=== PATIENT | female | born 1955 | race Caucasian/White ===

== ENCOUNTER 2016-02-21 22:21 | Emergency (ER) | payer MEDICARE ==
[~2016-02-21] VITALS: Ht 167.6 cm; Wt 99.8 kg
[~2016-02-21 22:21] MED LIST: ACETAMINOPHEN500 M5 PO; ALBUTEROL SULF8.5 GM INH; ASPIR 8181 MG ORAL; AZITHROMYCIN250 MG ORAL; FORTAMET500 MG PO; LOSARTAN POTASS50 MG ORAL; PREDNISONE20 MG ORAL; PROVENTIL HFA6.7 G1 IH; THIOTHIXENE5 MG ORAL
--- NOTE | 2016-02-21 22:29 | Emergency Room Report ---
History of Present Illness General Chief Complaint: Chest Pain Source: Patient Present Illness [facility] This is a 60-year-old female with multiple medical problem and also psychiatric problem. She presents with chief complaint of chest pain. She said his been ongoing since June of last year. She gets this frequently. Denies any fever chills denies any nausea vomiting. This most recent episode been lasting since 5 PM which is almost 6 hours ago. Complaining of pain to the left upper chest. No radiation. No shortness of breath. No diaphoresis. Take aspirin it did not help. Denies any other complaint. Similar symptom in the past. Allergies: Coded Allergies: NO KNOWN ALLERGIES (Unverified Allergy, Unknown, 02/18/14) Patient History Past Medical History: see triage record, old chart reviewed, DM, HTN, asthma, psych hx Past Surgical History: other Pertinent Family History: none Social History: Denies: smoking Now: No Immunizations: other Reviewed Nursing Documentation: PMH: Agreed, PSxH: Agreed Nursing Documentation-PMH Hx Hypertension: Yes - leukocytosis Hx Asthma: Yes Hx COPD: No - Sleep Apnea Hx Diabetes: Yes Hx Cancer: No Hx Headaches: Yes Hx Weakness: Yes Hx Fatigue: Yes Review of Systems Eye: Denies: blurred vision, eye pain ENT: Denies: ear pain, nose congestion, throat swelling Respiratory: Denies: cough, shortness of breath Cardiovascular: Reports: chest pain, Denies: palpitations Gastrointestinal: Denies: abdominal pain, diarrhea, nausea, vomiting Musculoskeletal: Denies: back pain, joint pain Skin: Denies: rash Neurological: Denies: headache, numbness Endocrine: Denies: increased thirst, increased urine Hematologic/Lymphatic: Denies: easy bruising All Other Systems: negative except mentioned in HPI Physical Exam Vital Signs Date Time Temp Pulse Resp B/P Pulse Ox O2 Delivery O2 Flow Rate FiO2 02/21/16 22:17 98.1 84 16 128/71 99 Room Air vitals normal Sp02 EP Interpretation: reviewed, normal General Appearance: well appearing, no apparent distress, alert, obese Head: normocephalic, atraumatic Eyes: bilateral eye EOMI, bilateral eye PERRL ENT: hearing grossly normal, normal pharynx Neck: full range of motion, supple, no meningismus Respiratory: chest non-tender, lungs clear, normal breath sounds Cardiovascular #1: regular rate, rhythm, no murmur Gastrointestinal: normal bowel sounds, non tender, no mass, no organomegaly, no bruit, non-distended Musculoskeletal: back normal, gait/station normal, normal range of motion Neurologic: alert, oriented x3 Psychiatric: mood/affect normal Skin: warm/dry Medical Decision Making Diagnostic Impression: Primary Impression: Chest pain Qualified Codes: R07.9 - Chest pain, unspecified Additional Impressions: Proteinuria Obesity (BMI 30-39.9) ER Course Patient presents with atypical chest pain. Very reproducible. Better with Toradol. No evidence of ACS, PE, dissection. She has a strong psychiatric component. This pain been ongoing for several months. We'll discharge home. Lab Results Impression labs unremarkable. EKG Diagnostic Results Rate: normal Rhythm: NSR ST Segments: no acute changes Rhythm Strip Diag. Results EP Interpretation: yes Rate: 85 Rhythm: NSR, no PVC's, no ectopy Chest X-Ray Diagnostic Results EP Interpretation: Yes Findings: no consolidation, no effusion, no pneumothorax, no acute cardiopulmonary disease Number of Views: 1 Last Vital Signs Date Time Temp Pulse Resp B/P Pulse Ox O2 Delivery O2 Flow Rate FiO2 02/21/16 22:17 98.1 84 16 128/71 99 Room Air Status: improved Disposition: HOME, SELF-CARE Condition: Stable Scripts Ibuprofen* (MOTRIN*) 600 Mg Tablet 600 MG ORAL THREE TIMES A DAY, #30 TAB 0 Refills Prov: PERFECTO ABREU M.D. 02/21/16 Patient Instructions: Nonspecific Chest Pain Additional Instructions: Followup with your DrMili in 3-5 days. Return if symptom worsen. PERFECTO ABREU M.D. Feb 21, 2016 22:29
[2016-02-21 22:51] VITALS: BP 128/71
[2016-02-21] MEDS ORDERED: Ketorolac 30mg Inj IV ONE (23:00)
[2016-02-21 23:19] LABS: BASOPHILS % (AUTO) 1.3 % (0.0-2.0); LYMPHOCYTES % (AUTO) 24.2 % (20.0-45.0); MEAN CORPUSCULAR HEMOGLOBIN 27.1 PG (27.0-31.0); MEAN CORPUSCULAR HGB CONC 30.7 G/DL (32.0-36.0); MEAN CORPUSCULAR VOLUME 88 FL (80-99); MEAN PLATELET VOLUME 6.7 FL (6.5-10.1); NEUTROPHILS % (AUTO) 55.5 % (45.0-75.0); PLATELET COUNT 434 K/UL (150-450); RED BLOOD COUNT 5.22 M/UL (4.20-5.40); RED CELL DISTRIBUTION WIDTH 13.5 % (11.6-14.8); WHITE BLOOD COUNT 12.8 K/UL (4.8-10.8)
[2016-02-21 23:28] VITALS: BP 133/78
[2016-02-21 23:28] LABS: APPEARANCE,URINE CLEAR; KETONES,URINE NEGATIVE (NEGATIVE); LEUKOCYTE ESTERASE ,URINE 1+ (NEGATIVE); NITRITE,URINE NEGATIVE (NEGATIVE); PH,URINE 6 (4.5-8.0); PROTEIN,URINE 1+ (NEGATIVE); UROBILINOGEN,URINE NORMAL MG/DL (0.0-1.0)
[2016-02-21 23:34] LABS: TROPONIN I < 0.30 ng/mL (<=0.30)
[2016-02-21 23:41] LABS: ALANINE AMINOTRANSFERASE 17 U/L (3-33); ALBUMIN/GLOBULIN RATIO 1.1 (1.0-2.7); ANION GAP 18 (5-15); ASPARTATE AMINO TRANSFERASE 17 U/L (5-40); CALCIUM 9.9 mg/dL (8.6-10.2); CARBON DIOXIDE 24 mEQ/L (20-30); CHLORIDE 95 mEQ/L (98-107); CREATININE 0.9 mg/dL (0.5-0.9); GLOMERULAR FILTRATION RATE > 60 mL/min (>60); HEMOLYSIS 35; POTASSIUM 4.6 mEQ/L (3.4-4.9); SODIUM 137 mEQ/L (135-145); TOTAL PROTEIN 7.2 g/dL (6.6-8.7)
[2016-02-21 23:46] LABS: BACTERIA,URINE FEW /HPF; RBC,URINE 0-2 /HPF (0 - 2); SQUAMOUS EPITHELIAL CELL,UR FEW /LPF (NONE/OCC)
[2016-02-21 23:51] LABS: CKMB 1.8 ng/mL (< 3.8)
[2016-02-21] MEDS ORDERED: IBUPROFEN600 MG ORAL (23:58)
[2016-02-22 00:22] VITALS: BP 140/79
[2016-02-22 00:23] VITALS: BP 133/78
--- NOTE | 2016-02-22 11:10 | Diagnostic Imaging Report ---
Indication: Chest Pain Comparison: 01/14/16 A single view chest radiograph was obtained. Findings: Heart is borderline enlarged. Lungs are clear. Bones are slight osteopenic. Impression: No acute disease
--- NOTE | 2016-02-24 19:51 | Cardiology Report ---
APPROVED REPORT EKG Measurement Heart [id number] Normal sinus rhythm Left axis deviation Abnormal ECG
== END 2016-02-22 00:23 | disposition home or self-care (01) ==
LOC: EDBD 22:21 → EMR 22:30
DX: R07.89 Other chest pain (principal); R80.9 Proteinuria, unspecified; J45.909 Unspecified asthma, uncomplicated; E11.9 Type 2 diabetes mellitus without complications; I10 Essential (primary) hypertension; E66.9 Obesity, unspecified; Z68.35 Body mass index [BMI] 35.0-35.9, adult; G47.30 Sleep apnea, unspecified
CPT/HCPCS: 36415; 71010; 80053; 81003; 82550; 82553; 84484; 85025; 93005; 96374; 99284; J1885

== ENCOUNTER 2016-07-16 07:20 | Emergency (ER) | payer SELFPAY ==
[~2016-07-16] VITALS: Ht 157.5 cm; Wt 88.0 kg
[~2016-07-16 07:20] MED LIST changes: +IBUPROFEN600 MG ORAL
--- NOTE | 2016-07-16 07:26 | Emergency Room Report ---
History of Present Illness General Chief Complaint: To Be Triaged Present Illness HPI 60YOF walk-in with 2 days of "a cold" that is "making my asthma worse." Endorses dry cough, wheezing at home. Not much improvement with home proventil/ abuterol. Otherwise denies chest pain, SOB, fever/chills, URI symptoms. Also, states she had an "emergency doctor come to my house" 2 days ago and gave me Keflex for "abscess in my genital area" that is not improving. + history of DM. No previous abscess. Otherwise denies abd pain, nausea/vomiting, dysuria. Allergies: Coded Allergies: NO KNOWN ALLERGIES (Unverified Allergy, Unknown, 02/18/14) Patient History Past Medical History: DM, HTN, arrhyth, psych hx Past Surgical History: none Pertinent Family History: none Social History: Denies: alcohol use, drug use, smoking Now: No Immunizations: UTD Reviewed Nursing Documentation: PMH: Agreed, PSxH: Agreed Nursing Documentation-PMH Hx Hypertension: Yes - leukocytosis Hx Asthma: Yes Hx COPD: No - Sleep Apnea Hx Diabetes: Yes Hx Cancer: No Hx Headaches: Yes Hx Weakness: Yes Hx Fatigue: Yes Review of Systems All Other Systems: negative except mentioned in HPI Physical Exam Sp02 EP Interpretation: reviewed, abnormal General Appearance: normal inspection, well appearing, no apparent distress, alert, GCS 15, non-toxic Eyes: bilateral eye EOMI, bilateral eye PERRL ENT: normal ENT inspection, hearing grossly normal, normal voice Neck: normal inspection, full range of motion, supple, no bony tend Respiratory: normal inspection, lungs clear, normal breath sounds, no respiratory distress, no retraction, no accessory muscle use, speaking full sentences, wheezing Cardiovascular #1: regular rate, rhythm, no edema Gastrointestinal: normal inspection, normal bowel sounds, non tender, soft, no guarding, no hernia Genitourinary: no CVA tenderness Musculoskeletal: normal inspection, back normal, normal range of motion, Shahnaz' s Sign negative Neurologic: normal inspection, alert, oriented x3, responsive, senior adults director III-XII nml as tested, speech normal Psychiatric: normal inspection, judgement/insight normal, mood/affect normal Skin: normal inspection, normal color, no rash Lymphatic: normal inspection Medical Decision Making Diagnostic Impression: Primary Impression: Asthma Qualified Codes: J45.21 - Mild intermittent asthma with (acute) exacerbation ER Course Acute asthma exac - VSS. Afebrile - No rhonchi or systemic symptoms to suggest PNA - Improved with 1 albuterol neb, prednisone - Rx proventil refilled, Rx prednisone Genital abscess - Will add on Bactrim given DM history PMD followup as needed DC home Status: improved Disposition: HOME, SELF-CARE Scripts Trimethoprim/Sulfamethoxazole 160/800* (BACTRIM DS TABLET*) 1 Each Tablet 1 TAB ORAL Q12H for 7 Days, #14 TAB 0 Refills Prov: DELFINO MACKEY M.D. 07/16/16 Prednisone* (PREDNISONE*) 20 Mg Tablet 40 MG ORAL DAILY for 4 Days, #4 TAB Prov: DELFINO MACKEY M.D. 07/16/16 Albuterol Sulfate (PROVENTIL HFA) 6.7 Gm Hfa.aer.ad 6.7 GM IH QID for cough, chest tightness for 7 Days, #1 UNIT Prov: DELFINO MACKEY M.D. 07/16/16 DELFINO MACKEY M.D. Jul 16, 2016 07:26
[2016-07-16] MEDS ORDERED: AMIODARONE HCL400 M1 ORAL (07:35)
[2016-07-16] MEDS ORDERED: CARVEDILOL25 MG ORAL (07:35)
[2016-07-16] MEDS ORDERED: DIGOXIN125 MCG ORAL (07:35)
[2016-07-16] MEDS ORDERED: FOLIC ACID1 MG ORAL (07:35)
[2016-07-16] MEDS ORDERED: BENAZEPRIL HCL40 MG ORAL (07:36)
[2016-07-16] MEDS ORDERED: ATORVASTATIN CA20 MG ORAL (07:36)
[2016-07-16] MEDS ORDERED: FAMOTIDINE20 MG ORAL (07:36)
[2016-07-16] MEDS ORDERED: Albuterol ud Inhalation HHN ONE (07:45)
[2016-07-16] MEDS ORDERED: PredniSONE 20mg tab ORAL ONE (07:45)
[2016-07-16 07:48] VITALS: BP 122/75
[2016-07-16] MEDS ORDERED: PROVENTIL HFA6.7 G1 IH (07:48)
[2016-07-16] MEDS ORDERED: BACTRIM DS TAB1 EAC1 ORAL (07:48)
[2016-07-16] MEDS ORDERED: PREDNISONE20 MG ORAL (07:48)
[2016-07-16 08:27] VITALS: BP 113/72
== END 2016-07-16 08:35 | disposition home or self-care (01) ==
LOC: EMR 07:32
DX: J45.901 Unspecified asthma with (acute) exacerbation (principal); E11.9 Type 2 diabetes mellitus without complications; I10 Essential (primary) hypertension; G47.30 Sleep apnea, unspecified
CPT/HCPCS: 94640; 99284

== ENCOUNTER 2016-12-17 00:29 | Emergency (ER) | payer SELFPAY ==
[~2016-12-17] VITALS: Ht 157.5 cm; Wt 87.1 kg
[~2016-12-17 00:29] MED LIST changes: +AMIODARONE HCL400 M1 ORAL; +ASPIRIN81 MG ORAL; +ATORVASTATIN CA20 MG ORAL; +BACTRIM DS TAB1 EAC1 ORAL; +BENAZEPRIL HCL40 MG ORAL; +CARVEDILOL25 MG ORAL; +DIGOXIN125 MCG ORAL; +FAMOTIDINE20 MG ORAL; +FOLIC ACID1 MG ORAL; +LOSARTAN POTASS25 MG ORAL; +METFORMIN HCL500 M1 ORAL
[2016-12-17] MEDS ORDERED: GLIPIZIDE5 MG ORAL (00:34)
[2016-12-17] MEDS ORDERED: ASPIRIN EC81 MG ORAL (00:34)
[2016-12-17] MEDS ORDERED: CEFPODOXIM50 MG/5 ML PO (00:34)
[2016-12-17] MEDS ORDERED: METFORMIN HCL1000 M1 ORAL (00:34)
[2016-12-17] MEDS ORDERED: LOSARTAN POTASS25 MG ORAL (00:34)
[2016-12-17] MEDS ORDERED: THIOTHIXENE2 MG ORAL (00:34)
[2016-12-17 01:10] VITALS: BP 128/66
[2016-12-17] MEDS ORDERED: Ketorolac 30mg Inj IV ONE (01:30)
[2016-12-17 01:55] LABS: EOSINOPHILS % (AUTO) 7.6 % (0.0-3.0); HEMOGLOBIN 13.9 G/DL (12.0-16.0); LYMPHOCYTES % (AUTO) 18.3 % (20.0-45.0); MEAN CORPUSCULAR VOLUME 86 FL (80-99); MONOCYTES % (AUTO) 7.4 % (1.0-10.0); NEUTROPHILS % (AUTO) 65.7 % (45.0-75.0); PLATELET COUNT 419 K/UL (150-450); RED BLOOD COUNT 5.14 M/UL (4.20-5.40); RED CELL DISTRIBUTION WIDTH 13.1 % (11.6-14.8)
[2016-12-17 02:07] LABS: ALANINE AMINOTRANSFERASE 27 U/L (12-78); ALBUMIN 3.3 G/DL (3.4-5.0); ALBUMIN/GLOBULIN RATIO 0.8 (1.0-2.7); ALKALINE PHOSPHATASE 103 U/L (46-116); ANION GAP 9 mmol/L (5-15); ASPARTATE AMINO TRANSFERASE 18 U/L (15-37); BILIRUBIN,TOTAL 0.2 MG/DL (0.2-1.0); BLOOD UREA NITROGEN 20 mg/dL (7-18); CALCIUM 9.5 MG/DL (8.5-10.1); CARBON DIOXIDE 27 MMOL/L (21-32); CHLORIDE 103 MMOL/L (98-107); POTASSIUM 3.9 MMOL/L (3.5-5.1); SODIUM 139 MMOL/L (136-145)
[2016-12-17 02:14] LABS: CKMB 1.1 NG/ML (0.0-3.6); CREATINE KINASE 85 U/L (26-308)
[2016-12-17 03:40] VITALS: BP 127/81
--- NOTE | 2016-12-17 03:52 | Emergency Room Report ---
History of Present Illness General Chief Complaint: Chest Pain Source: Patient Present Illness HPI 61YOF BIBEMS for chest pain for 1 day Worse with movement' Worse "when I push on it." No fever/chills, SOB, cough, abd pain, nausea/vomiting States she has chronic "leukocytosis." Hsitory of HTN, asthma Allergies: Coded Allergies: NO KNOWN ALLERGIES (Unverified Allergy, Unknown, 02/18/14) Patient History Past Medical History: other - See HPI Past Surgical History: none Pertinent Family History: none Social History: Denies: smoking, alcohol use, drug use Last Menstrual Period: None Now: No Immunizations: UTD Reviewed Nursing Documentation: PMH: Agreed, PSxH: Agreed Nursing Documentation-PMH Hx Hypertension: Yes Hx Asthma: Yes Hx COPD: No - Sleep Apnea Hx Diabetes: Yes Hx Cancer: No Hx Headaches: Yes Hx Weakness: Yes Hx Fatigue: Yes Review of Systems All Other Systems: negative except mentioned in HPI Physical Exam Vital Signs Date Time Temp Pulse Resp B/P (MAP) Pulse Ox O2 Delivery O2 Flow Rate FiO2 12/17/16 00:25 98.1 93 18 163/88 97 Room Air Sp02 EP Interpretation: reviewed, normal General Appearance: normal inspection, well appearing, no apparent distress, alert, GCS 15, non-toxic Head: normocephalic, atraumatic Eyes: bilateral eye PERRL, bilateral eye EOMI ENT: normal ENT inspection, hearing grossly normal, normal voice Neck: normal inspection, full range of motion, supple, no bony tend Respiratory: normal inspection, lungs clear, normal breath sounds, no respiratory distress, no retraction, no wheezing, other - Palpation illiicts pain, chest symmetrical, palpation of chest normal Cardiovascular #1: regular rate, rhythm, no edema Gastrointestinal: normal inspection, normal bowel sounds, non tender, soft, no guarding, no hernia Genitourinary: no CVA tenderness Musculoskeletal: normal inspection, back normal, normal range of motion, Shahnaz' s Sign negative Neurologic: normal inspection, alert, responsive, speech normal Psychiatric: normal inspection, judgement/insight normal, mood/affect normal Skin: normal inspection, normal color, no rash Medical Decision Making Diagnostic Impression: Primary Impression: Chest pain Qualified Codes: R07.9 - Chest pain, unspecified ER Course ECG is NSR, no ischemia VSS. Afebrile. Labs: Known leukocytosis but afebrile and no sign of infection No metabolic abnormalities Pain is reproducible, worse with movement - low suspicion for ACS Improved with toradol Possible angina vs MSK type pain Advised PMD followup for Cardiology outpatient stress test EKG Diagnostic Results Rate: normal Rhythm: NSR ST Segments: no acute changes ASA given to the pt in ED: No Last Vital Signs Date Time Temp Pulse Resp B/P (MAP) Pulse Ox O2 Delivery O2 Flow Rate FiO2 12/17/16 01:10 93 18 Room Air 12/17/16 01:10 98.1 128/66 95 Status: improved Disposition: HOME, SELF-CARE Condition: Improved Referrals: NOT CHOSEN IPA/MD,REFERRING (PCP) Patient Instructions: Nonspecific Chest Pain DELFINO MACKEY M.D. Dec 17, 2016 03:52
[2016-12-17 03:53] VITALS: BP 127/81
--- NOTE | 2016-12-17 15:25 | Cardiology Report ---
APPROVED REPORT EKG Measurement Heart [id number] [id number] Normal sinus rhythm Left axis deviation Abnormal ECG
--- NOTE | 2016-12-17 15:25 | Cardiology Report ---
APPROVED REPORT EKG Measurement Heart [id number] Normal sinus rhythm Left axis deviation Abnormal ECG
--- NOTE | 2016-12-17 15:25 | Cardiology Report ---
APPROVED REPORT EKG Measurement Heart [id number] Normal sinus rhythm Left axis deviation Abnormal ECG
== END 2016-12-17 03:40 | disposition home or self-care (01) ==
LOC: EDBD 00:29 → EMR 01:00
DX: R07.9 Chest pain, unspecified (principal); E11.9 Type 2 diabetes mellitus without complications; I10 Essential (primary) hypertension; J45.909 Unspecified asthma, uncomplicated
CPT/HCPCS: 36415; 80053; 82550; 82553; 84484; 85025; 93005; 96374; 99284; J1885

== ENCOUNTER 2017-03-04 17:59 | Emergency (ER) | payer SELFPAY ==
[~2017-03-04] VITALS: Ht 152.4 cm; Wt 70.3 kg
[~2017-03-04 17:59] MED LIST changes: +ASPIRIN EC81 MG ORAL; +CEFPODOXIM50 MG/5 ML PO; +GLIPIZIDE5 MG ORAL; +METFORMIN HCL1000 M1 ORAL; +THIOTHIXENE2 MG ORAL
[2017-03-04 18:30] VITALS: BP 160/78
--- NOTE | 2017-03-04 19:06 | Emergency Room Report ---
History of Present Illness General Chief Complaint: Headache Source: EMS Present Illness HPI Patient is a 61-year-old female presents today with complaints of headache that began 2 days ago. She states the headache began gradually. She states that medicine in severity and she's been taking Excedrin with minimal relief. She denies any nausea, vomiting, photophobia associated symptoms. Patient's extensive medical history including speech impediment and tardive dyskensia. She denies any tobacco, alcohol or drug use. Allergies: Coded Allergies: NO KNOWN ALLERGIES (Unverified Allergy, Unknown, 02/18/14) Patient History Reviewed Nursing Documentation: PMH: Agreed, PSxH: Agreed Nursing Documentation-PMH Past Medical History: No History, Except For Hx Hypertension: Yes Hx Asthma: Yes Hx COPD: No - Sleep Apnea Hx Diabetes: Yes Hx Cancer: Yes History Of Psychiatric Problem: Yes Hx Headaches: Yes Hx Weakness: Yes Hx Fatigue: Yes Review of Systems Neurological: Reports: headache All Other Systems: negative except mentioned in HPI Physical Exam Vital Signs Date Time Temp Pulse Resp B/P (MAP) Pulse Ox O2 Delivery O2 Flow Rate FiO2 03/04/17 17:53 98.2 112 20 168/80 98 Room Air Sp02 EP Interpretation: reviewed, normal General Appearance: no apparent distress, alert, GCS 15, non-toxic Head: normocephalic, atraumatic Eyes: bilateral eye normal inspection, bilateral eye PERRL ENT: hearing grossly normal, normal pharynx, no angioedema, normal voice Neck: full range of motion, supple/symm/no masses Respiratory: chest non-tender, lungs clear, normal breath sounds, speaking full sentences Cardiovascular #1: regular rate, rhythm, no edema Cardiovascular #2: 2+ carotid (R), 2+ carotid (L), 2+ radial (R), 2+ radial (L) , 2+ dorsalis pedis (R), 2+ dorsalis pedis (L) Gastrointestinal: normal bowel sounds, non tender, soft, non-distended, no guarding, no rebound Rectal: deferred Genitourinary: normal inspection, no CVA tenderness Musculoskeletal: back normal, gait/station normal, normal range of motion, non- tender, calf tenderness Neurologic: alert, oriented x3, responsive, shop and alteration tailor III-XII nml as tested, motor strength/tone normal, sensory intact, normal gait, speech normal, no pronator, grossly normal, oriented Psychiatric: judgement/insight normal, memory normal, mood/affect normal, no suicidal/homicidal ideation Reflexes: 3+ bicep (R), 3+ bicep (L), 3+ tricep (R), 3+ tricep (L), 3+ knee (R) , 3+ knee (L) Skin: normal color, no rash, warm/dry, well hydrated Lymphatic: no adenopathy Medical Decision Making PA Attestation Supervising physician Dr. Nj Diagnostic Impression: Primary Impression: Headache ER Course Patient is a 61-year-old female presents today with complaints of headache. Low Suspicion for CVA or SH, the patient has a normal neurologic examination with gradual onset. It repeat neuro examination at 2007 is normal. Patient is given Toradol, Decadron, Reglan and Benadryl with improvement of headache on reevaluation. Patient is discharged home with Fioricet and instructed to follow up with PCP for evaluation. Patient mentions we will plan. Last Vital Signs Date Time Temp Pulse Resp B/P (MAP) Pulse Ox O2 Delivery O2 Flow Rate FiO2 03/04/17 17:53 98.2 112 20 168/80 98 Room Air Status: improved Disposition: HOME, SELF-CARE Condition: Stable Scripts Acetamin/Butalbital/Caffeine* (FIORICET*) 1 Ea Tab 1 TAB ORAL Q4H, #20 TAB Prov: Fatou Greene 03/04/17 Patient Instructions: General Headache Without Cause Fatou Greene Mar 04, 2017 19:06
[2017-03-04] MEDS ORDERED: Dexamethasone 20mg/5ml ORAL ONE (19:15)
[2017-03-04] MEDS ORDERED: Ketorolac 60mg Inj IM ONE (19:15)
[2017-03-04] MEDS ORDERED: Metoclopramide 10mg/10ml Liq NG ONE (19:15)
[2017-03-04] MEDS ORDERED: FIORICET1 EA ORAL (20:10)
[2017-03-04 20:22] VITALS: BP 127/81
[2017-03-04 20:24] VITALS: BP 127/81
== END 2017-03-04 20:24 | disposition home or self-care (01) ==
LOC: EDBD 17:59 → EMR 19:05
DX: R51 Headache (principal); I10 Essential (primary) hypertension; J45.909 Unspecified asthma, uncomplicated; E11.9 Type 2 diabetes mellitus without complications; G47.30 Sleep apnea, unspecified
CPT/HCPCS: 96372; 99284; J1100; J8540

== ENCOUNTER 2018-06-14 10:22 | Inpatient (IN) | payer MEDICARE ==
[~2018-06-14] VITALS: Ht 157.5 cm; Wt 98.0 kg
[~2018-06-14 10:22] MED LIST changes: +FIORICET1 EA ORAL
--- NOTE | 2018-06-14 10:37 | NUR ---
ED Nurse Note: Pt came into the ER w/ complaints of "not feeling well" and generalized weakness for the past 3 weeks. Pt states that she has been in and out of the ED but has not been admitted. She wants to be checked. Pt states that she has a hx of leukocytosis. Pt is complainign of generalized pain 09/18. Pt is A + O x4. Ambulatory. Skin warm to touch.
[2018-06-14 10:51] VITALS: BP 145/72
--- NOTE | 2018-06-14 11:00 | Emergency Room Report ---
History of Present Illness General Chief Complaint: General Complaint Source: Patient Present Illness HPI The patient states "I have been sick for a long time stinks." When I asked the patient to elaborate, she states "I am sick. I am here for you to fix me up." She also states she has felt short of breath and has generalized weakness. She states she's been coming her for many months without answers. 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 She states she had been using C Pap. She feels like her oxygenation is low. She has no other specific complaints. Allergies: Coded Allergies: NO KNOWN ALLERGIES (Unverified Allergy, Unknown, 02/18/14) Patient History Past Medical History: see triage record, DM, HTN, asthma Past Surgical History: other - Abdominal surgery as a child Social History: Denies: smoking, alcohol use, drug use Last Menstrual Period: menoupause Now: No Reviewed Nursing Documentation: PMH: Agreed; PSxH: Agreed Nursing Documentation-PMH Hx Hypertension: Yes Hx Asthma: Yes Hx COPD: No - Sleep Apnea Hx Diabetes: Yes Hx Cancer: Yes Hx Headaches: Yes Hx Weakness: Yes Hx Fatigue: Yes Review of Systems All Other Systems: negative except mentioned in HPI Physical Exam Vital Signs Date Time Temp Pulse Resp B/P (MAP) Pulse Ox O2 Delivery O2 Flow Rate FiO2 06/14/18 10:23 98.8 93 16 92 Room Air 06/14/18 10:51 98 06/14/18 10:51 145/72 Sp02 EP Interpretation: reviewed, normal General Appearance: no apparent distress, alert, GCS 15, non-toxic Head: normocephalic, atraumatic Eyes: bilateral eye normal inspection, bilateral eye PERRL ENT: hearing grossly normal, normal pharynx, no angioedema, normal voice Neck: full range of motion, supple/symm/no masses Respiratory: chest non-tender, lungs clear, normal breath sounds, no respiratory distress, no retraction, no accessory muscle use, speaking full sentences Cardiovascular #1: regular rate, rhythm, no edema Gastrointestinal: normal bowel sounds, non tender, soft, non-distended, no guarding, no rebound Rectal: deferred Musculoskeletal: back normal, normal range of motion, non-tender, swelling - + 1 swelling BLE Neurologic: alert, oriented x3, responsive, motor strength/tone normal, sensory intact, speech normal Psychiatric: memory normal, mood/affect normal, no suicidal/homicidal ideation Skin: normal color, no rash, warm/dry, well hydrated Medical Decision Making Diagnostic Impression: Primary Impression: Acute exacerbation of CHF (congestive heart failure) ER Course The patient is found to have CHF exacerbation. The patient is a very poor historian and did not tell me that she had CHF. However, this is identified on chest x-ray. The patient did complain of shortness of breath. Initially I had given the patient IV fluids, however, after identifying the CHF she was given Lasix. The patient will be admitted for CHF exacerbation. She remained stable and comfortable in emergency department without respiratory distress or desaturation. She is admitted to the telemetry floor. Laboratory Tests Test 06/14/18 10:39 06/14/18 10:50 Urine Color Pale yellow Urine Appearance Clear Urine pH 7 (4.5-8.0) Urine Specific Speed 1.005 (1.005-1.035) Urine Protein 1+ (NEGATIVE) H Urine Glucose (UA) 2+ (NEGATIVE) H Urine Ketones Negative (NEGATIVE) Urine Blood Negative (NEGATIVE) Urine Nitrite Negative (NEGATIVE) Urine Bilirubin Negative (NEGATIVE) Urine Urobilinogen Normal MG/DL (0.0-1.0) Urine Leukocyte Esterase Negative (NEGATIVE) Urine RBC 0-2 /HPF (0 - 2) Urine WBC 0-2 /HPF (0 - 2) Urine Squamous Epithelial Cells Few /LPF (NONE/OCC) Urine Bacteria Occasional /HPF (NONE) White Blood Count 12.2 K/UL (4.8-10.8) H Red Blood Count 5.29 M/UL (4.20-5.40) Hemoglobin 13.7 G/DL (12.0-16.0) Hematocrit 43.8 % (37.0-47.0) Mean Corpuscular Volume 83 FL (80-99) Mean Corpuscular Hemoglobin 25.8 PG (27.0-31.0) L Mean Corpuscular Hemoglobin Concent 31.2 G/DL (32.0-36.0) L Red Cell Distribution Width 13.3 % (11.6-14.8) Platelet Count 444 K/UL (150-450) Mean Platelet Volume 6.2 FL (6.5-10.1) L Neutrophils (%) (Auto) 69.5 % (45.0-75.0) Lymphocytes (%) (Auto) 17.5 % (20.0-45.0) L Monocytes (%) (Auto) 6.5 % (1.0-10.0) Eosinophils (%) (Auto) 5.2 % (0.0-3.0) H Basophils (%) (Auto) 1.3 % (0.0-2.0) Sodium Level 136 MMOL/L (136-145) Potassium Level 4.5 MMOL/L (3.5-5.1) Chloride Level 100 MMOL/L (98-107) Carbon Dioxide Level 30 MMOL/L (21-32) Anion Gap 6 mmol/L (5-15) Blood Urea Nitrogen 16 mg/dL (7-18) Creatinine 0.9 MG/DL (0.55-1.30) Estimate Glomerular Filtration Rate > 60 mL/min (>60) Glucose Level 272 MG/DL (74-106) H Calcium Level 9.4 MG/DL (8.5-10.1) Total Bilirubin 0.2 MG/DL (0.2-1.0) Aspartate Amino Transferase (AST) 16 U/L (15-37) Alanine Aminotransferase (ALT) 31 U/L (12-78) Alkaline Phosphatase 125 U/L (46-116) H Total Creatine Kinase 77 U/L (26-308) Creatine Kinase MB 1.4 NG/ML (0.0-3.6) Creatine Kinase MB Relative Index 1.8 Troponin I 0.000 ng/mL (0.000-0.056) Total Protein 8.0 G/DL (6.4-8.2) Albumin 3.4 G/DL (3.4-5.0) Globulin 4.6 g/dL Albumin/Globulin Ratio 0.7 (1.0-2.7) L Thyroid Stimulating Hormone (TSH) 2.764 uiU/mL (0.358-3.740) Free Thyroxine 0.93 NG/DL (0.76-1.46) Free Triiodothyronine 3.4 pg/mL (2.3-4.2) EKG Diagnostic Results Rate: normal Rhythm: NSR ST Segments: no acute changes Rhythm Strip Diag. Results EP Interpretation: yes Rate: 90's Rhythm: NSR, no PVC's, no ectopy Chest X-Ray Diagnostic Results Chest X-Ray Diagnostic Results : Chest X-Ray Ordered: Yes # of Views/Limited/Complete: 1 View Indication: Shortness of Breath EP Interpretation: Yes Interpretation: no pneumothorax, other - Cardiomegaly and pulmonary congestion Impression: Other - C/W CHF Electronically Signed by: Nidia Arnett DO Last Vital Signs Date Time Temp Pulse Resp B/P (MAP) Pulse Ox O2 Delivery O2 Flow Rate FiO2 06/14/18 10:51 98.7 100 21 145/72 98 Room Air 06/14/18 10:51 98 Status: improved Disposition: ADMITTED INPATIENT Condition: Serious Nidia Arnett DO June 14, 2018 11:00
[2018-06-14 11:02] LABS: BASOPHILS % (AUTO) 1.3 % (0.0-2.0); EOSINOPHILS % (AUTO) 5.2 % (0.0-3.0); HEMATOCRIT 43.8 % (37.0-47.0); HEMOGLOBIN 13.7 G/DL (12.0-16.0); LYMPHOCYTES % (AUTO) 17.5 % (20.0-45.0); MEAN CORPUSCULAR VOLUME 83 FL (80-99); MONOCYTES % (AUTO) 6.5 % (1.0-10.0); NEUTROPHILS % (AUTO) 69.5 % (45.0-75.0); PLATELET COUNT 444 K/UL (150-450); RED BLOOD COUNT 5.29 M/UL (4.20-5.40); RED CELL DISTRIBUTION WIDTH 13.3 % (11.6-14.8); WHITE BLOOD COUNT 12.2 K/UL (4.8-10.8)
[2018-06-14 11:19] LABS: ANION GAP 6 mmol/L (5-15); BLOOD UREA NITROGEN 16 mg/dL (7-18); CALCIUM 9.4 MG/DL (8.5-10.1); CARBON DIOXIDE 30 MMOL/L (21-32); CHLORIDE 100 MMOL/L (98-107); CREATININE 0.9 MG/DL (0.55-1.30); POTASSIUM 4.5 MMOL/L (3.5-5.1); SODIUM 136 MMOL/L (136-145)
[2018-06-14 11:34] LABS: ALANINE AMINOTRANSFERASE 31 U/L (12-78); ALBUMIN 3.4 G/DL (3.4-5.0); ALBUMIN/GLOBULIN RATIO 0.7 (1.0-2.7); ALKALINE PHOSPHATASE 125 U/L (46-116); ASPARTATE AMINO TRANSFERASE 16 U/L (15-37); BILIRUBIN,TOTAL 0.2 MG/DL (0.2-1.0); CKMB 1.4 NG/ML (0.0-3.6); CREATINE KINASE 77 U/L (26-308)
--- NOTE | 2018-06-14 11:35 | Diagnostic Imaging Report ---
Indication: Dyspnea Comparison: 04/01/2018 A single view chest radiograph was obtained. Findings: Pulmonary vascular congestion demonstrated with cardiomegaly. Bones are unremarkable. IMPRESSION: Congestive heart failure
[2018-06-14 12:45] LABS: APPEARANCE,URINE CLEAR; BILIRUBIN, URINE NEGATIVE (NEGATIVE); COLOR,URINE PALE YELLOW; GLUCOSE, URINE (UA) 2+ (NEGATIVE); KETONES,URINE NEGATIVE (NEGATIVE); LEUKOCYTE ESTERASE ,URINE NEGATIVE (NEGATIVE); NITRITE,URINE NEGATIVE (NEGATIVE); PH,URINE 7 (4.5-8.0); PROTEIN,URINE 1+ (NEGATIVE); UROBILINOGEN,URINE NORMAL MG/DL (0.0-1.0)
[2018-06-14 12:54] VITALS: BP 128/70
[2018-06-14 14:56] VITALS: BP 125/75
--- NOTE | 2018-06-14 16:36 | NUR ---
ED Nurse Note: Gave telephone report to LEILA Ventura. Bed uunavailable. Will call back in 10 mins.
--- NOTE | 2018-06-14 16:49 | NUR ---
ED Nurse Note: Pt transferred up to tele unit. No acute distress noted. Left ER w/ all belongings.
--- NOTE | 2018-06-14 17:53 | NUR ---
NURSE NOTES: Patient arrived to unit at 1710 via gurney. Report received from LEILA Duenas. Patient oriented to room. Side rails up x2, bed is locked, and call light is within reach. Dr. Khan called for admission, voicemail left. Awaiting call back.
--- NOTE | 2018-06-14 18:31 | NUR ---
NURSE NOTES: Dr. Skinner is covering for Dr. Khan. New admission orders received.
--- NOTE | 2018-06-14 19:18 | NUR ---
HAND-OFF: Report given to LEILA Harkins.
--- NOTE | 2018-06-14 19:19 | NUR ---
NURSE NOTES: Got report from Yamilka DEE. Pt in stable condition. Denies any pain. No s/s of distress or discomfort noted. Pt resting in bed comfortably. Bed in low and locked position, call light within reach, bedside table within reach. Continue to monitor.
[2018-06-14 20:00] VITALS: BP 131/74
[2018-06-14] MEDS ORDERED: NovoLOG Insulin Flexpen SUBQ SCH (21:00)
[2018-06-14] MEDS ORDERED: Heparin 5000 units/ml inj SUBQ SCH (21:00)
--- NOTE | 2018-06-14 23:00 | NUR ---
HAND-OFF: Report given to Aron DEE. Endorsed plan of care.
--- NOTE | 2018-06-14 23:39 | NUR ---
NURSE NOTES: Patient transferred to [facility]. Received report from Torin DEE. No Signs of distress noted. VSS. No SOB. AOx4. IV site intact and flushing well. Needs attended. In stable condition.
--- NOTE | 2018-06-15 03:42 | NUR ---
NURSE NOTES: Patient complaining of back pain. Called MD with orders noted and carried out.
--- NOTE | 2018-06-15 04:00 | History and Physical Report ---
DATE OF ADMISSION: 06/14/2018 CARDIOLOGY EVALUATION ADMITTING PHYSICIAN: Giovani Skinner M.D. REFERRING PHYSICIAN: Giacomo Khan M.D. REASON FOR ADMISSION: Congestive heart failure. HISTORY OF PRESENT ILLNESS: This is a 62-year-old female who presented to the emergency room complaining of feeling sick with shortness of breath and generalized weakness. She is a poor historian. She was found to have signs of congestive heart failure and hospitalized. I have been asked to assist with cardiovascular care. The patient was hospitalized here in 2016 with chest pain. She was monitored at that time and had episodes of asymptomatic second-degree AV block type 1 (Wenckebach). No pacemaker was felt to be indicated. The patient also had a myocardial perfusion scan at that time that revealed normal ejection fraction and no evidence of flow-limiting coronary artery disease. PAST MEDICAL HISTORY: Notable for hypertension, type 2 diabetes mellitus, asthma, psychiatric disorder, and sleep apnea. MEDICATIONS: Reviewed and reconciled. SOCIAL HISTORY: Negative for smoking, alcohol, or substance abuse. FAMILY HISTORY: Noncontributory. REVIEW OF SYSTEMS: Notable for postmenopausal state, frequent headaches. The patient is not using CPAP at this time as she feels she has been cured. She has had problems with obesity. PHYSICAL EXAMINATION: VITAL SIGNS: Blood pressure 145/72, pulse 93, respirations 16, afebrile. GENERAL: Obese female. LUNGS: Diminished breath sounds. Few rales. HEART: Regular rhythm and rate. Normal S1, S2 with no murmur, rub, or gallop. ABDOMEN: Soft and nontender. EXTREMITIES: No edema LABORATORY DATA: Urinalysis with no active sediment. White count 12.2, hemoglobin 13.7. Sodium 136, potassium 4.5, bicarb 30, BUN 16, and creatinine 0.9. Troponin is 0. TSH is 2.7. Chest x-ray reveals pulmonary venous congestion. IMPRESSION: 1. Acute diastolic congestive heart failure. 2. Hypertensive heart disease. 3. History of asymptomatic heart block. 4. Type 2 diabetes mellitus. PLAN: 1. Diuresis. 2. Obtain natriuretic peptide assay and trend results in conjunction with clinical parameters. 3. DVT prophylaxis. 4. Urine tox screen. 5. Optimize antihypertensive regimen. 6. Echocardiogram. Giovani Skinner M.D. DR: FLOYD JOB#: [id number] CC: TREVOR
[2018-06-15 04:46] VITALS: BP 138/81
[2018-06-15] MEDS: NovoLOG Insulin Flexpen SUBQ SCH ×3 (06:18→16:49)
[2018-06-15 07:12] LABS: BASOPHILS % (AUTO) 0.4 % (0.0-2.0); EOSINOPHILS % (AUTO) 6.3 % (0.0-3.0); HEMATOCRIT 41.9 % (37.0-47.0); HEMOGLOBIN 13.1 G/DL (12.0-16.0); LYMPHOCYTES % (AUTO) 17.1 % (20.0-45.0); MEAN CORPUSCULAR VOLUME 84 FL (80-99); MONOCYTES % (AUTO) 6.2 % (1.0-10.0); NEUTROPHILS % (AUTO) 69.9 % (45.0-75.0); PLATELET COUNT 427 K/UL (150-450); RED BLOOD COUNT 4.98 M/UL (4.20-5.40); RED CELL DISTRIBUTION WIDTH 13.4 % (11.6-14.8); WHITE BLOOD COUNT 11.5 K/UL (4.8-10.8)
[2018-06-15 07:14] LABS: ALANINE AMINOTRANSFERASE 32 U/L (12-78); ALBUMIN 3.2 G/DL (3.4-5.0); ALBUMIN/GLOBULIN RATIO 0.8 (1.0-2.7); ALKALINE PHOSPHATASE 110 U/L (46-116); ANION GAP 6 mmol/L (5-15); ASPARTATE AMINO TRANSFERASE 19 U/L (15-37); BILIRUBIN,TOTAL 0.4 MG/DL (0.2-1.0); BLOOD UREA NITROGEN 17 mg/dL (7-18); CALCIUM 9.3 MG/DL (8.5-10.1); CARBON DIOXIDE 31 MMOL/L (21-32); CHLORIDE 99 MMOL/L (98-107); POTASSIUM 4.3 MMOL/L (3.5-5.1); SODIUM 136 MMOL/L (136-145)
--- NOTE | 2018-06-15 07:35 | NUR ---
NURSE NOTES: AWAKE/ALERT. C/O BACK AND NECK PAIN. SCALE 10/10. POSITIONED FOR COMFORT. IN NO DISTRESS.
[2018-06-15 08:00] VITALS: BP 108/84
[2018-06-15] MEDS: metFORMIN 500mg tab ORAL SCH ×2 (08:25→17:15)
[2018-06-15] MEDS ORDERED: Heparin 5000 units/ml inj SUBQ SCH (09:00)
[2018-06-15] MEDS ORDERED: GlipiZIDE 5mg tab ORAL SCH ×2 (09:00)
[2018-06-15] MEDS ORDERED: metFORMIN 500mg tab ORAL SCH (09:00)
[2018-06-15] MEDS ORDERED: Losartan 50mg tab ORAL SCH ×2 (09:00)
--- NOTE | 2018-06-15 09:41 | History & Physical ---
History and Physical History & Physicial HISTORY OF PRESENT ILLNESS: This is a 62-year-old female who presented to the emergency room complaining of feeling sick with shortness of breath and generalized weakness. She is a poor historian. She was found to have signs of congestive heart failure and hospitalized. The patient was hospitalized here in 2016 with chest pain. She was monitored at that time and had episodes of asymptomatic second-degree AV block type 1 (Wenckebach). No pacemaker was felt to be indicated. The patient also had a myocardial perfusion scan at that time that revealed normal ejection fraction and no evidence of flow-limiting coronary artery disease. PAST MEDICAL HISTORY: Notable for hypertension, type 2 diabetes mellitus, asthma, psychiatric disorder, and sleep apnea. MEDICATIONS: Reviewed and reconciled. SOCIAL HISTORY: Negative for smoking, alcohol, or substance abuse. FAMILY HISTORY: Noncontributory. REVIEW OF SYSTEMS: Notable for postmenopausal state, frequent headaches. The patient is not using CPAP at this time as she feels she has been cured. She has had problems with obesity. PHYSICAL EXAMINATION: VITAL SIGNS: Blood pressure 145/72, pulse 93, respirations 16, afebrile. GENERAL: Obese female. LUNGS: Diminished breath sounds. Few rales. HEART: Regular rhythm and rate. Normal S1, S2 with no murmur, rub, or gallop. ABDOMEN: Soft and nontender. EXTREMITIES: No edema LABORATORY DATA: Urinalysis with no active sediment. White count 12.2, hemoglobin 13.7. Sodium 136, potassium 4.5, bicarb 30, BUN 16, and creatinine 0.9. Troponin is 0. TSH is 2.7. Chest x-ray reveals pulmonary venous congestion. IMPRESSION: 1. Acute diastolic congestive heart failure. 2. Hypertensive heart disease. 3. History of asymptomatic heart block. 4. Type 2 diabetes mellitus. PLAN: 1. Diuresis. 2. Obtain natriuretic peptide assay and trend results in conjunction with clinical parameters. 3. DVT prophylaxis. 4. Urine tox screen. 5. Optimize antihypertensive regimen. 6. Echocardiogram reviewed; EF 45-50% DC home Vidal Bower Omar Syed MD June 15, 2018 09:41
[2018-06-15] MEDS ORDERED: ABILIFY5 MG ORAL (09:47)
[2018-06-15] MEDS ORDERED: Benztropine Mesylate ORAL (09:47)
[2018-06-15] MEDS ORDERED: FUROSEMIDE20 M1 ORAL (09:47)
--- NOTE | 2018-06-15 11:01 | Cardiology Report ---
APPROVED REPORT EXAM: Two-dimensional and M-mode echocardiogram with Doppler and color Doppler. INDICATION Congestive Heart Failure M-Mode DIMENSIONS IVSd1.1 (0.7-1.1cm)Left Atrium (MM)3.0 (1.6-4.0cm) LVDd3.5 (3.5-5.6cm)Aortic Root3.0 (2.0-3.7cm) PWd1.1 (0.7-1.1cm)Aortic Cusp Exc.1.7 (1.5-2.0cm) IVSs0.9 cm LVDs2.7 (2.5-4.0cm) PWs1.4 cm Other Information Technically limited study due to body habitus. Technically difficult study Normal left ventricular chamber size, systolic function and wall motion to extent visualized. Study quality precludes accurate assessment of regional wall motion. Left ventricular ejection fraction estimated to be 50-55%. Mild left ventricular hypertrophy by 2-D. Anterior Echo-free space, may be due to pericardial fat or effusion. All other cardiac chamber sizes are within normal limits. Aortic valve calcification with normal cusp excursion . Mildly thickened mitral valve leaflets with normal excursion. Mild mitral annulus and aortic root calcification. Pulmonic valve not well visualized. IVC at 2.1cm without physiologic collapse suggestive of increased RA pressure. A color flow and spectral Doppler study was performed and revealed: No aortic insufficiency . Mitral diastolic velocities suggest reduced left ventricular relaxation c/w mild LV diastolic dysfunction (Grade I ) Mild mitral regurgitation. Mild tricuspid regurgitation. Tricuspid systolic velocities suggests peak right ventricular systolic pressure of 15 mmHg this however is an under estimation
--- NOTE | 2018-06-15 11:11 | Cardiology Report ---
APPROVED REPORT EKG Measurement Heart [id number] Normal sinus rhythm Normal ECG
[2018-06-15 12:00] VITALS: BP 120/70
--- NOTE | 2018-06-15 13:41 | NUR ---
CASE MANAGEMENT:REVIEW 62 YR OLD FEMALE PRESENTED TO ER CC: WEAKNESS AND NOT FEELING WELL X3 WEEKS SI:ACUTE CHF 98.7 100 16 159/84 92% ON RA WBC+12.2 IS: 1L NS BOLUS IV LASIX CHEST XRAY : TO MED/SURG 3 EAST IS: IV LASIX QD
[2018-06-15 15:41] VITALS: BP 118/78
--- NOTE | 2018-06-15 17:40 | NUR ---
NURSE NOTES: DISCHAARGED HOME VIA TAXICAB IN STABLE CONDITION. DC INSTRUCTIONS AND MEDS GIVEN.
[2018-06-15] MEDS ORDERED: Benztropine 1mg tab ORAL SCH ×2 (21:00)
--- NOTE | 2018-06-16 03:15 | Progress Note ---
DATE: 06/15/2018 CARDIOLOGY PROGRESS NOTE SUBJECTIVE: The patient had repeat diuretic therapy yesterday. Negative fluid balance is noted of approximately 1370 mL. She has no shortness of breath. OBJECTIVE: VITAL SIGNS: Blood pressure 120/70, pulse 80, respirations 21, and afebrile. Natriuretic peptide is 40. LUNGS: Clear. CARDIAC: Regular. Normal S1, S2 with no murmur. ABDOMEN: Soft. EXTREMITIES: No edema. DIAGNOSTIC DATA: Echocardiogram revealed normal ejection fraction. Urine tox screen is negative. IMPRESSION: 1. Acute diastolic congestive heart failure, resolved. No signs of structural heart disease. 2. Hypertension, controlled. 3. History of asymptomatic AV block with no recurrence at this time. PLAN: 1. Stable for outpatient followup. 2. No need for chronic diuretic therapy. 3. Salt restriction. 4. An outpatient blood pressure monitoring is recommended with titration of antihypertensive medications based on findings. Giovani Skinner M.D. DR: ZACH JOB#: [id number] CC:
--- NOTE | 2018-06-16 08:30 | Discharge Summary ---
Discharge Summary Discharge Summary _ DATE OF ADMISSION: 06/14/2018 DATE OF DISCHARGE: DISCHARGED BY: Dr. Khan REASON FOR ADMISSION: 59 years old female with past medical history of hypertension, type 2 diabetes mellitus, asthma, sleep apnea, psychiatric disorder, presented to emergency room complaining of feeling sick with shortness of breath and generalized weakness. Patient upon evaluation was found to have signs of congestive heart failure that required hospitalization. Patient was hospitalized in this facility with chest pain prior in 2016. At that time patient was on telemetry floor and had an episode of asymptomatic second-degree AV block type I/ Wenckebach. No pacemaker was felt to be indicated at that time. Patient also had myocardial perfusion scan at that time, that revealed normal ejection fraction and no evidence of flow-limiting coronary artery disease. Patient admitted to monitored floor for further management. CONSULTANTS: polisher hand [facility] COURSE: Patient admitted to telemetry floor. Patient started on IV diuresis with loop diuretic/Lasix. Volumes and cardiorenal parameters were closely monitored. [employer] closely followed. Echocardiogram revealed ejection fraction of 50 to 55% with no evidence of wall motion abnormality and mild left ventricular hypertrophy. Mild mitral regurgitation. Right ventricular systolic pressure of 15. Chest x-ray on admission demonstrated congestive heart failure. Troponin was negative. EKG revealed normal sinus rhythm , no evidence of block. TSH within normal limits. Urine toxicology screen was negative. Blood pressure was managed with angiotensin receptor bryn and remained stable. DVT prophylaxis provided. Blood sugar was managed with metformin , and sliding scale of insulin was on board as needed. Supplemental oxygen and pulmonary toilet were on standby as needed. Pulse oximetry was stable on room air. No evidence of asthma exacerbation. DVT prophylaxis provided. Patient clinically stabilized. Acute congestive heart failure resolved. No signs of structural heart disease. Hypertension was controlled. No recurrence of AV block at this time. Per polisher hand, no need for chronic diuretic therapy. [employer]ant recommended to monitor blood pressure closely as outpatient and titrate antihypertensive regimen based on findings. Pulse oximetry stable on room air. No chest pain or shortness of breath. Patient was stable for discharge home. Due to rapid and unexpected improvement in patient condition, patient was discharged in 1 day. FINAL DIAGNOSES: Acute diastolic congestive heart failure -resolved Hypertensive heart disease History of asymptomatic heart block-no recurrence Type 2 diabetes mellitus DISCHARGE MEDICATIONS: See Medication Reconciliation list. DISCHARGE INSTRUCTIONS: Patient was discharged home . Follow up with primary care provider in one week. I have been assigned to dictate discharge summary for this account. I was not involved in the patient's management. Leslye Quevedo NP June 16, 2018 08:30
== END 2018-06-15 17:35 | disposition home or self-care (01) | DRG 291 ==
LOC: EMR 11:10 → 2E 14:16 → EDBEDREQ 16:22 → 3E 23:18
DX: I11.0 Hypertensive heart disease with heart failure (principal); I50.31 Acute diastolic (congestive) heart failure; E11.9 Type 2 diabetes mellitus without complications; J45.909 Unspecified asthma, uncomplicated; I45.9 Conduction disorder, unspecified; G47.30 Sleep apnea, unspecified; I34.0 Nonrheumatic mitral (valve) insufficiency
CPT/HCPCS: 36415; 71045; 80053; 80307; 81003; 82550; 82553; 82962; 83880; 84439; 84443; 84481; 84484; 85025; 93005; 93306; 96361; 96374; 99285; J1815

== ENCOUNTER 2018-06-18 10:34 | Emergency (ER) | payer SELFPAY ==
[~2018-06-18] VITALS: Ht 157.5 cm; Wt 98.0 kg
[~2018-06-18 10:34] MED LIST changes: +ABILIFY5 MG ORAL; +Benztropine Mesylate ORAL; +FUROSEMIDE20 M1 ORAL
--- NOTE | 2018-06-18 10:47 | NUR ---
ED Nurse Note: PT WALKED IN TO ER TODAY FROM HOME. AOX4. PT C/O SOB AND GENERALIZED BODY ACHE, PAIN 9/10 X 2 MONTHS AGO. PT WAS DISCHARGED FROM C X 4 DAYS AGO. PT STATES SHE WASN'T FEELING BETTER BUT HAD TO LEAVE TO TAKE CARE OF HER DOG. PT RETURNS TODAY C/O SAME SYMPTOMS. AT BEDSIDE, RR24 @ 96% ON RA. NO SIGNS OF RESPIRATORY DISTRESS, RETRACTIONS, OR ACCESSORY MUSCLE USE NOTED. PT ABLE TO SPEAK IN FULL SENTENCES.
[2018-06-18 10:49] VITALS: BP 143/89
--- NOTE | 2018-06-18 11:23 | NUR ---
ED Nurse Note: XRAY AT BEDSIDE.
[2018-06-18 11:31] LABS: BASOPHILS % (AUTO) 0.8 % (0.0-2.0); EOSINOPHILS % (AUTO) 5.3 % (0.0-3.0); HEMATOCRIT 42.5 % (37.0-47.0); HEMOGLOBIN 13.6 G/DL (12.0-16.0); LYMPHOCYTES % (AUTO) 14.9 % (20.0-45.0); MEAN CORPUSCULAR VOLUME 84 FL (80-99); MONOCYTES % (AUTO) 7.8 % (1.0-10.0); NEUTROPHILS % (AUTO) 71.2 % (45.0-75.0); PLATELET COUNT 414 K/UL (150-450); RED BLOOD COUNT 5.09 M/UL (4.20-5.40); WHITE BLOOD COUNT 12.1 K/UL (4.8-10.8)
[2018-06-18 11:43] LABS: ANION GAP 6 mmol/L (5-15); BLOOD UREA NITROGEN 20 mg/dL (7-18); CALCIUM 9.6 MG/DL (8.5-10.1); CARBON DIOXIDE 30 MMOL/L (21-32); CHLORIDE 99 MMOL/L (98-107); CREATININE 0.8 MG/DL (0.55-1.30); POTASSIUM 4.2 MMOL/L (3.5-5.1); SODIUM 135 MMOL/L (136-145)
--- NOTE | 2018-06-18 11:50 | NUR ---
ED Nurse Note: ROOM ASSIGNED BUT WAITING FOR DR DENT TO CALL ADMITTING PHYSICIAN.
[2018-06-18 11:55] LABS: APPEARANCE,URINE CLEAR; BILIRUBIN, URINE NEGATIVE (NEGATIVE); COLOR,URINE PALE YELLOW; GLUCOSE, URINE (UA) NEGATIVE (NEGATIVE); KETONES,URINE NEGATIVE (NEGATIVE); LEUKOCYTE ESTERASE ,URINE NEGATIVE (NEGATIVE); NITRITE,URINE NEGATIVE (NEGATIVE); PH,URINE 7 (4.5-8.0); PROTEIN,URINE 1+ (NEGATIVE); UROBILINOGEN,URINE NORMAL MG/DL (0.0-1.0)
[2018-06-18 11:58] LABS: ALANINE AMINOTRANSFERASE 36 U/L (12-78); ALBUMIN 3.3 G/DL (3.4-5.0); ALBUMIN/GLOBULIN RATIO 0.8 (1.0-2.7); ALKALINE PHOSPHATASE 109 U/L (46-116); ASPARTATE AMINO TRANSFERASE 22 U/L (15-37); BILIRUBIN,TOTAL 0.3 MG/DL (0.2-1.0); CREATINE KINASE 133 U/L (26-308)
--- NOTE | 2018-06-18 12:04 | Diagnostic Imaging Report ---
Indication: Dyspnea Comparison: 06/14/2018 A single view chest radiograph was obtained. Findings: Mild pulmonary vascular congestion is present. Cardiomegaly appears relatively stable. IMPRESSION: Mild pulmonary vascular congestion
--- NOTE | 2018-06-18 12:27 | Emergency Room Report ---
History of Present Illness General Chief Complaint: Dyspnea/Respdistress Source: Patient Present Illness HPI Patient was recently discharged from [facility]. She states that she has had ongoing shortness of breath for some time. He denies any new symptoms. She has no fever or chills. She denies nausea or vomiting. She denies cough or congestion. She denies chest pain. She states she is just making sure everything is okay. She has no other complaints. Allergies: Coded Allergies: NO KNOWN ALLERGIES (Unverified Allergy, Unknown, 02/18/14) Patient History Past Medical History: see triage record, DM, HTN, UT, CAD, CHF, psych hx, other - LINDSAY Social History: Denies: smoking, alcohol use, drug use Now: No Reviewed Nursing Documentation: PMH: Agreed; PSxH: Agreed Nursing Documentation-PMH Past Medical History: No History, Except For Hx Cardiac Problems: Yes - CHF Hx Hypertension: Yes Hx Asthma: Yes Hx COPD: No - Sleep Apnea Hx Diabetes: Yes Hx Cancer: No Hx Gastrointestinal Problems: No Hx Neurological Problems: No Hx Headaches: Yes Hx Weakness: Yes Hx Fatigue: Yes Review of Systems All Other Systems: negative except mentioned in HPI Physical Exam Vital Signs Date Time Temp Pulse Resp B/P (MAP) Pulse Ox O2 Delivery O2 Flow Rate FiO2 06/18/18 10:36 98.1 99 21 92 Room Air 06/18/18 10:49 143/89 Sp02 EP Interpretation: reviewed, normal General Appearance: no apparent distress, alert, GCS 15, non-toxic Head: normocephalic, atraumatic Eyes: bilateral eye normal inspection, bilateral eye PERRL ENT: hearing grossly normal, normal pharynx, no angioedema, normal voice Neck: full range of motion, supple/symm/no masses Respiratory: chest non-tender, lungs clear, normal breath sounds, no respiratory distress, no retraction, no accessory muscle use, speaking full sentences Cardiovascular #1: regular rate, rhythm, no edema Gastrointestinal: normal bowel sounds, non tender, soft, non-distended, no guarding, no rebound Rectal: deferred Musculoskeletal: back normal, gait/station normal, normal range of motion, non- tender Neurologic: alert, oriented x3, responsive, motor strength/tone normal, sensory intact, speech normal Psychiatric: judgement/insight normal, memory normal, mood/affect normal, no suicidal/homicidal ideation Skin: normal color, no rash, warm/dry, well hydrated Medical Decision Making Diagnostic Impression: Primary Impression: Shortness of breath ER Course The patient has recently been extensively worked up for her shortness of breath. I considered PE, PTX, acute coronary syndrome, aortic dissection, pneumonia which is unlikely given hx, CE, CXR. Low risk PERC and Wells. Negative work-up to include Cardiac enzymes, CXR, EKG. Given history and PE I do not feel that this patient needs further evaluation at this time. The patient was instructed to follow-up closely with their PCP and close return precautions were given. Laboratory Tests Test 06/18/18 11:12 06/18/18 11:34 White Blood Count 12.1 K/UL (4.8-10.8) H Red Blood Count 5.09 M/UL (4.20-5.40) Hemoglobin 13.6 G/DL (12.0-16.0) Hematocrit 42.5 % (37.0-47.0) Mean Corpuscular Volume 84 FL (80-99) Mean Corpuscular Hemoglobin 26.7 PG (27.0-31.0) L Mean Corpuscular Hemoglobin Concent 32.0 G/DL (32.0-36.0) Red Cell Distribution Width 13.0 % (11.6-14.8) Platelet Count 414 K/UL (150-450) Mean Platelet Volume 6.6 FL (6.5-10.1) Neutrophils (%) (Auto) 71.2 % (45.0-75.0) Lymphocytes (%) (Auto) 14.9 % (20.0-45.0) L Monocytes (%) (Auto) 7.8 % (1.0-10.0) Eosinophils (%) (Auto) 5.3 % (0.0-3.0) H Basophils (%) (Auto) 0.8 % (0.0-2.0) Sodium Level 135 MMOL/L (136-145) L Potassium Level 4.2 MMOL/L (3.5-5.1) Chloride Level 99 MMOL/L (98-107) Carbon Dioxide Level 30 MMOL/L (21-32) Anion Gap 6 mmol/L (5-15) Blood Urea Nitrogen 20 mg/dL (7-18) H Creatinine 0.8 MG/DL (0.55-1.30) Estimate Glomerular Filtration Rate > 60 mL/min (>60) Glucose Level 131 MG/DL (74-106) H Calcium Level 9.6 MG/DL (8.5-10.1) Total Bilirubin 0.3 MG/DL (0.2-1.0) Aspartate Amino Transferase (AST) 22 U/L (15-37) Alanine Aminotransferase (ALT) 36 U/L (12-78) Alkaline Phosphatase 109 U/L (46-116) Total Creatine Kinase 133 U/L (26-308) Creatine Kinase MB 2.0 NG/ML (0.0-3.6) Creatine Kinase MB Relative Index 1.5 Troponin I 0.000 ng/mL (0.000-0.056) Pro-B-Type Natriuretic Peptide 35 pg/mL (0-125) Total Protein 7.6 G/DL (6.4-8.2) Albumin 3.3 G/DL (3.4-5.0) L Globulin 4.3 g/dL Albumin/Globulin Ratio 0.8 (1.0-2.7) L Urine Color Pale yellow Urine Appearance Clear Urine pH 7 (4.5-8.0) Urine Specific [place] 1.010 (1.005-1.035) Urine Protein 1+ (NEGATIVE) H Urine Glucose (UA) Negative (NEGATIVE) Urine Ketones Negative (NEGATIVE) Urine Blood Negative (NEGATIVE) Urine Nitrite Negative (NEGATIVE) Urine Bilirubin Negative (NEGATIVE) Urine Urobilinogen Normal MG/DL (0.0-1.0) Urine Leukocyte Esterase Negative (NEGATIVE) Urine RBC 0 /HPF (0 - 2) Urine WBC 0 /HPF (0 - 2) Urine Squamous Epithelial Cells Occasional /LPF Urine Bacteria None /HPF (NONE) EKG Diagnostic Results Rate: normal Rhythm: NSR ST Segments: no acute changes Rhythm Strip Diag. Results EP Interpretation: yes Rate: 90's Rhythm: NSR, no PVC's, no ectopy Chest X-Ray Diagnostic Results Chest X-Ray Diagnostic Results : Chest X-Ray Ordered: Yes # of Views/Limited/Complete: 1 View Indication: Shortness of Breath EP Interpretation: No Interpretation: other - Pulmonary congestion. Stable cardiomegaly. Last Vital Signs Date Time Temp Pulse Resp B/P (MAP) Pulse Ox O2 Delivery O2 Flow Rate FiO2 06/18/18 10:49 95 24 Room Air 06/18/18 10:49 98.2 143/89 96 Status: improved Disposition: HOME, SELF-CARE Condition: Improved Referrals: [facility],REFERRING (PCP) Nidia Arnett DO June 18, 2018 12:27
--- NOTE | 2018-06-18 12:39 | NUR ---
ED Nurse Note: PT LAYING PEACEFULLY IN BED IN NAD. AOX4. DISCHARGE PAPERWORK EXPLAINED TO PT. PT VERBALIZES UNDERSTANDING AND ALL QUESTIONS ANSWERED. DISCHARGE PAPERWORK GIVEN TO PT, IV AND ID WRISTBAND REMOVED. PT WALKED OUT OF ER WITH STEADY GAIT AND ALL BELONGINGS.
[2018-06-18 12:40] VITALS: BP 136/84
[2018-10-09] MEDS ORDERED: FUROSEMIDE20 M1 ORAL (17:03)
== END 2018-06-18 12:41 | disposition home or self-care (01) ==
LOC: EMR 11:13 → CANBEDREQ 12:41
DX: R06.02 Shortness of breath (principal); I11.0 Hypertensive heart disease with heart failure; I50.9 Heart failure, unspecified; E11.9 Type 2 diabetes mellitus without complications; G47.33 Obstructive sleep apnea (adult) (pediatric); I25.2 Old myocardial infarction; I51.7 Cardiomegaly
CPT/HCPCS: 36415; 71045; 80053; 81003; 82550; 82553; 83880; 84484; 85025; 87081; 93005; 99284

== ENCOUNTER 2018-08-13 11:31 | Emergency (ER) | payer SELFPAY ==
[~2018-08-13] VITALS: Ht 157.5 cm; Wt 98.0 kg
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
[2018-08-13 11:41] VITALS: BP 136/68
--- NOTE | 2018-08-13 12:05 | NUR ---
ED Nurse Note: PT'S FIANCE AT BEDSIDE WHO STATES PT HAS HX OF BIPOLAR DISORDER BUT PT HAS NOT BEEN COMPLIANT WITH MEDICATIONS.
--- NOTE | 2018-08-13 12:30 | NUR ---
ED Nurse Note: XRAY AT BEDSIDE.
[2018-08-13 12:31] LABS: BASOPHILS % (AUTO) 0.8 % (0.0-2.0); EOSINOPHILS % (AUTO) 4.6 % (0.0-3.0); HEMOGLOBIN 13.1 G/DL (12.0-16.0); LYMPHOCYTES % (AUTO) 14.8 % (20.0-45.0); MEAN CORPUSCULAR VOLUME 86 FL (80-99); MONOCYTES % (AUTO) 7.3 % (1.0-10.0); NEUTROPHILS % (AUTO) 72.5 % (45.0-75.0); PLATELET COUNT 474 K/UL (150-450); RED BLOOD COUNT 4.87 M/UL (4.20-5.40); RED CELL DISTRIBUTION WIDTH 12.9 % (11.6-14.8); WHITE BLOOD COUNT 12.9 K/UL (4.8-10.8)
[2018-08-13 12:37] LABS: ANION GAP 6 mmol/L (5-15); BLOOD UREA NITROGEN 22 mg/dL (7-18); CALCIUM 9.5 MG/DL (8.5-10.1); CARBON DIOXIDE 31 MMOL/L (21-32); CHLORIDE 101 MMOL/L (98-107); CREATININE 0.9 MG/DL (0.55-1.30); POTASSIUM 4.6 MMOL/L (3.5-5.1); SODIUM 138 MMOL/L (136-145)
--- NOTE | 2018-08-13 12:40 | NUR ---
ED Nurse Note: pt was able to give urine sample and was sent to lab
[2018-08-13 12:44] LABS: ALANINE AMINOTRANSFERASE 25 U/L (12-78); ALBUMIN 3.1 G/DL (3.4-5.0); ALBUMIN/GLOBULIN RATIO 0.7 (1.0-2.7); ALKALINE PHOSPHATASE 146 U/L (46-116); ASPARTATE AMINO TRANSFERASE 18 U/L (15-37); BILIRUBIN,TOTAL 0.2 MG/DL (0.2-1.0)
[2018-08-13 12:52] VITALS: BP 143/93
--- NOTE | 2018-08-13 12:54 | Diagnostic Imaging Report ---
Indication: Dyspnea Comparison: 06/18/2018 A single view chest radiograph was obtained. Findings: Mild pulmonary vascular congestion suspected but this is unchanged. Heart is enlarged. IMPRESSION: Mild pulmonary vascular congestion
[2018-08-13 13:08] LABS: APPEARANCE,URINE CLEAR; BILIRUBIN, URINE NEGATIVE (NEGATIVE); COLOR,URINE PALE YELLOW; GLUCOSE, URINE (UA) 4+ (NEGATIVE); KETONES,URINE NEGATIVE (NEGATIVE); LEUKOCYTE ESTERASE ,URINE NEGATIVE (NEGATIVE); NITRITE,URINE NEGATIVE (NEGATIVE); PH,URINE 7 (4.5-8.0); PROTEIN,URINE 1+ (NEGATIVE); UROBILINOGEN,URINE NORMAL MG/DL (0.0-1.0)
[2018-08-13] MEDS ORDERED: UNOBMED (13:53)
[2018-08-13 14:27] VITALS: BP 134/86
--- NOTE | 2018-08-13 14:28 | NUR ---
ED Nurse Note: PT LAYING PEACEFULLY IN BED IN NAD. AOX4. DISCHARGE PAPERWORK EXPLAINED TO PT. PT VERBALIZES UNDERSTANDING AND ALL QUESTIONS ANSWERED. DISCHARGE PAPERWORK GIVEN TO PT, IV AND ID WRISTBAND REMOVED. PT WALKED OUT OF ER WITH STEADY GAIT WITH ALL BELONGINGS ACCOMPANIED BY SIGNIFICANT OTHER.
--- NOTE | 2018-08-14 07:31 | Emergency Room Report ---
History of Present Illness General Chief Complaint: General Complaint Source: Patient, Medical Record Present Illness HPI 62-year-old female presents ED for evaluation. Brought in by EMS from home. States she has been feeling weak and has no energy. Believes that she has been poisoned and "in the food, and the water". Denies any pain. Denies any nausea or vomiting. Denies diarrhea. Denies fevers or chills. Does have history of bipolar. Denies SI or HI. Denies hearing voices. No other aggravating relieving factors. Denies any other associated symptoms Allergies: Coded Allergies: NO KNOWN ALLERGIES (Unverified Allergy, Unknown, 02/18/14) Patient History Past Medical History: psych hx Past Surgical History: none Pertinent Family History: none Social History: Denies: smoking, alcohol use, drug use Now: No Immunizations: UTD Reviewed Nursing Documentation: PMH: Agreed; PSxH: Agreed Nursing Documentation-PMH Past Medical History: No History, Except For Hx Hypertension: Yes Hx Asthma: Yes Hx COPD: No - Sleep Apnea Hx Diabetes: Yes Hx Cancer: No Hx Gastrointestinal Problems: No History Of Psychiatric Problem: Yes - Bipolar Hx Neurological Problems: No Hx Headaches: Yes Hx Weakness: Yes Hx Fatigue: Yes Review of Systems All Other Systems: negative except mentioned in HPI Physical Exam Vital Signs Date Time Temp Pulse Resp B/P (MAP) Pulse Ox O2 Delivery O2 Flow Rate FiO2 08/13/18 11:28 97.9 82 18 154/84 (107) 98 Room Air Sp02 EP Interpretation: reviewed, normal General Appearance: no apparent distress, alert, GCS 15, non-toxic, obese Head: normocephalic, atraumatic Eyes: bilateral eye normal inspection, bilateral eye PERRL ENT: hearing grossly normal, normal pharynx, no angioedema, normal voice Neck: full range of motion, supple/symm/no masses Respiratory: chest non-tender, lungs clear, normal breath sounds, speaking full sentences Cardiovascular #1: regular rate, rhythm, no edema Cardiovascular #2: 2+ carotid (R), 2+ carotid (L), 2+ radial (R), 2+ radial (L) , 2+ dorsalis pedis (R), 2+ dorsalis pedis (L) Gastrointestinal: normal bowel sounds, non tender, soft, non-distended, no guarding, no rebound Rectal: deferred Genitourinary: normal inspection, no CVA tenderness Musculoskeletal: back normal, gait/station normal, normal range of motion, non- tender Neurologic: alert, oriented x3, responsive, motor strength/tone normal, sensory intact, speech normal Psychiatric: no suicidal/homicidal ideation, no delusions, depressed affect, anxious Reflexes: 3+ bicep (R), 3+ bicep (L), 3+ tricep (R), 3+ tricep (L), 3+ knee (R) , 3+ knee (L) Lymphatic: no adenopathy Medical Decision Making Diagnostic Impression: Primary Impression: Encounter for generalized patient complaints Additional Impression: Anxiety ER Course Hospital Course 62-year-old F presents ED complaining of generalized weakness, suspected to be poisoned Differential diagnoses include: UTI, dehydration, anxiety Clinical course Patient placed on stretcher. on air sampling and monitoring. After initial history and physical I ordered labs, UA, IVFs labs reviewed- no leukocytosis, hemoglobin/hematocrit stable, electrolytes ok, UA negative Upon reassessment patient is observed feeling better. Reviewed EMR. Patient has been here multiple times for similar vague related complaints. Seen by myself as well. Has had multiple work-ups all of which have been negative. I suspect anxiety as a component of her symptoms today. No SI or HI. No danger to self or others. recommend close follow-up with psychiatry as outpatient I. I feel this is a highly complex case requiring extensive working including EKG/Rhythm strip, Xray/CT/US, Blood/urine lab work, repeat exams while in ED, and administration of strong opiates/narcotics for pain control, admission to hospital or close patient follow up. Diagnosis - anxiety Stable and discharged to home. Followup with PMD/psych. Return to ED if symptoms recur or worse Labs Test 08/13/18 12:00 08/13/18 12:10 Urine Color Pale yellow Urine Appearance Clear Urine pH 7 (4.5-8.0) Urine Specific [place] 1.010 (1.005-1.035) Urine Protein 1+ (NEGATIVE) Urine Glucose (UA) 4+ (NEGATIVE) Urine Ketones Negative (NEGATIVE) Urine Blood Negative (NEGATIVE) Urine Nitrite Negative (NEGATIVE) Urine Bilirubin Negative (NEGATIVE) Urine Urobilinogen Normal MG/DL (0.0-1.0) Urine Leukocyte Esterase Negative (NEGATIVE) Urine RBC 0-2 /HPF (0 - 2) Urine WBC 0-2 /HPF (0 - 2) Urine Squamous Epithelial Cells Few /LPF (NONE/OCC) Urine Bacteria Occasional /HPF (NONE) White Blood Count 12.9 K/UL (4.8-10.8) Red Blood Count 4.87 M/UL (4.20-5.40) Hemoglobin 13.1 G/DL (12.0-16.0) Hematocrit 42.0 % (37.0-47.0) Mean Corpuscular Volume 86 FL (80-99) Mean Corpuscular Hemoglobin 26.8 PG (27.0-31.0) Mean Corpuscular Hemoglobin Concent 31.2 G/DL (32.0-36.0) Red Cell Distribution Width 12.9 % (11.6-14.8) Platelet Count 474 K/UL (150-450) Mean Platelet Volume 6.5 FL (6.5-10.1) Neutrophils (%) (Auto) 72.5 % (45.0-75.0) Lymphocytes (%) (Auto) 14.8 % (20.0-45.0) Monocytes (%) (Auto) 7.3 % (1.0-10.0) Eosinophils (%) (Auto) 4.6 % (0.0-3.0) Basophils (%) (Auto) 0.8 % (0.0-2.0) Sodium Level 138 MMOL/L (136-145) Potassium Level 4.6 MMOL/L (3.5-5.1) Chloride Level 101 MMOL/L (98-107) Carbon Dioxide Level 31 MMOL/L (21-32) Anion Gap 6 mmol/L (5-15) Blood Urea Nitrogen 22 mg/dL (7-18) Creatinine 0.9 MG/DL (0.55-1.30) Estimat Glomerular Filtration Rate > 60 mL/min (>60) Glucose Level 284 MG/DL (74-106) Calcium Level 9.5 MG/DL (8.5-10.1) Total Bilirubin 0.2 MG/DL (0.2-1.0) Aspartate Amino Transf (AST/SGOT) 18 U/L (15-37) Alanine Aminotransferase (ALT/SGPT) 25 U/L (12-78) Alkaline Phosphatase 146 U/L (46-116) Total Protein 7.8 G/DL (6.4-8.2) Albumin 3.1 G/DL (3.4-5.0) Globulin 4.7 g/dL Albumin/Globulin Ratio 0.7 (1.0-2.7) Salicylates Level 1.7 ug/mL (2.8-20) Acetaminophen Level < 2 MCG/ML (10-30) Serum Alcohol < 3 mg/dL Last Vital Signs Date Time Temp Pulse Resp B/P (MAP) Pulse Ox O2 Delivery O2 Flow Rate FiO2 08/13/18 14:27 98.3 84 16 134/86 100 Room Air Status: improved Disposition: HOME, SELF-CARE Condition: Stable Referrals: [facility] + [facility] Psych ER - Peds ER - Patient Instructions: Panic Attacks, [id number] Graham Bardales MD Aug 14, 2018 07:31
== END 2018-08-13 14:30 | disposition home or self-care (01) ==
LOC: EDBD 11:31 → EMR 12:25
DX: F41.9 Anxiety disorder, unspecified (principal); Z71.1 Person with feared health complaint in whom no diagnosis is made; R53.1 Weakness; I10 Essential (primary) hypertension; J45.909 Unspecified asthma, uncomplicated; E11.9 Type 2 diabetes mellitus without complications; R53.83 Other fatigue
CPT/HCPCS: 36415; 71045; 80053; 81003; 85025; 99284; G0480; 80329

== ENCOUNTER 2018-08-21 18:06 | Emergency (ER) | payer SELFPAY ==
[~2018-08-21] VITALS: Ht 157.5 cm; Wt 98.0 kg
[~2018-08-21 18:06] MED LIST changes: +UNOBMED
[2018-08-21 18:30] VITALS: BP 136/86
--- NOTE | 2018-08-21 18:30 | NUR ---
ED Nurse Note: pt walked in due to worsening body pain due to arthiritis. pt denies trauma. seen by ermd. will continue to monitor.
--- NOTE | 2018-08-21 18:51 | Emergency Room Report ---
History of Present Illness General Chief Complaint: Pain Source: Medical Record Present Illness HPI 62-year-old female history of anxiety presents with body aches x3 hours, she denies any aggravating or alleviating factors, she states it was similar to when she presented here last time she states that she thinks someone is poisoning her she denies any SI HI, patient states that she generally gets labs at [place], some fluids and feels better, she denies any fevers chills chest pain, shortness of breath, no abdominal pain, patient states her total body aches are achy in nature. Denies any cough, congestion Allergies: Coded Allergies: NO KNOWN ALLERGIES (Unverified Allergy, Unknown, 02/18/14) Patient History Past Medical History: see triage record Reviewed Nursing Documentation: PMH: Agreed; PSxH: Agreed Nursing Documentation-PMH Past Medical History: No History, Except For Hx Hypertension: Yes - Osteoarthritis Hx Asthma: Yes Hx COPD: No - Sleep Apnea Hx Diabetes: Yes Hx Cancer: No Hx Gastrointestinal Problems: No Hx Neurological Problems: No Hx Headaches: Yes Hx Weakness: Yes Hx Fatigue: Yes Review of Systems Musculoskeletal: Reports: muscle pain All Other Systems: negative except mentioned in HPI Physical Exam Vital Signs Date Time Temp Pulse Resp B/P (MAP) Pulse Ox O2 Delivery O2 Flow Rate FiO2 08/21/18 18:20 98.2 97 16 136/86 (103) 94 Room Air Sp02 EP Interpretation: reviewed, normal General Appearance: well appearing, no apparent distress, alert Head: normocephalic, atraumatic Eyes: bilateral eye PERRL, bilateral eye EOMI ENT: uvula midline, moist mucus membranes Neck: supple, thyroid normal, supple/symm/no masses Respiratory: lungs clear, no respiratory distress, no retraction, no accessory muscle use Cardiovascular #1: normal peripheral pulses, regular rate, rhythm, no edema, no gallop, no murmur Gastrointestinal: non tender, soft, no guarding, no rebound Musculoskeletal: normal inspection Neurologic: alert, oriented x3 Psychiatric: mood/affect normal Skin: no rash, warm/dry Medical Decision Making Diagnostic Impression: Primary Impression: Viral syndrome Additional Impression: UTI (urinary tract infection) ER Course 62-year-old female with an elevated white blood cell count, with a lymphocyte predominance, most likely a viral syndrome, patient found to have UTI as well, patient feels better after fluid rehydration, will disposition patient home with return precautions, and a box will be given for the UTI, supportive care for the viral syndrome, Laboratory Tests Test 08/21/18 19:07 08/21/18 19:18 Urine Color Yellow Urine Appearance Clear Urine pH 6 (4.5-8.0) Urine Specific [place] 1.015 (1.005-1.035) Urine Protein 2+ (NEGATIVE) H Urine Glucose (UA) Negative (NEGATIVE) Urine Ketones Negative (NEGATIVE) Urine Blood Negative (NEGATIVE) Urine Nitrite Negative (NEGATIVE) Urine Bilirubin Negative (NEGATIVE) Urine Urobilinogen Normal MG/DL (0.0-1.0) Urine Leukocyte Esterase 1+ (NEGATIVE) H Urine RBC 0-2 /HPF (0 - 2) Urine WBC 2-4 /HPF (0 - 2) Urine Squamous Epithelial Cells Few /LPF (NONE/OCC) Urine Bacteria Few /HPF (NONE) White Blood Count 12.0 K/UL (4.8-10.8) H Red Blood Count 5.16 M/UL (4.20-5.40) Hemoglobin 13.6 G/DL (12.0-16.0) Hematocrit 43.2 % (37.0-47.0) Mean Corpuscular Volume 84 FL (80-99) Mean Corpuscular Hemoglobin 26.3 PG (27.0-31.0) L Mean Corpuscular Hemoglobin Concent 31.4 G/DL (32.0-36.0) L Red Cell Distribution Width 12.4 % (11.6-14.8) Platelet Count 428 K/UL (150-450) Mean Platelet Volume 6.8 FL (6.5-10.1) Neutrophils (%) (Auto) 73.3 % (45.0-75.0) Lymphocytes (%) (Auto) 15.0 % (20.0-45.0) L Monocytes (%) (Auto) 8.5 % (1.0-10.0) Eosinophils (%) (Auto) 2.1 % (0.0-3.0) Basophils (%) (Auto) 1.1 % (0.0-2.0) Sodium Level 137 MMOL/L (136-145) Potassium Level 3.9 MMOL/L (3.5-5.1) Chloride Level 100 MMOL/L (98-107) Carbon Dioxide Level 29 MMOL/L (21-32) Anion Gap 8 mmol/L (5-15) Blood Urea Nitrogen 17 mg/dL (7-18) Creatinine 0.9 MG/DL (0.55-1.30) Estimate Glomerular Filtration Rate > 60 mL/min (>60) Glucose Level 171 MG/DL (74-106) H Calcium Level 9.9 MG/DL (8.5-10.1) Total Bilirubin 0.4 MG/DL (0.2-1.0) Aspartate Amino Transferase (AST) 18 U/L (15-37) Alanine Aminotransferase (ALT) 23 U/L (12-78) Alkaline Phosphatase 138 U/L (46-116) H Total Protein 7.9 G/DL (6.4-8.2) Albumin 3.6 G/DL (3.4-5.0) Globulin 4.3 g/dL Albumin/Globulin Ratio 0.8 (1.0-2.7) L Lipase 180 U/L (73-393) Last Vital Signs Date Time Temp Pulse Resp B/P (MAP) Pulse Ox O2 Delivery O2 Flow Rate FiO2 08/21/18 18:20 98.2 97 16 136/86 (103) 94 Room Air Disposition: HOME, SELF-CARE Condition: Improved Scripts Cephalexin (Cephalexin) 250 Mg Capsule 250 MG ORAL EVERY 6 HOURS, #20 CAP Prov: Andreas Barber M.D. 08/21/18 Referrals: [facility] Patient Instructions: Urinary Tract Infection, [id number], Viral Respiratory Infection, [id number] Additional Instructions: The patient was provided with discharge instructions, notified to follow-up with a primary care doctor and or specialist in the next 24-48 hours, and to return to the ED if they have worsening of their symptoms. Please note that this report is being documented using [employer] technology. This can lead to erroneous entry secondary to incorrect interpretation by the dictating instrument. Andreas Barber M.D. Aug 21, 2018 18:51
--- NOTE | 2018-08-21 19:15 | NUR ---
ED Nurse Note: RECIEVED REPORT FROM AM NURSE TO RESUME CARE, PT IS CURRENTLY LYING IN BED,A WAKE, ALERT AND ORIENTED X 4, PT HAS IV LINE PLACED AND FLUIDS STARTED ORDERED, PT HERE FOR GEN PAIN AND STATES ITS HER ARTHRITIS, PT DENIES CP, NO SOB OR LABORED BREATHING, WILL RESUME CARE ORDERED AND CLOSELY MONITOR.
[2018-08-21 19:29] LABS: APPEARANCE,URINE CLEAR; BILIRUBIN, URINE NEGATIVE (NEGATIVE); GLUCOSE, URINE (UA) NEGATIVE (NEGATIVE); KETONES,URINE NEGATIVE (NEGATIVE); LEUKOCYTE ESTERASE ,URINE 1+ (NEGATIVE); NITRITE,URINE NEGATIVE (NEGATIVE); PH,URINE 6 (4.5-8.0); PROTEIN,URINE 2+ (NEGATIVE); UROBILINOGEN,URINE NORMAL MG/DL (0.0-1.0)
[2018-08-21 19:31] LABS: COLOR,URINE YELLOW
[2018-08-21 19:33] LABS: BASOPHILS % (AUTO) 1.1 % (0.0-2.0); EOSINOPHILS % (AUTO) 2.1 % (0.0-3.0); HEMATOCRIT 43.2 % (37.0-47.0); HEMOGLOBIN 13.6 G/DL (12.0-16.0); MEAN CORPUSCULAR VOLUME 84 FL (80-99); MONOCYTES % (AUTO) 8.5 % (1.0-10.0); NEUTROPHILS % (AUTO) 73.3 % (45.0-75.0); PLATELET COUNT 428 K/UL (150-450); RED BLOOD COUNT 5.16 M/UL (4.20-5.40); RED CELL DISTRIBUTION WIDTH 12.4 % (11.6-14.8)
[2018-08-21 19:40] LABS: ANION GAP 8 mmol/L (5-15); BLOOD UREA NITROGEN 17 mg/dL (7-18); CALCIUM 9.9 MG/DL (8.5-10.1); CARBON DIOXIDE 29 MMOL/L (21-32); CHLORIDE 100 MMOL/L (98-107); CREATININE 0.9 MG/DL (0.55-1.30); POTASSIUM 3.9 MMOL/L (3.5-5.1); SODIUM 137 MMOL/L (136-145)
[2018-08-21 19:45] LABS: ALANINE AMINOTRANSFERASE 23 U/L (12-78); ALBUMIN 3.6 G/DL (3.4-5.0); ALBUMIN/GLOBULIN RATIO 0.8 (1.0-2.7); ALKALINE PHOSPHATASE 138 U/L (46-116); ASPARTATE AMINO TRANSFERASE 18 U/L (15-37); BILIRUBIN,TOTAL 0.4 MG/DL (0.2-1.0)
[2018-08-21] MEDS ORDERED: CEPHALEXIN250 MG ORAL (20:58)
[2018-08-21 21:00] VITALS: BP 131/74
--- NOTE | 2018-08-21 21:00 | NUR ---
ED Nurse Note: Pt completed iv fluids, all test normal, ER DISCHARGE NOTE: Patient is cleared to be discharged per ERMD, pt is aox4, on room air, with stable vital signs. pt was given dc and prescription instructions, pt was able to verbalize understanding, pt id band and iv site removed without complications. pt is able to ambulate with steady gait. pt took all belongings.
[2018-08-21 21:20] VITALS: BP 131/74
== END 2018-08-21 21:20 | disposition home or self-care (01) ==
LOC: EMR 19:04
DX: B34.9 Viral infection, unspecified (principal); N39.0 Urinary tract infection, site not specified; F41.9 Anxiety disorder, unspecified; M19.90 Unspecified osteoarthritis, unspecified site; G47.30 Sleep apnea, unspecified; E11.9 Type 2 diabetes mellitus without complications
CPT/HCPCS: 36415; 80053; 81003; 83690; 85025; 96360; 99284

== ENCOUNTER 2018-09-17 15:17 | Emergency (ER) | payer SELFPAY ==
[~2018-09-17] VITALS: Ht 162.6 cm; Wt 98.0 kg
[~2018-09-17 15:17] MED LIST changes: +CEPHALEXIN250 MG ORAL
[2018-09-17] MEDS ORDERED: NAPROXEN250 MG ORAL (15:44)
--- NOTE | 2018-09-17 15:44 | Emergency Room Report ---
History of Present Illness General Chief Complaint: General Complaint Source: Patient Present Illness HPI 62-year-old female with mental illness presents with diffuse body aches times 1 day, patient states there are diffuse body aches, where her joints are, consistent with osteoarthritis, aggravated with movement alleviated with rest, severity is mild, patient states that she has been taking milk for the pain, she states some is been trying to poison her she denies any ingestion no suicidal or homicidal ideations, patient states she is here for a pill to feel better, she denies any chest pain shortness of breath, abdominal pain. She states there are people coming after her. Allergies: Coded Allergies: NO KNOWN ALLERGIES (Unverified Allergy, Unknown, 09/17/18) Patient History Past Medical History: see triage record Reviewed Nursing Documentation: PMH: Agreed; PSxH: Agreed Nursing Documentation-PMH Past Medical History: No History, Except For Hx Hypertension: Yes - Osteoarthritis Hx Asthma: Yes Hx COPD: No - Sleep Apnea Hx Diabetes: Yes Hx Cancer: No Hx Gastrointestinal Problems: No Hx Neurological Problems: No Hx Headaches: Yes Hx Weakness: Yes Hx Fatigue: Yes Review of Systems All Other Systems: negative except mentioned in HPI Physical Exam Vital Signs Date Time Temp Pulse Resp B/P (MAP) Pulse Ox O2 Delivery O2 Flow Rate FiO2 09/17/18 15:23 98.4 98 16 165/74 (104) 95 Room Air Sp02 EP Interpretation: reviewed, normal General Appearance: well appearing, no apparent distress, alert Head: normocephalic, atraumatic Eyes: bilateral eye PERRL, bilateral eye EOMI ENT: uvula midline, moist mucus membranes Neck: supple, thyroid normal, supple/symm/no masses Respiratory: lungs clear, no respiratory distress, no retraction, no accessory muscle use Cardiovascular #1: normal peripheral pulses, regular rate, rhythm, no edema, no gallop, no murmur Gastrointestinal: non tender, soft, no guarding, no rebound Musculoskeletal: normal inspection Neurologic: alert, oriented x3 Psychiatric: no suicidal/homicidal ideation, anxious Skin: no rash, warm/dry Medical Decision Making Diagnostic Impression: Primary Impression: Osteoarthritis Qualified Codes: M19.90 - Unspecified osteoarthritis, unspecified site ER Course 62-year-old female presents with paranoid delusions, however patient is not suicidal or homicidal, patient has not taken any ingestions, patient states she only wants something for her osteoarthritis, no indications for committing patient to a psychiatric facility, will provide patient with pain medication, disposition home with return precautions and follow-up with psychiatry Last Vital Signs Date Time Temp Pulse Resp B/P (MAP) Pulse Ox O2 Delivery O2 Flow Rate FiO2 09/17/18 15:23 98.4 98 16 165/74 (104) 95 Room Air Disposition: HOME, SELF-CARE Condition: Stable Scripts Naproxen* (NAPROSYN*) 250 Mg Tablet 250 MG ORAL BID PRN for For Pain, #20 TAB 0 Refills Prov: Andreas Barber MD 09/17/[address]: [facility]. [facility] Patient Instructions: Osteoarthritis Additional Instructions: The patient was provided with discharge instructions, notified to follow-up with a primary care doctor and or specialist in the next 24-48 hours, and to return to the ED if they have worsening of their symptoms. Please note that this report is being documented using [employer] technology. This can lead to erroneous entry secondary to incorrect interpretation by the dictating instrument. Andreas Barber MD Sep 17, 2018 15:44
[2018-09-17] MEDS ORDERED: Acetaminophen 500mg (ES) tab ORAL ONE (15:45)
[2018-09-17 16:00] VITALS: BP 165/74
[2018-09-17 16:05] VITALS: BP 165/74
--- NOTE | 2018-09-17 17:23 | NUR ---
ER DISCHARGE NOTE: Patient is cleared to be discharged per ERMD, pt is aox4, on room air, with stable vital signs. pt was given dc and prescription instructions, pt was able to verbalize understanding, pt id band removed without complications. pt is able to ambulate with steady gait. pt took all belongings.
== END 2018-09-17 16:05 | disposition home or self-care (01) ==
LOC: EMR 15:35
DX: M19.90 Unspecified osteoarthritis, unspecified site (principal); F22 Delusional disorders; I10 Essential (primary) hypertension; E11.9 Type 2 diabetes mellitus without complications; J45.909 Unspecified asthma, uncomplicated; G47.30 Sleep apnea, unspecified
CPT/HCPCS: 99282

== ENCOUNTER → 2018-10-09 | Emergency (ER) | payer SELFPAY ==
[~2018-10-09] VITALS: Ht 165.1 cm; Wt 81.6 kg
[~2018-10-09] MED LIST changes: +NAPROXEN250 MG ORAL
[2018-10-09 16:41] VITALS: BP 134/83
--- NOTE | 2018-10-09 16:45 | NUR ---
ED Nurse Note: Patient walk in to ER due to muscle cramping in BLE since yesterday. Alert and oriented x4, verbally responsive. No SOB. Breathing even and unlabored. Afebrile. VSS.
--- NOTE | 2018-10-09 17:03 | Emergency Room Report ---
History of Present Illness General Chief Complaint: Pain Source: Patient, Medical Record Present Illness HPI 62-year-old female history of psychiatric illness presents with bilateral lower externally cramping, patient states her legs have been cramping recently and swollen up a little bit, worsened with standing alleviated by lying down, no fever no chills no chest pain no shortness of breath no abdominal pain she endorses a slight ache mild severity patient presents for evaluation Allergies: Coded Allergies: NO KNOWN ALLERGIES (Unverified Allergy, Unknown, 09/17/18) Patient History Past Medical History: see triage record Reviewed Nursing Documentation: PMH: Agreed; PSxH: Agreed Nursing Documentation-PMH Past Medical History: No History, Except For Hx Cardiac Problems: Yes - Leukemia Hx Hypertension: Yes - Osteoarthritis Hx Pacemaker: No Hx Asthma: Yes Hx COPD: No - Sleep Apnea Hx Diabetes: Yes Hx Cancer: No Hx Gastrointestinal Problems: No Hx Dialysis: No History Of Psychiatric Problem: No Hx Neurological Problems: No Hx Cerebrovascular Accident: Yes Hx Seizures: Yes Hx Headaches: Yes Hx Weakness: Yes Hx Fatigue: Yes Review of Systems All Other Systems: negative except mentioned in HPI Physical Exam Vital Signs Date Time Temp Pulse Resp B/P (MAP) Pulse Ox O2 Delivery O2 Flow Rate FiO2 10/09/18 16:41 97.9 100 19 134/83 (100) 100 Room Air Sp02 EP Interpretation: reviewed, normal General Appearance: well appearing, no apparent distress, alert Head: normocephalic, atraumatic Eyes: bilateral eye PERRL, bilateral eye EOMI ENT: uvula midline, moist mucus membranes Neck: supple, thyroid normal, supple/symm/no masses Respiratory: lungs clear, no respiratory distress, no retraction, no accessory muscle use Cardiovascular #1: normal peripheral pulses, regular rate, rhythm, no gallop, no murmur, edema - 1+ pedal edema Gastrointestinal: non tender, soft, no guarding, no rebound Musculoskeletal: normal inspection Neurologic: alert, oriented x3 Psychiatric: mood/affect normal Skin: no rash, warm/dry Medical Decision Making Diagnostic Impression: Primary Impression: Pedal edema ER Course 62-year-old female presents with bilateral pedal edema appears chronic in nature , no evidence of cellulitis no infection, no tenderness to palpation will start patient on a small dose of Lasix counseled patient to follow-up with PCP Last Vital Signs Date Time Temp Pulse Resp B/P (MAP) Pulse Ox O2 Delivery O2 Flow Rate FiO2 10/09/18 16:41 97.9 100 19 134/83 (100) 100 Room Air Disposition: HOME, SELF-CARE Condition: Stable Scripts Furosemide* (LASIX*) 20 Mg Tablet 20 MG ORAL DAILY, #7 TAB Prov: Andreas Barber MD 10/09/18 Referrals: [facility]. [facility] Patient Instructions: Edema, [id number] Additional Instructions: The patient was provided with discharge instructions, notified to follow-up with a primary care doctor and or specialist in the next 24-48 hours, and to return to the ED if they have worsening of their symptoms. Please note that this report is being documented using [employer] technology. This can lead to erroneous entry secondary to incorrect interpretation by the dictating instrument. Andreas Barber MD Oct 09, 2018 17:03
[2018-10-09 17:11] VITALS: BP 134/83
--- NOTE | 2018-10-09 17:11 | NUR ---
ED Nurse Note: Pt cleared by ERMD for discharge. DC instructions/prescription was given and explained to pt and verbalized understanding of teachings. All medical devices such as ID band removed. Pt is AAO x4, ambulatory and left with all personal belongings.
== END | disposition home or self-care (01) ==
LOC: EMR 17:00
DX: R60.0 Localized edema (principal); Z86.73 Personal history of transient ischemic attack (TIA), and cerebral infarction without residual deficits; E11.9 Type 2 diabetes mellitus without complications; J45.909 Unspecified asthma, uncomplicated; M19.90 Unspecified osteoarthritis, unspecified site; Z85.6 Personal history of leukemia; Z86.59 Personal history of other mental and behavioral disorders
CPT/HCPCS: 99282

== ENCOUNTER 2018-10-16 12:00 | Emergency (ER) | payer SELFPAY ==
[~2018-10-16] VITALS: Ht 160 cm; Wt 98.0 kg
[2018-10-16] MEDS ORDERED: NKM (12:11)
--- NOTE | 2018-10-16 12:19 | NUR ---
ED Nurse Note: PT WALKED IN TO ER TODAY FROM HOME. AOX4. PT C/O FEELING WEAK AND DIZZY X "A MILLION YEARS AGO." PT DENIES NAUSEA, VOMITING. GAIT STEADY IN ER. PT SITTING PEACEFULLY IN BED IN NAD. CALM, COOPERATIVE AND TALKATIVE WITH STAFF.
[2018-10-16 12:22] VITALS: BP 142/76
--- NOTE | 2018-10-16 13:15 | Diagnostic Imaging Report ---
EXAM: XR Chest, 1 View CLINICAL HISTORY: DIZZY TECHNIQUE: Frontal view of the chest. COMPARISON: No relevant prior studies available. FINDINGS: Lungs: Accentuation of interstitial markings.. Pleural space: Unremarkable. No pneumothorax. Heart: Large cardiomediastinal silhouette. Mediastinum: See above. Bones/joints: No acute fracture. IMPRESSION: Accentuation of interstitial markings.. Could be from vascular continued ingestion or interstitial pneumonia.
--- NOTE | 2018-10-16 13:24 | NUR ---
ED Nurse Note: Received pt from LEILA Dodson. Pt complains of pain "all over the body" at "11/10", calm and cooperative. Vital signs stable. No sign of acute distress.
[2018-10-16 13:34] VITALS: BP 133/76
[2018-10-16 13:38] LABS: BASOPHILS % (AUTO) 0.9 % (0.0-2.0); EOSINOPHILS % (AUTO) 5.3 % (0.0-3.0); HEMATOCRIT 43.4 % (37.0-47.0); HEMOGLOBIN 13.6 G/DL (12.0-16.0); LYMPHOCYTES % (AUTO) 17.6 % (20.0-45.0); MEAN CORPUSCULAR VOLUME 82 FL (80-99); MONOCYTES % (AUTO) 9.6 % (1.0-10.0); NEUTROPHILS % (AUTO) 66.6 % (45.0-75.0); PLATELET COUNT 430 K/UL (150-450); RED BLOOD COUNT 5.28 M/UL (4.20-5.40); RED CELL DISTRIBUTION WIDTH 13.2 % (11.6-14.8); WHITE BLOOD COUNT 10.6 K/UL (4.8-10.8)
[2018-10-16 13:49] LABS: ANION GAP 9 mmol/L (5-15); BLOOD UREA NITROGEN 13 mg/dL (7-18); CALCIUM 9.3 MG/DL (8.5-10.1); CARBON DIOXIDE 29 MMOL/L (21-32); CHLORIDE 103 MMOL/L (98-107); POTASSIUM 3.8 MMOL/L (3.5-5.1); SODIUM 141 MMOL/L (136-145)
--- NOTE | 2018-10-16 13:56 | Emergency Room Report ---
History of Present Illness General Chief Complaint: General Complaint Source: Patient, Medical Record (Sherley Chase) Present Illness HPI 62 YO Female presents to the ED c/o generalized fatigue and vaguely " not feeling well". Pt. with Asthma/COPD,CHF, psych hx and hx of non-compliance. Pt. denies pain. Denies N/V/F/C. Reports has been having bilateral pedal edema, but it has improved with her own " natural treatment and coffee". Pt. reports she only took one pill from previous visit but it "made her worse, " so she self-D/C 'd. Denies cough, SOB or exacerbation of her COPD. Denies CP, Palpitations, LOC , AMS, dizziness, Changes in Vision, Sensation, paresthesias, or a sudden severe headache. (Sherley Chase) Allergies: Coded Allergies: NO KNOWN ALLERGIES (Unverified Allergy, Unknown, 09/17/18) Patient History Past Medical History: see triage record, DM, HTN, CHF, asthma, COPD, psych hx Past Surgical History: none Pertinent Family History: none Now: No Reviewed Nursing Documentation: PMH: Agreed; PSxH: Agreed (Sherley Chase) Nursing Documentation-PMH Past Medical History: No History, Except For Hx Cardiac Problems: Yes - Leukemia Hx Hypertension: Yes - Osteoarthritis Hx Pacemaker: No Hx Asthma: Yes Hx COPD: No - Sleep Apnea Hx Diabetes: Yes Hx Cancer: No Hx Gastrointestinal Problems: No Hx Dialysis: No History Of Psychiatric Problem: No Hx Neurological Problems: No Hx Cerebrovascular Accident: Yes Hx Seizures: Yes Hx Headaches: Yes Hx Weakness: Yes Hx Fatigue: Yes (Sherley Chase) Review of Systems All Other Systems: negative except mentioned in HPI (Sherley Chase) Physical Exam Vital Signs Date Time Temp Pulse Resp B/P (MAP) Pulse Ox O2 Delivery O2 Flow Rate FiO2 10/16/18 12:05 98.4 100 18 149/76 (100) 94 Room Air Sp02 EP Interpretation: reviewed, normal General Appearance: well appearing, no apparent distress, alert, GCS 15, non- toxic, obese Head: normocephalic, atraumatic Eyes: bilateral eye normal inspection, bilateral eye PERRL ENT: hearing grossly normal, normal voice, other - no JVD Neck: full range of motion Respiratory: chest non-tender, lungs clear, normal breath sounds, no wheezing, speaking full sentences, other - distant breath sounds Cardiovascular #1: regular rate, rhythm, edema - 1+ pitting edema bilaterally. Gastrointestinal: non tender, soft Musculoskeletal: back normal, gait/station normal, normal range of motion, non- tender Neurologic: alert, oriented x3, responsive, motor strength/tone normal, sensory intact, normal gait, speech normal, grossly normal Psychiatric: other - apparent mental delay, but high functioning. Skin: no rash, well hydrated Lymphatic: no adenopathy (Sherley Chase) Medical Decision Making PA Attestation Dr. Casanova is my supervising Physician whom patient management has been discussed with. (Sherley Chase) Medicare Attestation Please note that the patient was seen and evaluated by myself as well. I do agree with the exam and findings on my evaluation patient remains hemodynamically stable medical evaluation is clear With lung sounds clear. Patient does have some dependent edema on lower extremities I discussed the importance of Close outpatient follow-up however the patient reports that she has been coming here since 2011, and does not need to go anywhere else I did discuss that appropriate cardiology and general medicine follow-up is very important and requires close follow-up (June Casanova DO) Diagnostic Impression: Primary Impression: Weakness generalized ER Course 62 YO Female presents to the ED c/o generalized fatigue and vaguely " not feeling well". Pt. with Asthma/COPD,CHF, psych hx and hx of non-compliance. Pt. denies pain. Denies N/V/F/C. Reports has been having bilateral pedal edema, but it has improved with her own " natural treatment and coffee". Pt. reports she only took one pill from previous visit but it "made her worse, " so she self-D/C 'd. Denies cough, SOB or exacerbation of her COPD. Denies CP, Palpitations, LOC , AMS, dizziness, Changes in Vision, Sensation, paresthesias, or a sudden severe headache. Ddx considered but are not limited to : MS, MG, [place], [place], drug intoxication, hypovolemia, infection, rhabdomyolysis, ETOH, CVA/TIA, NMS, CHF, Seizures, Cardiac outflow obstruction, QT-prolongation, Brugada, or Anemia just to name a few. Vital signs: are WNL, pt. is afebrile H&PE are most consistent with [ ] ORDERS: -CBC: WNL -CMP: WNL glucose 194, Potassium 3.8 -Troponin: WNL 0.002 -Pro-BNP: WNL 79 - CXR: mild congestion, poor inspiratory film. ED INTERVENTIONS: - Lasix 20mg PO DISCHARGE: At this time pt. is stable for d/c to home. Will provide printed patient care instructions, and any necessary prescriptions. Care plan and follow up instructions have been discussed with the patient prior to discharge. Labs Test 10/16/18 13:15 White Blood Count 10.6 K/UL (4.8-10.8) Red Blood Count 5.28 M/UL (4.20-5.40) Hemoglobin 13.6 G/DL (12.0-16.0) Hematocrit 43.4 % (37.0-47.0) Mean Corpuscular Volume 82 FL (80-99) Mean Corpuscular Hemoglobin 25.7 PG (27.0-31.0) Mean Corpuscular Hemoglobin Concent 31.2 G/DL (32.0-36.0) Red Cell Distribution Width 13.2 % (11.6-14.8) Platelet Count 430 K/UL (150-450) Mean Platelet Volume 6.7 FL (6.5-10.1) Neutrophils (%) (Auto) 66.6 % (45.0-75.0) Lymphocytes (%) (Auto) 17.6 % (20.0-45.0) Monocytes (%) (Auto) 9.6 % (1.0-10.0) Eosinophils (%) (Auto) 5.3 % (0.0-3.0) Basophils (%) (Auto) 0.9 % (0.0-2.0) Sodium Level 141 MMOL/L (136-145) Potassium Level 3.8 MMOL/L (3.5-5.1) Chloride Level 103 MMOL/L (98-107) Carbon Dioxide Level 29 MMOL/L (21-32) Anion Gap 9 mmol/L (5-15) Blood Urea Nitrogen 13 mg/dL (7-18) Creatinine 1.0 MG/DL (0.55-1.30) Estimat Glomerular Filtration Rate 56.0 mL/min (>60) Glucose Level 194 MG/DL (74-106) Calcium Level 9.3 MG/DL (8.5-10.1) Total Bilirubin 0.2 MG/DL (0.2-1.0) Aspartate Amino Transf (AST/SGOT) 18 U/L (15-37) Alanine Aminotransferase (ALT/SGPT) 19 U/L (12-78) Alkaline Phosphatase 142 U/L (46-116) Total Creatine Kinase 81 U/L (26-308) Troponin I 0.002 ng/mL (0.000-0.056) Pro-B-Type Natriuretic Peptide 79 pg/mL (0-125) Total Protein 7.8 G/DL (6.4-8.2) Albumin 3.1 G/DL (3.4-5.0) Globulin 4.7 g/dL Albumin/Globulin Ratio 0.7 (1.0-2.7) (Sherley Chase) EKG Diagnostic Results EP Interpretation: Dr. Casanova Rate: normal - 98 Rhythm: NSR ST Segments: no acute changes Other Impression PAC's ASA given to the pt in ED: No PA Scribe Text This Interpretation was scribed by KAUSHIK Chase. (Sherley Chase) Chest X-Ray Diagnostic Results Chest X-Ray Diagnostic Results : Chest X-Ray Ordered: Yes # of Views/Limited/Complete: 1 View Indication: Other - generalized weakness EP Interpretation: Yes PA Xray: Interpretation reviewed, by supervising MD, and agrees with findings. Interpretation: no consolidation, no effusion, no pneumothorax, other - Mild congestion noted. Poor inspiratory film. Impression: Other - Pulmonary congestion - mild Electronically Signed by: Sherley Chase PA-C (Sherley Chase) Last Vital Signs Date Time Temp Pulse Resp B/P (MAP) Pulse Ox O2 Delivery O2 Flow Rate FiO2 10/16/18 13:34 98.2 89 20 133/76 96 Room Air Status: improved (Sherley Chase) Disposition: HOME, SELF-CARE Condition: Stable Scripts Furosemide* (LASIX*) 20 Mg Tablet 20 MG ORAL DAILY for 7 Days, #7 TAB Prov: Sherley Chase 10/16/18 Referrals: NOT CHOSEN IPA/MD,REFERRING (PCP) Patient Instructions: Weakness, [id number] Additional Instructions: Take medications as directed. Follow up with a Primary Care Provider in 3-5 days, even if your symptoms have resolved. Recommend [facility] referral. --Please review list of primary care clinics, if you do not already have a primary care provider Return sooner to ED if new symptoms occur, or current symptoms become worse. . - Please note that this Emergency Department Report was dictated using Jungle[employer]ents[employer]al services director technology software, occasionally this can lead to erroneous entry secondary to interpretation by the dictation equipment. Sherley Chase Oct 16, 2018 13:56 June Casanova DO Oct 16, 2018 13:58
[2018-10-16 13:59] VITALS: BP 146/78
[2018-10-16 13:59] LABS: ALANINE AMINOTRANSFERASE 19 U/L (12-78); ALBUMIN 3.1 G/DL (3.4-5.0); ALBUMIN/GLOBULIN RATIO 0.7 (1.0-2.7); ALKALINE PHOSPHATASE 142 U/L (46-116); ASPARTATE AMINO TRANSFERASE 18 U/L (15-37); BILIRUBIN,TOTAL 0.2 MG/DL (0.2-1.0); CREATINE KINASE 81 U/L (26-308)
[2018-10-16] MEDS ORDERED: FUROSEMIDE20 M1 ORAL (14:26)
[2018-10-16 14:32] VITALS: BP 146/78
--- NOTE | 2018-10-16 14:32 | NUR ---
ER DISCHARGE NOTE: Patient is cleared to be discharged per ERMD, pt is aox4, on room air, with stable vital signs. pt was given dc and prescription instructions, pt was able to verbalize understanding, pt id band and iv site removed without complications. pt is able to ambulate with steady gait. pt took all belongings.
--- NOTE | 2018-10-17 15:17 | Cardiology Report ---
APPROVED REPORT EKG Measurement Heart [id number] VA 160P [id number] Sinus rhythm with premature supraventricular complexes Right superior axis deviation Abnormal ECG
== END 2018-10-16 14:32 | disposition home or self-care (01) ==
LOC: EMR 12:22
DX: R53.1 Weakness (principal); R60.0 Localized edema; E11.9 Type 2 diabetes mellitus without complications; I11.0 Hypertensive heart disease with heart failure; I50.9 Heart failure, unspecified; M19.90 Unspecified osteoarthritis, unspecified site; J44.9 Chronic obstructive pulmonary disease, unspecified; Z85.6 Personal history of leukemia; G47.30 Sleep apnea, unspecified; Z86.73 Personal history of transient ischemic attack (TIA), and cerebral infarction without residual deficits
CPT/HCPCS: 36415; 71045; 80053; 82550; 83880; 84484; 85025; 93005; 99284

== ENCOUNTER 2018-12-04 10:05 | Emergency (ER) | payer SELFPAY ==
[~2018-12-04] VITALS: Ht 162.6 cm; Wt 72.6 kg
[~2018-12-04 10:05] MED LIST changes: +NKM
[2018-12-04 10:13] VITALS: BP 139/85
--- NOTE | 2018-12-04 10:14 | NUR ---
ED Nurse Note: PT BROUGHT IN BY AMBULANCE FROM HOME CAME IN DUE TO GENERALIZED BODY PAIN FOR AN UNKNOWN AMOUNT OF TIME. NO REPORTS OF INJURY. HX OF PSYCH. AAO X4, AMBULATORY WITH NO RESPIRATORY DISTRESS.
--- NOTE | 2018-12-04 10:45 | NUR ---
ED Nurse Note: EXECUTIVE MANAGER AT THE BED SIDE FOR CXR.
--- NOTE | 2018-12-04 10:58 | Diagnostic Imaging Report ---
EXAM: XR Chest, 1 View CLINICAL HISTORY: Shortness of breath TECHNIQUE: Frontal view of the chest. COMPARISON: Chest x-ray dated 10 16 18 FINDINGS: Lungs: Mildly increased interstitial markings. The lungs are otherwise clear without focal consolidation. Pleural space: Unremarkable. The costophrenic angles are sharp. No visible pneumothorax. Heart: Cardiac silhouette is borderline enlarged. Mediastinum: Unremarkable. Bones joints: Unremarkable. IMPRESSION: Mildly increased interstitial markings. This is nonspecific but may suggest mild pulmonary vascular congestion or a mild interstitial pneumonitis. No focal consolidation.
[2018-12-04] MEDS ORDERED: ACETAMINOPHEN500 M3 ORAL (11:45)
[2018-12-04] MEDS ORDERED: THIOTHIXENE 2 MG ORAL ONE (11:45)
[2018-12-04 11:54] VITALS: BP 132/80
--- NOTE | 2018-12-04 11:54 | NUR ---
Note diannalenora in EDM - 12/04/18 at 1206 by ARLETTE ER DISCHARGE NOTE: Patient is cleared to be discharged per ERMD, pt is aox4, on room air, with stable vital signs. pt was given dc and prescription instructions, pt was able to verbalize understanding, pt id band removed. pt took all belongings. Pt transportation arranged via [employer].
--- NOTE | 2018-12-04 11:54 | NUR ---
ED Nurse Note: PT REFUSED [facility] MEDICATION. DR KILPATRICK WAS NOTIFIED.
--- NOTE | 2018-12-04 11:54 | NUR ---
ER DISCHARGE NOTE: Patient is cleared to be discharged per ERMD, pt is aox4, on room air, with stable vital signs. pt was given dc and prescription instructions, pt was able to verbalize understanding, pt id band removed. pt took all belongings. Pt provided with taxi voucher.
--- NOTE | 2018-12-04 14:16 | Emergency Room Report ---
History of Present Illness General Chief Complaint: Pain Source: Patient, Medical Record Present Illness HPI Patient is a 63-year-old female presented after increased generalized body pain. Patient had prior history of some psychiatric disease. She reports having pain throughout her entire body. She reports that she had been having pain for several hours. She denies any recent trauma. She denies any recent change in medications. She had prior history of noncompliance medications for diabetes as well as for pain. Allergies: Coded Allergies: NO KNOWN ALLERGIES (Unverified Allergy, Unknown, 09/17/18) Patient History Past Medical History: see triage record Reviewed Nursing Documentation: PMH: Agreed; PSxH: Agreed Nursing Documentation-PMH Past Medical History: No History, Except For Hx Cardiac Problems: Yes - Leukemia Hx Hypertension: Yes - Osteoarthritis Hx Pacemaker: No Hx Asthma: Yes Hx COPD: No - Sleep Apnea Hx Diabetes: Yes Hx Cancer: No Hx Gastrointestinal Problems: No Hx Dialysis: No History Of Psychiatric Problem: Yes - Bipolar Hx Neurological Problems: No Hx Cerebrovascular Accident: Yes Hx Seizures: Yes Hx Headaches: Yes Hx Weakness: Yes Hx Fatigue: Yes Physical Exam Vital Signs Date Time Temp Pulse Resp B/P (MAP) Pulse Ox O2 Delivery O2 Flow Rate FiO2 12/04/18 10:05 97.5 82 16 142/80 (100) 99 Room Air General Appearance: well appearing, no apparent distress Head: normocephalic, atraumatic ENT: hearing grossly normal, normal voice Neck: full range of motion, supple Respiratory: no respiratory distress, speaking full sentences Cardiovascular #1: normal inspection, regular rate, rhythm Musculoskeletal: no calf tenderness Neurologic: normal inspection, alert, oriented x3, responsive, circuit board repair technician III-XII nml as tested, normal gait Psychiatric: mood/affect normal Skin: no rash Medical Decision Making Diagnostic Impression: Primary Impression: Generalized pain ER Course Presented for generalized body pain. Differential diagnosis include was not limited to arthritis, myocardial injury, viral infection among others. Patient has a benign exam and does not appear to require any imaging or laboratory testing at this time. EKG was ordered due to patient's prior history of irregular heartbeat. A EKG interpreted by me showed normal sinus rhythm without acute ST or T wave changes. Medications ordered due to patient's prior history of psychosis. Patient refuses medications. Patient appears to be stable for discharge. She sent home via taxi. The patient is advised to follow up with primary care doctor in 1-2 days. Patient is advised to return if any worsening condition or if any changes in status that are concerning. This report is dictated with [employer] motion picture narrator software which may occasionally lead to discrepancies related to use of this software. EKG Diagnostic Results Rate: normal Rhythm: NSR ST Segments: no acute changes Last Vital Signs Date Time Temp Pulse Resp B/P (MAP) Pulse Ox O2 Delivery O2 Flow Rate FiO2 12/04/18 11:54 98.2 74 15 132/80 99 Room Air Status: improved Disposition: HOME, SELF-CARE Condition: Stable Scripts Acetaminophen* (ACETAMINOPHEN EXTRA STRENGTH*) 500 Mg Tablet 500 MG ORAL Q8H PRN for Fever/Headache/Mild Pain, #10 TAB Prov: Nicanor Middleton MD 12/04/18 Referrals: NOT CHOSEN IPA/,REFERRING (PCP) Patient Instructions: Arthritis, Hasx-ga-Sxhj Nicanor Middleton MD Dec 04, 2018 14:16
--- NOTE | 2018-12-07 16:57 | Cardiology Report ---
APPROVED REPORT EKG Measurement Heart [id number] Normal sinus rhythm Normal ECG
== END 2018-12-04 11:54 | disposition home or self-care (01) ==
LOC: EDBD 10:05 → EMR 11:02
DX: R52 Pain, unspecified (principal); F31.9 Bipolar disorder, unspecified; Z86.73 Personal history of transient ischemic attack (TIA), and cerebral infarction without residual deficits; J45.909 Unspecified asthma, uncomplicated; I10 Essential (primary) hypertension; M19.90 Unspecified osteoarthritis, unspecified site; Z85.6 Personal history of leukemia; G47.30 Sleep apnea, unspecified; E11.9 Type 2 diabetes mellitus without complications
CPT/HCPCS: 71045; 93005; 99283

== ENCOUNTER 2018-12-20 12:29 | Inpatient (IN) | payer MEDICARE ==
[~2018-12-20] VITALS: Ht 162.6 cm; Wt 79.2 kg
[~2018-12-20 12:29] MED LIST changes: +ACETAMINOPHEN500 M3 ORAL
[2018-12-20] MEDS ORDERED: COZAAR25 MG ORAL (12:46)
[2018-12-20] MEDS ORDERED: METFORMIN HCL500 M1 ORAL (12:46)
[2018-12-20] MEDS ORDERED: ASPIR 8181 MG ORAL (12:46)
[2018-12-20] MEDS ORDERED: GLIPIZIDE5 MG ORAL (12:46)
[2018-12-20] MEDS ORDERED: LORazepam Inj 2mg/ml 1ml IV ONE (13:00)
[2018-12-20] MEDS ORDERED: DiphenhydrAMINE 50mg/ml Inj IVP ONE (13:00)
[2018-12-20] MEDS ORDERED: Haloperidol 5mg/ml Inj IM ONE ×2 (13:00→15:30)
--- NOTE | 2018-12-20 13:04 | Emergency Room Report ---
History of Present Illness General Chief Complaint: Behavioral Complaint Source: Patient, EMS Present Illness HPI Patient presents with agitation and complaining of abdominal pain. Apparently she was unable to care for herself at her home. She is been living on the streets. [employer] was summoned and they summoned paramedics to evaluate the patient. Paramedics transported the patient here. The patient was seen December 04. This is the medical decision dictation: Presented for generalized body pain. Differential diagnosis include was not limited to arthritis, myocardial injury, viral infection among others. Patient has a benign exam and does not appear to require any imaging or laboratory testing at this time. EKG was ordered due to patient's prior history of irregular heartbeat. A EKG interpreted by me showed normal sinus rhythm without acute ST or T wave changes. Medications ordered due to patient's prior history of psychosis. Patient refuses medications. Patient appears to be stable for discharge. She sent home via taxi. The patient is advised to follow up with primary care doctor in 1-2 days. Patient is advised to return if any worsening condition or if any changes in status that are concerning. The patient was evaluated for generalized weakness in October. She was given a dose of lasix and sent home. The patient was seen in September. Medical decision makin-year-old female presents with bilateral pedal edema appears chronic in nature , no evidence of cellulitis no infection, no tenderness to palpation will start patient on a small dose of Lasix counseled patient to follow-up with PCP The patient was admitted June of this year. Discharge diagnoses: Acute diastolic congestive heart failure -resolved Hypertensive heart disease History of asymptomatic heart block-no recurrence Type 2 diabetes mellitus Patient has a history of bipolar disorder. She denies taking lithium. She is not taking medication at this time. Patient denies suicidal or homicidal ideation at this time. Abdominal pain is chronic. As a pediatric patient she had surgery. The abdominal pain is intermittent. She denies any vomiting or diarrhea. She also denies dysuria however she smells like she has a UTI. No fevers, chills, sore throat, chest pain, palpitations, nausea, vomiting, diarrhea, dysuria, shortness of breath, joint pain, rashes, visual changes, dizziness, headache. Allergies: Coded Allergies: NO KNOWN ALLERGIES (Unverified Allergy, Unknown, 09/17/18) Patient History Past Medical History: see triage record, old chart reviewed Social History: Denies: smoking Social History Narrative Homeless Last Menstrual Period: n/a Reviewed Nursing Documentation: PMH: Agreed; PSxH: Agreed Nursing Documentation-PMH Past Medical History: No History, Except For Hx Cardiac Problems: Yes - Leukemia Hx Hypertension: Yes Hx Pacemaker: No Hx Asthma: Yes Hx COPD: No - Sleep Apnea Hx Diabetes: Yes - Type 2 Hx Cancer: No Hx Gastrointestinal Problems: No Hx Dialysis: No Hx Neurological Problems: No Hx Cerebrovascular Accident: Yes Hx Seizures: Yes Hx Headaches: Yes Hx Weakness: Yes Hx Fatigue: Yes Review of Systems All Other Systems: negative except mentioned in HPI Physical Exam Vital Signs Date Time Temp Pulse Resp B/P (MAP) Pulse Ox O2 Delivery O2 Flow Rate FiO2 12/20/18 12:27 98.2 98 18 155/92 (113) 98 Room Air Sp02 EP Interpretation: reviewed, normal General Appearance: no apparent distress, alert, non-toxic, other - confabulating Head: normocephalic, atraumatic Eyes: bilateral eye normal inspection, bilateral eye PERRL, bilateral eye EOMI ENT: moist mucus membranes Neck: full range of motion, supple Respiratory: lungs clear, normal breath sounds Cardiovascular #1: regular rate, rhythm, edema - 1-2+ pedal edema Cardiovascular #2: 2+ radial (L) Gastrointestinal: normal bowel sounds, soft, no guarding, no rebound, tenderness - Reported, other - Old surgical scars Genitourinary: no CVA tenderness Musculoskeletal: digits/nails normal, gait/station normal, normal range of motion, no calf tenderness Neurologic: alert, motor strength/tone normal, DTRs symmetric, sensory intact, cerebellar normal, normal gait, speech normal - Pressured, oriented - X2 Psychiatric: no suicidal/homicidal ideation, other - Labile Skin: no rash, warm/dry Medical Decision Making Restraint Attestation I, Giovani Lan MD, have personally evaluated this patient. Laboratory tests have been reviewed and addressed accordingly. The patient is deemed to present a danger to themselves and/or others. This is based on the exam, history ( provided by patient, EMS/[employer]) and observed or reported behavior. Attempts for non-invasive measures have been considered and/or attempted, however, have been futile. It is in the best interest of the nursing staff, the patient, and others involved in this patient's care that non-behavioral restraints be applied. Patient evaluation reveals the following: Moderately delusional, gravely disabled and combative with nursing staff. Behavioral: Bipolar Disorder Reaction to Intervention: No change Restraint Reassesment After sedation sedation patient improved but still moderately combative with staff. Diagnostic Impression: Primary Impression: Abdominal pain Qualified Codes: R10.84 - Generalized abdominal pain Additional Impressions: Bipolar disorder Qualified Codes: F31.64 - Bipolar disorder, current episode mixed, severe, with psychotic features UTI (urinary tract infection) Qualified Codes: N39.0 - Urinary tract infection, site not specified Pedal edema ER Course Patient brought in by EMS from the streets with behavioral disorder and failure to take care of herself. Differential includes occult infection, electrolyte imbalance, exacerbation of bipolar disorder, acute myocardial infarction, bowel obstruction, gastritis amongst others. Patient evaluated with EKG, chest x-ray and labs. IV hydration ordered. Suspect urinary tract infection. The patient is moderately delusional at this time. She denies suicidal or homicidal ideation. She is gravely disabled. Unable to initiate full work-up because of agitation. Sedation ordered. EKG with and without injury. Chest x-ray no infiltrates. No free air. Patient sedated with medications. 3:15 Still combative. Non-behavioral restraints and repeat Haldol. Labs pending. Patient signed out to . EKG Diagnostic Results Rate: normal Rhythm: NSR ST Segments: no acute changes Rhythm Strip Diag. Results EP Interpretation: yes Rhythm: NSR, no PVC's, no ectopy Chest X-Ray Diagnostic Results Chest X-Ray Diagnostic Results : Chest X-Ray Ordered: Yes # of Views/Limited/Complete: 1 View Indication: Other EP Interpretation: Yes Interpretation: no consolidation, no effusion Impression: No acute disease Electronically Signed by: Electronically signed by Giovani Lan MD Last Vital Signs Date Time Temp Pulse Resp B/P (MAP) Pulse Ox O2 Delivery O2 Flow Rate FiO2 12/20/18 18:36 Room Air 12/20/18 18:00 98.1 68 20 143/66 (91) 98 Status: improved Disposition: ADMITTED INPATIENT Condition: Serious Giovani Lan MD Dec 20, 2018 13:04
--- NOTE | 2018-12-20 14:47 | Diagnostic Imaging Report ---
Indication: Dyspnea Comparison: 12/04/2018 A single view chest radiograph was obtained. Findings: Cardiomediastinal appearance is within normal limits for age. The lungs are clear. Pulmonary vascularity is appropriate. The diaphragmatic contour is smooth and costophrenic angles are sharp. No pleural effusions are identified. The bones are unremarkable. Impression: No acute findings
[2018-12-20] MEDS ORDERED: DiphenhydrAMINE 50mg/ml Inj IM ONE (15:15)
[2018-12-20] MEDS ORDERED: LORazepam Inj 2mg/ml 1ml IM ONE (15:15)
[2018-12-20 16:22] LABS: BASOPHILS % (AUTO) 1.1 % (0.0-2.0); EOSINOPHILS % (AUTO) 3.5 % (0.0-3.0); HEMATOCRIT 40.3 % (37.0-47.0); HEMOGLOBIN 13.1 G/DL (12.0-16.0); LYMPHOCYTES % (AUTO) 10.5 % (20.0-45.0); MEAN CORPUSCULAR VOLUME 81 FL (80-99); NEUTROPHILS % (AUTO) 76.9 % (45.0-75.0); PLATELET COUNT 423 K/UL (150-450); WHITE BLOOD COUNT 14.2 K/UL (4.8-10.8)
[2018-12-20 16:24] LABS: APPEARANCE,URINE CLOUDY; BILIRUBIN, URINE NEGATIVE (NEGATIVE); COLOR,URINE PALE YELLOW; GLUCOSE, URINE (UA) NEGATIVE (NEGATIVE); KETONES,URINE 1+ (NEGATIVE); LEUKOCYTE ESTERASE ,URINE 3+ (NEGATIVE); NITRITE,URINE POSITIVE (NEGATIVE); PH,URINE 7 (4.5-8.0); PROTEIN,URINE 1+ (NEGATIVE); UROBILINOGEN,URINE NORMAL MG/DL (0.0-1.0)
[2018-12-20 16:27] VITALS: BP 129/68
[2018-12-20 16:41] LABS: ALANINE AMINOTRANSFERASE 27 U/L (12-78); ALBUMIN 2.8 G/DL (3.4-5.0); ALBUMIN/GLOBULIN RATIO 0.6 (1.0-2.7); ALKALINE PHOSPHATASE 139 U/L (46-116); ANION GAP 9 mmol/L (5-15); ASPARTATE AMINO TRANSFERASE 25 U/L (15-37); BILIRUBIN,TOTAL 0.5 MG/DL (0.2-1.0); BLOOD UREA NITROGEN 16 mg/dL (7-18); CARBON DIOXIDE 28 MMOL/L (21-32); CHLORIDE 105 MMOL/L (98-107); CREATINE KINASE 245 U/L (26-308); CREATININE 0.7 MG/DL (0.55-1.30); POTASSIUM 3.7 MMOL/L (3.5-5.1); SODIUM 142 MMOL/L (136-145)
[2018-12-20] MEDS ORDERED: cefTRIAXone 1 GM in NS 55 ML IVPB ONE (17:15)
[2018-12-20 18:00] VITALS: BP 143/66
[2018-12-20] MEDS ORDERED: LORazepam Inj 2mg/ml 1ml IV PRN (18:30)
[2018-12-20 20:00] VITALS: BP 134/62
[2018-12-20] MEDS ORDERED: Heparin 5000 units/ml inj SUBQ SCH (21:00)
[2018-12-20] MEDS ORDERED: NovoLOG Insulin Flexpen SUBQ SCH (21:00)
[2018-12-20 21:19] LABS: BASOPHILS % (AUTO) 1.4 % (0.0-2.0); EOSINOPHILS % (AUTO) 5.5 % (0.0-3.0); HEMOGLOBIN 12.8 G/DL (12.0-16.0); LYMPHOCYTES % (AUTO) 14.9 % (20.0-45.0); MEAN CORPUSCULAR VOLUME 81 FL (80-99); MONOCYTES % (AUTO) 7.4 % (1.0-10.0); NEUTROPHILS % (AUTO) 70.8 % (45.0-75.0); PLATELET COUNT 429 K/UL (150-450); RED BLOOD COUNT 4.93 M/UL (4.20-5.40); RED CELL DISTRIBUTION WIDTH 12.7 % (11.6-14.8); WHITE BLOOD COUNT 13.4 K/UL (4.8-10.8)
[2018-12-20 21:42] LABS: ALANINE AMINOTRANSFERASE 23 U/L (12-78); ALBUMIN 2.7 G/DL (3.4-5.0); ALBUMIN/GLOBULIN RATIO 0.6 (1.0-2.7); ALKALINE PHOSPHATASE 132 U/L (46-116); ANION GAP 2 mmol/L (5-15); ASPARTATE AMINO TRANSFERASE 23 U/L (15-37); BILIRUBIN,TOTAL 0.4 MG/DL (0.2-1.0); BLOOD UREA NITROGEN 14 mg/dL (7-18); CALCIUM 8.9 MG/DL (8.5-10.1); CARBON DIOXIDE 34 MMOL/L (21-32); CHLORIDE 106 MMOL/L (98-107); CREATININE 0.8 MG/DL (0.55-1.30); POTASSIUM 3.8 MMOL/L (3.5-5.1); SODIUM 141 MMOL/L (136-145)
[2018-12-20] MEDS ORDERED: Piperacillin/Tazobactam 3.375 GM in NS 110 ML IVPB SCH (22:00)
--- NOTE | 2018-12-20 22:30 | History and Physical Report ---
DATE OF ADMISSION: 12/20/2018 CHIEF COMPLAINT: Altered mental status, sepsis, UTI. HISTORY OF PRESENT ILLNESS: The patient is a 63-year-old female. She has a history of hypertension and diabetes, brought in by family members with complaints of confusion with altered mental status. She was apparently found on the ground, covered in urine. She was markedly confused and altered. Paramedics brought the patient to the emergency room. On evaluation there, she had an elevated white count. She had evidence of urinary tract infection. She was agitated and combative. She received multiple anxiolytics. She has been pancultured and antibiotics have been started for urinary tract infection and possible sepsis. She is admitted for further evaluation and care. Currently, the patient is somnolent and sleepy. PAST MEDICAL HISTORY: As above. PAST SURGICAL HISTORY: Unknown. CURRENT MEDICATIONS: Reconciled and reviewed. ALLERGIES: None. FAMILY HISTORY: Unknown. SOCIAL HISTORY: There is no known history of tobacco, ethanol, or drugs. REVIEW OF SYSTEMS: Unobtainable, as the patient is confused. PHYSICAL EXAMINATION: VITAL SIGNS: Temperature 98.1, pulse 68, respirations 20, and blood pressure 143/66. The patient is a well-developed female, in no apparent distress. HEART: Regular rate and rhythm. LUNGS: Clear. ABDOMEN: Soft, nontender, nondistended. EXTREMITIES: Without clubbing, cyanosis, or edema. LABORATORY DATA: White count was [id number], hemoglobin 13. Sodium 142, potassium 3.7, and creatinine was 0.7. UA showed too numerous to count wbc's. ASSESSMENT: This is a 63-year-old female with a history of hypertension and diabetes, admitted with complaints of altered mental status, suspect secondary to UTI and early sepsis. PLAN: IV antibiotics. Intravenous hydration. Resume outpatient medication regimen. CT scan of the head. I have attempted to call family members to get more history, but unable to contact any family. Terence Alva M.D. DR: GISELLA JOB#: [id number] CC:
[2018-12-20] MEDS: Piperacillin/Tazobactam 3.375 GM in NS 110 ML IVPB SCH (22:37)
[2018-12-21] VITALS: BP 126/68
[2018-12-21 04:00] VITALS: BP 122/71
[2018-12-21] MEDS: Heparin 5000 units/ml inj SUBQ SCH ×3 (05:30→22:08)
[2018-12-21] MEDS: Piperacillin/Tazobactam 3.375 GM in NS 110 ML IVPB SCH ×3 (06:19→21:50)
[2018-12-21] MEDS: NovoLOG Insulin Flexpen SUBQ SCH ×4 (06:26→22:05)
[2018-12-21 08:00] VITALS: BP 144/77
[2018-12-21] MEDS: LORazepam Inj 2mg/ml 1ml IV PRN ×3 (08:38→22:06)
[2018-12-21] MEDS ORDERED: metFORMIN 500mg tab ORAL SCH (09:00)
[2018-12-21] MEDS ORDERED: Losartan 25mg tab ORAL SCH (09:00)
[2018-12-21] MEDS ORDERED: Heparin 5000 units/ml inj SUBQ SCH (09:00)
[2018-12-21] MEDS ORDERED: Aspirin EC 81mg tab ORAL SCH (09:00)
[2018-12-21] MEDS ORDERED: GlipiZIDE 5mg tab ORAL SCH (09:00)
[2018-12-21] MEDS: metFORMIN 500mg tab ORAL SCH ×2 (09:40→17:27)
[2018-12-21] MEDS: Aspirin EC 81mg tab ORAL SCH (09:40)
[2018-12-21] MEDS: Losartan 25mg tab ORAL SCH (09:41)
[2018-12-21] MEDS: GlipiZIDE 5mg tab ORAL SCH (09:41)
--- NOTE | 2018-12-21 11:39 | Diagnostic Imaging Report ---
Indication: Headache Technique: Contiguous 5 mm thick transaxial imaging of the head obtained in a Siemens Sensation [address] scanner. Soft tissue and bone windows generated. Automatic Exposure Control was utilized. Total Dose length Product (DLP): 1457.[address] Dose Index Volume (CTDIvol): 62.7 mGy Comparison: none Findings: The size and configuration of the cortical sulci, basal cisterns, and ventricles are within normal limits for age. There is no mass effect, midline shift, or edema identified. There is no evidence of acute hemorrhage or abnormal intra-axial or extra-axial fluid collections. The bones and soft tissues are unremarkable. There is mild mucosal thickening within paranasal sinuses. Impression: No mass effect, edema or acute bleed. Mild sinusitis The CT scanner at [facility] is accredited by the [employer] and the scans are performed using dose optimization techniques as appropriate to a performed exam including Automatic Exposure control.
[2018-12-21 12:00] VITALS: BP 134/69
--- NOTE | 2018-12-21 15:14 | Diagnostic Imaging Report ---
Indication: Chest pain Technique: A ventilation/perfusion scan was performed. Ventilation was performed utilizing 40 mCi of Technetium 99m-DTPA. Perfusion was performed with 5.2 mCi of technetium 99m-MAA injected intravenously. Multiple side by side projections obtained. Findings: Ventilation is mildly heterogeneous. No significant defects are identified. Perfusion is mildly heterogeneous. No significant defects are identified. No mismatched defects seen. Impression: Low probability for pulmonary embolus Interpretation of findings are based on PIELROYD II mikayla (2006).
--- NOTE | 2018-12-21 15:38 | General Progress Note ---
Assessment/Plan Problem List: (1) UTI (urinary tract infection) ICD Codes: N39.0 - Urinary tract infection, site not specified SNOMED: 72204864 (2) Status asthmaticus ICD Codes: J45.902 - Unspecified asthma with status asthmaticus SNOMED: 85516767 (3) HTN (hypertension) ICD Codes: I10 - Essential (primary) hypertension SNOMED: 82622369 (4) DM (diabetes mellitus) ICD Codes: E11.9 - Type 2 diabetes mellitus without complications SNOMED: 21046127 Status: stable Assessment/Plan: wean o2 iv abx resp care anxiolytics dvt/stress ulcer prophykaxis Subjective ROS Limited/Unobtainable: Yes Constitutional: Reports: no symptoms HEENT: Reports: no symptoms Cardiovascular: Reports: no symptoms Respiratory: Reports: shortness of breath Gastrointestinal/Abdominal: Reports: no symptoms Genitourinary: Reports: no symptoms Neurologic/Psychiatric: Reports: no symptoms Endocrine: Reports: no symptoms Hematologic/Lymphatic: Reports: no symptoms Allergies: Coded Allergies: NO KNOWN ALLERGIES (Unverified Allergy, Unknown, 09/17/18) All Systems: reviewed and negative except above Subjective transferred to dia for hypoxemia. on venti mask. confused. v/q and head ct negative Objective Last 24 Hour Vital Signs Date Time Temp Pulse Resp B/P (MAP) Pulse Ox O2 Delivery O2 Flow Rate FiO2 12/21/18 13:49 101 24 100 Facial 40 12/21/18 12:00 Bi-pap 12/21/18 12:00 98.4 96 24 134/69 (90) 98 12/21/18 11:46 99 20 97 Facial 40 12/21/18 11:27 97 12/21/18 09:41 144/77 12/21/18 08:00 98.9 105 26 144/77 (99) 100 12/21/18 08:00 Nasal Cannula 4.0 12/21/18 07:46 112 12/21/18 07:31 107 22 100 Venturi Mask 8.0 40 12/21/18 04:00 Venturi Mask 4.0 12/21/18 04:00 98.1 95 22 122/71 (88) 97 12/21/18 00:00 98.4 103 24 126/68 (87) 98 12/20/18 22:35 Venturi Mask 12/20/18 21:23 124 12/20/18 20:30 91 17 98 12/20/18 20:00 97.3 102 17 134/62 (86) 74 12/20/18 18:36 Room Air 12/20/18 18:00 98.1 68 20 143/66 (91) 98 12/20/18 17:26 97.8 86 16 126/78 97 Room Air 12/20/18 16:27 97.6 95 16 129/68 94 Room Air Intake and Output 12/20/18 12/21/18 19:00 07:00 Intake Total 1055 ml 748.79 ml Output Total 400 ml Balance 1055 ml 348.79 ml Intake IV Total 1055 ml 748.79 ml Output Urine Total 400 ml # Voids 1 # Bowel Movements 1 2 Laboratory Tests 12/20/18 16:00: White Blood Count 14.2H, Red Blood Count 5.00, Hemoglobin 13.1, Hematocrit 40.3 , Mean Corpuscular Volume 81, Mean Corpuscular Hemoglobin 26.3L, Mean Corpuscular Hemoglobin Concent 32.6, Red Cell Distribution Width 13.0, Platelet Count 423, Mean Platelet Volume 5.9L, Neutrophils (%) (Auto) 76.9H, Lymphocytes (%) (Auto) 10.5L, Monocytes (%) (Auto) 8.0, Eosinophils (%) (Auto) 3.5H, Basophils (%) (Auto) 1.1, Urine Color Pale yellow, Urine Appearance Cloudy, Urine pH 7, Urine Specific [place] 1.010, Urine Protein 1+H, Urine Glucose (UA) Negative, Urine Ketones 1+H, Urine Blood 2+H, Urine Nitrite PositiveH, Urine Bilirubin Negative, Urine Urobilinogen Normal, Urine Leukocyte Esterase 3+H, Urine RBC 2-4H, Urine WBC TntcH, Urine Squamous Epithelial Cells None, Urine Bacteria ManyH, Sodium Level 142, Potassium Level 3.7, Chloride Level 105, Carbon Dioxide Level 28, Anion Gap 9, Blood Urea Nitrogen 16, Creatinine 0.7, Estimat Glomerular Filtration Rate > 60, Glucose Level 135H, Calcium Level 9.0, Total Bilirubin 0.5, Aspartate Amino Transf (AST/SGOT) 25, Alanine Aminotransferase (ALT/SGPT) 27, Alkaline Phosphatase 139H, Total Creatine Kinase 245, Troponin I 0.000, Total Protein 7.4, Albumin 2.8L, Globulin 4.6, Albumin/Globulin Ratio 0.6L, Salicylates Level 0.8L, Urine Opiates Screen Negative, Acetaminophen Level < 2L, Urine Barbiturates Screen Negative, Phencyclidine (PCP) Screen Negative, Urine Amphetamines Screen Negative, Urine Benzodiazepines Screen Negative, Urine Cocaine Screen Negative, Urine Marijuana (THC) Screen Negative, Serum Alcohol < 3 12/20/18 20:38: White Blood Count 13.4H, Red Blood Count 4.93, Hemoglobin 12.8, Hematocrit 40.0 , Mean Corpuscular Volume 81, Mean Corpuscular Hemoglobin 26.0L, Mean Corpuscular Hemoglobin Concent 32.1, Red Cell Distribution Width 12.7, Platelet Count 429, Mean Platelet Volume 6.3L, Neutrophils (%) (Auto) 70.8, Lymphocytes ( %) (Auto) 14.9L, Monocytes (%) (Auto) 7.4, Eosinophils (%) (Auto) 5.5H, Basophils (%) (Auto) 1.4, Sodium Level 141, Potassium Level 3.8, Chloride Level 106, Carbon Dioxide Level 34H, Anion Gap 2L, Blood Urea Nitrogen 14, Creatinine 0.8, Estimat Glomerular Filtration Rate > 60, Glucose Level 124H, Calcium Level 8.9, Total Bilirubin 0.4, Aspartate Amino Transf (AST/SGOT) 23, Alanine Aminotransferase (ALT/SGPT) 23, Alkaline Phosphatase 132H, Total Protein 7.2, Albumin 2.7L, Globulin 4.5, Albumin/Globulin Ratio 0.6L 12/20/18 21:40: Arterial Blood pH 7.370, Arterial Blood Partial Pressure CO2 41.2, Arterial Blood Partial Pressure O2 80.2, Arterial Blood HCO3 23.8, Arterial Blood Oxygen Saturation 95.7, Arterial Blood Base Excess -1.3, Mark Test Positive Height (Feet): 5 Height (Inches): 5.00 Weight (Pounds): 175 General Appearance: WD/WN, lethargic, confused Cardiovascular: regular rhythm Respiratory/Chest: normal breath sounds Abdomen: normal bowel sounds, non tender, soft, no organomegaly Edema: no edema noted Arm (L), no edema noted Arm (R), no edema noted Leg (L), no edema noted Leg (R), no edema noted Pedal (L), no edema noted Pedal (R), no edema noted Generalized Neurologic: disoriented Terence Alva MD Dec 21, 2018 15:38
[2018-12-21 16:00] VITALS: BP 153/75
[2018-12-21 20:00] VITALS: BP 130/80
[2018-12-22] VITALS: BP 138/64
[2018-12-22 04:00] VITALS: BP 142/66
[2018-12-22] MEDS: Piperacillin/Tazobactam 3.375 GM in NS 110 ML IVPB SCH ×3 (05:36→22:23)
[2018-12-22] MEDS: NovoLOG Insulin Flexpen SUBQ SCH ×4 (06:30→21:00)
[2018-12-22] MEDS ORDERED: ABILIFY5 MG ORAL (07:39)
[2018-12-22] MEDS ORDERED: VENTOLIN HFA18 GM INH (07:46)
[2018-12-22] MEDS ORDERED: ATORVASTATIN CA10 MG ORAL (07:46)
[2018-12-22 08:00] VITALS: BP 137/72
[2018-12-22] MEDS: Haloperidol 5mg/ml Inj IM PRN (08:41)
[2018-12-22] MEDS: metFORMIN 500mg tab ORAL SCH ×2 (09:00→18:00)
[2018-12-22] MEDS: Losartan 25mg tab ORAL SCH (09:00)
[2018-12-22] MEDS: Aspirin EC 81mg tab ORAL SCH (09:00)
[2018-12-22] MEDS: GlipiZIDE 5mg tab ORAL SCH (09:00)
[2018-12-22] MEDS: Heparin 5000 units/ml inj SUBQ SCH ×2 (10:02→22:23)
[2018-12-22] MEDS: LORazepam Inj 2mg/ml 1ml IV PRN ×3 (11:25→22:25)
[2018-12-22 11:29] VITALS: BP 159/65
--- NOTE | 2018-12-22 13:26 | CDS Physician Query ---
Clarification is required for compliance, coding accuracy, and to reflect severity of illness for this patient Dear Dr. Terence Alva Date: 12/22/2018 [employer]/CDS Name: Ena Mcfarland Clinical Documentation states: 63-year-old female with a history of hypertension and diabetes, admitted with complaints of altered mental status, suspect secondary to UTI and early sepsis. PLAN: IV antibiotics. Intravenous hydration. Resume outpatient medication regimen. CT scan of the head. LABORATORY DATA: [place] count [place] [address], hemoglobin 13. Sodium 142, potassium 3.7, and creatinine was 0.7. UA showed too numerous to count wbc's. Head CT: Impression: No mass effect, edema or acute bleed. Please indicate the nature and chronicity of the condition below: [x] Metabolic Encephalopathy [] Toxic Encephalopathy [] Toxic - Metabolic Encephalopathy [] Encephalopathy, Other [] Dementia with Delirium [] Hypoxic encephalopathy [] Posterior reversible encephalopathy syndrome [] Other: [] Not Applicable Present on Admission: [] Yes [] No [] Clinically Undetermined Physician signature Date Please also document in your Progress Notes and/or Discharge Summary and indicate if the condition was present on admission. MTDD
--- NOTE | 2018-12-22 15:35 | General Progress Note ---
Assessment/Plan Problem List: (1) UTI (urinary tract infection) ICD Codes: N39.0 - Urinary tract infection, site not specified SNOMED: 18706903 (2) Status asthmaticus ICD Codes: J45.902 - Unspecified asthma with status asthmaticus SNOMED: 11659115 (3) HTN (hypertension) ICD Codes: I10 - Essential (primary) hypertension SNOMED: 46419363 (4) DM (diabetes mellitus) ICD Codes: E11.9 - Type 2 diabetes mellitus without complications SNOMED: 36673387 Status: stable Assessment/Plan: wean o2 iv abx resp care anxiolytics dvt/stress ulcer prophykaxis resume psych meds Subjective ROS Limited/Unobtainable: No Constitutional: Reports: malaise, weakness HEENT: Reports: no symptoms Cardiovascular: Reports: no symptoms Respiratory: Reports: cough, shortness of breath Gastrointestinal/Abdominal: Reports: no symptoms Genitourinary: Reports: no symptoms Neurologic/Psychiatric: Reports: anxiety, emotional problems Endocrine: Reports: no symptoms Hematologic/Lymphatic: Reports: no symptoms Allergies: Coded Allergies: NO KNOWN ALLERGIES (Unverified Allergy, Unknown, 09/17/18) All Systems: reviewed and negative except above Subjective on bipap. confused and agitated. fiance at the bedside. pt has been off psych meds for 6 mos Objective Last 24 Hour Vital Signs Date Time Temp Pulse Resp B/P (MAP) Pulse Ox O2 Delivery O2 Flow Rate FiO2 12/22/18 14:56 95 18 100 Facial 40 12/22/18 12:30 89 17 100 Facial 40 12/22/18 12:00 Bi-pap 12/22/18 11:29 98.6 87 18 159/65 (96) 100 12/22/18 11:29 89 12/22/18 10:00 90 26 100 Full Face 40 12/22/18 09:00 131/72 12/22/18 08:00 Room Air 12/22/18 08:00 98.6 89 23 137/72 (93) 100 12/22/18 07:23 91 12/22/18 06:55 91 28 100 Full Face 40 12/22/18 05:15 91 28 100 Full Face 40 12/22/18 04:11 91 12/22/18 04:00 Bi-pap 12/22/18 04:00 98.9 84 14 142/66 (91) 100 12/22/18 02:52 94 26 100 Full Face 40 12/22/18 00:52 101 17 98 Full Face 40 12/22/18 00:00 97 12/22/18 00:00 98.9 89 18 138/64 (88) 100 12/22/18 00:00 Bi-pap 12/21/18 23:09 99 14 97 Full Face 40 12/21/18 21:20 99 14 100 Full Face 40 12/21/18 20:00 104 12/21/18 20:00 Bi-pap 12/21/18 20:00 98.8 99 20 130/80 (97) 97 12/21/18 18:54 99 14 100 Full Face 40 12/21/18 17:16 102 14 100 Full Face 40 12/21/18 16:00 101 12/21/18 16:00 Bi-pap 12/21/18 16:00 100.4 100 23 153/75 (101) 100 Intake and Output 12/21/18 12/22/18 19:00 07:00 Intake Total 1079.335 ml 1059.35 ml Output Total 800 ml 400 ml Balance 279.335 ml 659.35 ml Intake IV Total 1079.335 ml 1059.35 ml Output Urine Total 800 ml 400 ml Height (Feet): 5 Height (Inches): 5.00 Weight (Pounds): 176 General Appearance: WD/WN, confused Neck: non-tender Cardiovascular: regular rhythm Respiratory/Chest: lungs clear Abdomen: normal bowel sounds, non tender, soft, no organomegaly Edema: no edema noted Arm (L), no edema noted Arm (R), no edema noted Leg (L), no edema noted Leg (R), no edema noted Pedal (L), no edema noted Pedal (R), no edema noted Generalized Terence Alva MD Dec 22, 2018 15:35
[2018-12-22 16:00] VITALS: BP 146/70
[2018-12-22 20:00] VITALS: BP 138/75
[2018-12-23] VITALS: BP 144/59
[2018-12-23 04:00] VITALS: BP 153/62
[2018-12-23 04:29] LABS: BASOPHILS % (AUTO) 0.7 % (0.0-2.0); EOSINOPHILS % (AUTO) 2.1 % (0.0-3.0); HEMOGLOBIN 13.2 G/DL (12.0-16.0); LYMPHOCYTES % (AUTO) 9.5 % (20.0-45.0); MEAN CORPUSCULAR VOLUME 84 FL (80-99); MONOCYTES % (AUTO) 7.6 % (1.0-10.0); PLATELET COUNT 434 K/UL (150-450); RED BLOOD COUNT 5.12 M/UL (4.20-5.40); RED CELL DISTRIBUTION WIDTH 14.4 % (11.6-14.8); WHITE BLOOD COUNT 15.4 K/UL (4.8-10.8)
[2018-12-23 04:36] LABS: ANION GAP 5 mmol/L (5-15); BLOOD UREA NITROGEN 14 mg/dL (7-18); CALCIUM 8.8 MG/DL (8.5-10.1); CARBON DIOXIDE 33 MMOL/L (21-32); CHLORIDE 107 MMOL/L (98-107); CREATININE 0.7 MG/DL (0.55-1.30); POTASSIUM 4.1 MMOL/L (3.5-5.1); SODIUM 145 MMOL/L (136-145)
[2018-12-23] MEDS: Piperacillin/Tazobactam 3.375 GM in NS 110 ML IVPB SCH ×3 (05:33→22:08)
[2018-12-23] MEDS: NovoLOG Insulin Flexpen SUBQ SCH ×4 (05:35→20:10)
[2018-12-23 08:00] VITALS: BP 138/70
[2018-12-23] MEDS: Heparin 5000 units/ml inj SUBQ SCH ×2 (08:53→20:10)
[2018-12-23] MEDS: GlipiZIDE 5mg tab ORAL SCH (08:54)
[2018-12-23] MEDS: Aspirin EC 81mg tab ORAL SCH (08:54)
[2018-12-23] MEDS: metFORMIN 500mg tab ORAL SCH ×2 (08:54→17:26)
[2018-12-23] MEDS: Losartan 25mg tab ORAL SCH (08:55)
[2018-12-23] MEDS: Haloperidol 5mg/ml Inj IM PRN ×2 (09:06→21:26)
[2018-12-23 12:00] VITALS: BP 116/57
--- NOTE | 2018-12-23 12:07 | General Progress Note ---
Assessment/Plan Problem List: (1) UTI (urinary tract infection) ICD Codes: N39.0 - Urinary tract infection, site not specified SNOMED: 29573933 (2) Status asthmaticus ICD Codes: J45.902 - Unspecified asthma with status asthmaticus SNOMED: 09193711 (3) HTN (hypertension) ICD Codes: I10 - Essential (primary) hypertension SNOMED: 26092806 (4) DM (diabetes mellitus) ICD Codes: E11.9 - Type 2 diabetes mellitus without complications SNOMED: 79854160 Status: stable Assessment/Plan: wean o2 iv abx resp care repeat cxr anxiolytics dvt/stress ulcer prophykaxis resume psych meds Subjective ROS Limited/Unobtainable: No Constitutional: Reports: malaise, weakness HEENT: Reports: no symptoms Cardiovascular: Reports: no symptoms Respiratory: Reports: shortness of breath Gastrointestinal/Abdominal: Reports: no symptoms Genitourinary: Reports: no symptoms Neurologic/Psychiatric: Reports: pre-existing deficit Endocrine: Reports: no symptoms Hematologic/Lymphatic: Reports: no symptoms Allergies: Coded Allergies: NO KNOWN ALLERGIES (Unverified Allergy, Unknown, 09/17/18) All Systems: reviewed and negative except above Subjective on face. confused and agitated. fiance at the bedside. pt has been off psych meds for 6 mos Objective Last 24 Hour Vital Signs Date Time Temp Pulse Resp B/P (MAP) Pulse Ox O2 Delivery O2 Flow Rate FiO2 12/23/18 08:55 138/71 12/23/18 08:03 100 Venturi Mask 40 12/23/18 08:00 Bi-pap 12/23/18 08:00 98.4 93 20 138/70 (92) 100 12/23/18 08:00 92 12/23/18 04:04 93 12/23/18 04:00 98.8 91 14 153/62 (92) 100 12/23/18 04:00 Bi-pap 12/23/18 03:50 82 16 99 Facial 40 12/23/18 01:10 87 18 99 Facial 40 12/23/18 00:00 98.1 95 15 144/59 (87) 100 12/23/18 00:00 Bi-pap 12/22/18 23:44 93 12/22/18 23:32 84 18 98 Facial 40 12/22/18 21:30 78 18 100 Facial 40 12/22/18 20:16 100 Bi-Pap 40 12/22/18 20:00 Bi-pap 12/22/18 20:00 99.0 91 23 138/75 (96) 100 12/22/18 19:07 91 12/22/18 19:00 90 16 100 Facial 40 12/22/18 16:00 100.0 91 15 146/70 (95) 100 12/22/18 16:00 Bi-pap 12/22/18 15:19 97 12/22/18 14:56 95 18 100 Facial 40 12/22/18 12:30 89 17 100 Facial 40 Intake and Output 12/22/18 12/23/18 19:00 07:00 Intake Total 969.63100 ml 831.25 ml Output Total 600 ml Balance 969.71183 ml 231.25 ml Intake IV Total 969.10162 ml 831.25 ml Output Urine Total 600 ml # Voids 3 Laboratory Tests 12/23/18 03:55: White Blood Count 15.4H, Red Blood Count 5.12, Hemoglobin 13.2, Hematocrit 43.0 , Mean Corpuscular Volume 84, Mean Corpuscular Hemoglobin 25.8L, Mean Corpuscular Hemoglobin Concent 30.8L, Red Cell Distribution Width 14.4, Platelet Count 434, Mean Platelet Volume 5.7L, Neutrophils (%) (Auto) 80.0H, Lymphocytes (%) (Auto) 9.5L, Monocytes (%) (Auto) 7.6, Eosinophils (%) (Auto) 2.1, Basophils (%) (Auto) 0.7, Sodium Level 145, Potassium Level 4.1, Chloride Level 107, Carbon Dioxide Level 33H, Anion Gap 5, Blood Urea Nitrogen 14, Creatinine 0.7, Estimat Glomerular Filtration Rate > 60, Glucose Level 91, Calcium Level 8.8 Height (Feet): 5 Height (Inches): 5.00 Weight (Pounds): 176 General Appearance: WD/WN, alert Neck: supple Cardiovascular: normal rate Respiratory/Chest: chest wall non-tender, lungs clear, normal breath sounds Abdomen: normal bowel sounds, non tender, soft, no organomegaly Edema: no edema noted Arm (L), no edema noted Arm (R), no edema noted Leg (L), no edema noted Leg (R), no edema noted Pedal (L), no edema noted Pedal (R), no edema noted 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
[2018-12-23] MEDS: LORazepam Inj 2mg/ml 1ml IV PRN (15:43)
[2018-12-23 16:00] VITALS: BP 151/76
--- NOTE | 2018-12-23 16:56 | Diagnostic Imaging Report ---
Indication: Dyspnea Comparison: 12/20/2018 A single view chest radiograph was obtained. Findings: There is mild pulmonary vascular congestion within the lungs with cardiomegaly present. Bones are unremarkable. IMPRESSION: Query mild pulmonary vascular congestion
[2018-12-23 20:00] VITALS: BP 149/80
[2018-12-24] VITALS: BP 125/59
[2018-12-24 04:00] VITALS: BP 133/74
[2018-12-24] MEDS: Piperacillin/Tazobactam 3.375 GM in NS 110 ML IVPB SCH ×3 (06:17→22:01)
[2018-12-24] MEDS: NovoLOG Insulin Flexpen SUBQ SCH ×5 (06:30→21:52)
[2018-12-24 08:00] VITALS: BP 138/66
[2018-12-24] MEDS: GlipiZIDE 5mg tab ORAL SCH (08:24)
[2018-12-24] MEDS: metFORMIN 500mg tab ORAL SCH ×2 (08:25→17:33)
[2018-12-24] MEDS: Losartan 25mg tab ORAL SCH (08:25)
[2018-12-24] MEDS: Aspirin EC 81mg tab ORAL SCH (08:25)
[2018-12-24] MEDS: Heparin 5000 units/ml inj SUBQ SCH ×2 (08:26→22:03)
[2018-12-24] MEDS: LORazepam Inj 2mg/ml 1ml IV PRN (09:33)
[2018-12-24 12:00] VITALS: BP 128/65
--- NOTE | 2018-12-24 15:21 | General Progress Note ---
Assessment/Plan Problem List: (1) UTI (urinary tract infection) ICD Codes: N39.0 - Urinary tract infection, site not specified SNOMED: 86154114 (2) Status asthmaticus ICD Codes: J45.902 - Unspecified asthma with status asthmaticus SNOMED: 31664430 (3) HTN (hypertension) ICD Codes: I10 - Essential (primary) hypertension SNOMED: 35856817 (4) DM (diabetes mellitus) ICD Codes: E11.9 - Type 2 diabetes mellitus without complications SNOMED: 72823354 Status: stable Assessment/Plan: wean o2 iv abx resp care iv lasix anxiolytics dvt/stress ulcer prophykaxis psych rx Subjective ROS Limited/Unobtainable: Yes Constitutional: Reports: malaise, weakness HEENT: Reports: no symptoms Cardiovascular: Reports: no symptoms Respiratory: Reports: shortness of breath Gastrointestinal/Abdominal: Reports: no symptoms Genitourinary: Reports: no symptoms Neurologic/Psychiatric: Reports: anxiety, emotional problems, pre-existing deficit Endocrine: Reports: no symptoms Hematologic/Lymphatic: Reports: anemia Allergies: Coded Allergies: NO KNOWN ALLERGIES (Unverified Allergy, Unknown, 09/17/18) All Systems: reviewed and negative except above Subjective same. on bipap. remains confused and intermittently agitated. cxr with chf? Objective Last 24 Hour Vital Signs Date Time Temp Pulse Resp B/P (MAP) Pulse Ox O2 Delivery O2 Flow Rate FiO2 12/24/18 12:00 87 12/24/18 12:00 Bi-pap 12/24/18 12:00 97.9 83 21 128/65 (86) 100 12/24/18 08:25 138/66 12/24/18 08:00 79 12/24/18 08:00 Bi-pap 12/24/18 08:00 98.0 86 20 138/66 (90) 98 12/24/18 07:13 100 Venturi Mask 40 12/24/18 04:00 98.1 82 21 133/74 (93) 100 12/24/18 04:00 Bi-pap 12/24/18 03:58 86 12/24/18 01:20 97 26 100 Facial 40 12/24/18 00:00 98.2 96 22 125/59 (81) 100 12/24/18 00:00 Bi-pap 11/14/19 23:58 96 12/23/18 23:10 94 26 100 Facial 40 12/23/18 21:15 100 16 100 Facial 40 12/23/18 20:00 98.1 94 24 149/80 (103) 100 12/23/18 20:00 Bi-pap 12/23/18 19:55 95 12/23/18 19:00 100 Venturi Mask 40 12/23/18 16:00 86 12/23/18 16:00 97.7 91 21 151/76 (101) 100 12/23/18 16:00 Bi-pap Intake and Output 12/23/18 12/24/18 19:00 07:00 Intake Total 750 ml 750 ml Output Total 600 ml 500 ml Balance 150 ml 250 ml Intake IV Total 750 ml 750 ml Output Urine Total 600 ml 500 ml Height (Feet): 5 Height (Inches): 5.00 Weight (Pounds): 176 Objective General Appearance: WD/WN, alert Neck: supple Cardiovascular: normal rate Respiratory/Chest: chest wall non-tender, lungs clear, normal breath sounds Abdomen: normal bowel sounds, non tender, soft, no organomegaly Edema: no edema noted Arm (L), no edema noted Arm (R), no edema noted Leg (L), no edema noted Leg (R), no edema noted Pedal (L), no edema noted Pedal (R), no edema noted 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
[2018-12-24 15:59] VITALS: BP 103/55
[2018-12-24 20:00] VITALS: BP 141/82
[2018-12-25] VITALS (7 sets, daily range): BP systolic 114–135; BP diastolic 54–87
[2018-12-25] MEDS: NovoLOG Insulin Flexpen SUBQ SCH ×4 (05:54→21:20)
[2018-12-25] MEDS: Piperacillin/Tazobactam 3.375 GM in NS 110 ML IVPB SCH (05:54)
[2018-12-25] MEDS: Haloperidol 5mg/ml Inj IM PRN (08:20)
[2018-12-25] MEDS: GlipiZIDE 5mg tab ORAL SCH (08:33)
[2018-12-25] MEDS: Aspirin EC 81mg tab ORAL SCH (08:33)
[2018-12-25] MEDS: Losartan 25mg tab ORAL SCH (08:34)
[2018-12-25] MEDS: metFORMIN 500mg tab ORAL SCH ×2 (08:34→17:40)
[2018-12-25] MEDS: Heparin 5000 units/ml inj SUBQ SCH ×2 (08:40→21:20)
--- NOTE | 2018-12-25 10:04 | General Progress Note ---
Assessment/Plan Problem List: (1) UTI (urinary tract infection) ICD Codes: N39.0 - Urinary tract infection, site not specified SNOMED: 17329696 (2) Status asthmaticus ICD Codes: J45.902 - Unspecified asthma with status asthmaticus SNOMED: 18355416 (3) HTN (hypertension) ICD Codes: I10 - Essential (primary) hypertension SNOMED: 82569388 (4) DM (diabetes mellitus) ICD Codes: E11.9 - Type 2 diabetes mellitus without complications SNOMED: 65989035 Status: stable Assessment/Plan: psych rx o2 prn and resp rx prn dc lasix medically stable to transfer to psych Subjective ROS Limited/Unobtainable: Yes Constitutional: Reports: no symptoms HEENT: Reports: no symptoms Cardiovascular: Reports: no symptoms Respiratory: Reports: no symptoms Genitourinary: Reports: no symptoms Neurologic/Psychiatric: Reports: anxiety, depressed, emotional problems Endocrine: Reports: no symptoms Hematologic/Lymphatic: Reports: no symptoms Allergies: Coded Allergies: NO KNOWN ALLERGIES (Unverified Allergy, Unknown, 09/17/18) All Systems: reviewed and negative except above Subjective stable off bipap o2 sats normal on room air very agitated and aggressive Objective Last 24 Hour Vital Signs Date Time Temp Pulse Resp B/P (MAP) Pulse Ox O2 Delivery O2 Flow Rate FiO2 12/25/18 08:34 135/81 12/25/18 07:05 96 Room Air 12/25/18 04:00 Room Air 12/25/18 04:00 98.2 79 19 117/54 (75) 98 12/25/18 00:00 Bi-pap 12/25/18 00:00 97.6 85 20 123/72 (89) 96 12/24/18 20:00 98.4 91 20 141/82 (101) 96 12/24/18 20:00 Bi-pap 12/24/18 19:13 97 Room Air 21 12/24/18 16:00 Bi-pap 12/24/18 16:00 87 12/24/18 15:59 98.1 86 21 103/55 (71) 97 12/24/18 12:00 87 12/24/18 12:00 Bi-pap 12/24/18 12:00 97.9 83 21 128/65 (86) 100 Intake and Output 12/24/18 12/25/18 18:59 06:59 Intake Total 480 ml 1212.5 ml Output Total 352 ml Balance 128 ml 1212.5 ml Intake Oral 480 ml 1000 ml IV Total 212.5 ml Output Urine Total 352 ml # Voids 3 4 # Bowel Movements 2 3 Height (Feet): 5 Height (Inches): 5.00 Weight (Pounds): 176 Objective General Appearance: WD/WN, alert/agitated Neck: supple Cardiovascular: normal rate Respiratory/Chest: chest wall non-tender, lungs clear, normal breath sounds Abdomen: normal bowel sounds, non tender, soft, no organomegaly Edema: no edema noted Arm (L), no edema noted Arm (R), no edema noted Leg (L), no edema noted Leg (R), no edema noted Pedal (L), no edema noted Pedal (R), no edema noted 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
--- NOTE | 2018-12-25 14:40 | Cardiology Report ---
APPROVED REPORT EKG Measurement Heart [id number] CT [id number] Normal sinus rhythm Possible Left atrial enlargement Borderline ECG
[2018-12-25] MEDS ORDERED: Tubing IV Secondary IV ONE (16:30)
[2018-12-25] MEDS: LORazepam Inj 2mg/ml 1ml IV PRN (20:03)
--- NOTE | 2018-12-25 20:44 | Diagnostic Imaging Report ---
APPROVED REPORT CPT Code: 53185 Present Symptoms Shortness of breath BILATERAL: Imaging reveals a patent deep venous system bilaterally. There is no evidence of thrombus within the common femoral, superficial femoral, popliteal or tibial segments. The greater saphenous veins are within normal limits. Doppler indicates normal spontaneous flow within these segments.
[2018-12-26 04:00] VITALS: BP 128/82
[2018-12-26] MEDS: LORazepam Inj 2mg/ml 1ml IV PRN ×3 (04:25→21:04)
[2018-12-26] MEDS: NovoLOG Insulin Flexpen SUBQ SCH ×4 (05:35→20:17)
[2018-12-26 08:00] VITALS: BP 125/65
--- NOTE | 2018-12-26 08:09 | General Progress Note ---
Assessment/Plan Problem List: (1) UTI (urinary tract infection) ICD Codes: N39.0 - Urinary tract infection, site not specified SNOMED: 21965211 (2) Status asthmaticus ICD Codes: J45.902 - Unspecified asthma with status asthmaticus SNOMED: 53975351 (3) HTN (hypertension) ICD Codes: I10 - Essential (primary) hypertension SNOMED: 74005193 (4) DM (diabetes mellitus) ICD Codes: E11.9 - Type 2 diabetes mellitus without complications SNOMED: 78824113 Status: stable Assessment/Plan: psych rx o2 prn and resp rx prn dc lasix repeat labs medically stable to transfer to psych Subjective ROS Limited/Unobtainable: No Constitutional: Reports: malaise, weakness HEENT: Reports: no symptoms Cardiovascular: Reports: no symptoms Respiratory: Reports: no symptoms Gastrointestinal/Abdominal: Reports: no symptoms Genitourinary: Reports: no symptoms Neurologic/Psychiatric: Reports: anxiety, emotional problems Endocrine: Reports: no symptoms Allergies: Coded Allergies: NO KNOWN ALLERGIES (Unverified Allergy, Unknown, 09/17/18) All Systems: reviewed and negative except above Subjective no events o2 sats normal on room air very agitated and aggressive Objective Last 24 Hour Vital Signs Date Time Temp Pulse Resp B/P (MAP) Pulse Ox O2 Delivery O2 Flow Rate FiO2 12/26/18 04:00 97.0 90 21 128/82 (97) 98 12/25/18 23:40 97.4 97 22 114/61 (78) 96 12/25/18 20:25 Room Air 12/25/18 20:17 97.9 100 21 132/87 (102) 97 12/25/18 19:49 97 Room Air 21 12/25/18 16:00 99.1 95 16 116/81 (93) 99 12/25/18 12:00 97.5 89 14 130/79 (96) 98 12/25/18 09:00 Room Air 12/25/18 08:34 135/81 Intake and Output 12/25/18 12/26/18 19:00 07:00 Intake Total 920 ml 920 ml Output Total 6 ml Balance 914 ml 920 ml Intake Oral 920 ml 920 ml Output Urine Total 6 ml # Voids 3 # Bowel Movements 1 2 Height (Feet): 5 Height (Inches): 5.00 Weight (Pounds): 176 Objective General Appearance: WD/WN, alert/agitated Neck: supple Cardiovascular: normal rate Respiratory/Chest: chest wall non-tender, lungs clear, normal breath sounds Abdomen: normal bowel sounds, non tender, soft, no organomegaly Edema: no edema noted Arm (L), no edema noted Arm (R), no edema noted Leg (L), no edema noted Leg (R), no edema noted Pedal (L), no edema noted Pedal (R), no edema noted 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
[2018-12-26 08:54] LABS: BASOPHILS % (AUTO) 0.7 % (0.0-2.0); EOSINOPHILS % (AUTO) 5.7 % (0.0-3.0); HEMATOCRIT 46.2 % (37.0-47.0); HEMOGLOBIN 14.8 G/DL (12.0-16.0); LYMPHOCYTES % (AUTO) 14.9 % (20.0-45.0); MEAN CORPUSCULAR VOLUME 81 FL (80-99); MONOCYTES % (AUTO) 7.8 % (1.0-10.0); PLATELET COUNT 515 K/UL (150-450); RED BLOOD COUNT 5.69 M/UL (4.20-5.40); RED CELL DISTRIBUTION WIDTH 13.6 % (11.6-14.8); WHITE BLOOD COUNT 10.3 K/UL (4.8-10.8)
[2018-12-26 09:09] LABS: ALANINE AMINOTRANSFERASE 19 U/L (12-78); ALBUMIN 2.7 G/DL (3.4-5.0); ALBUMIN/GLOBULIN RATIO 0.5 (1.0-2.7); ALKALINE PHOSPHATASE 123 U/L (46-116); ANION GAP -2 mmol/L (5-15); ASPARTATE AMINO TRANSFERASE 22 U/L (15-37); BILIRUBIN,TOTAL 0.4 MG/DL (0.2-1.0); BLOOD UREA NITROGEN 16 mg/dL (7-18); CALCIUM 9.2 MG/DL (8.5-10.1); CARBON DIOXIDE 39 MMOL/L (21-32); CHLORIDE 97 MMOL/L (98-107); CREATININE 0.8 MG/DL (0.55-1.30); POTASSIUM 3.1 MMOL/L (3.5-5.1); SODIUM 134 MMOL/L (136-145)
[2018-12-26] MEDS: GlipiZIDE 5mg tab ORAL SCH (09:38)
[2018-12-26] MEDS: metFORMIN 500mg tab ORAL SCH ×2 (09:39→17:05)
[2018-12-26] MEDS: Losartan 25mg tab ORAL SCH (09:39)
[2018-12-26] MEDS: Aspirin EC 81mg tab ORAL SCH (09:40)
[2018-12-26] MEDS: Heparin 5000 units/ml inj SUBQ SCH ×2 (09:41→20:18)
[2018-12-26] MEDS ORDERED: NS 275ml ONE (10:26)
[2018-12-26 11:53] VITALS: BP 131/77
[2018-12-26 16:00] VITALS: BP 129/77
[2018-12-26 20:00] VITALS: BP 129/72
[2018-12-27 00:11] VITALS: BP 132/75
[2018-12-27] MEDS: LORazepam Inj 2mg/ml 1ml IV PRN ×3 (01:45→15:54)
[2018-12-27 04:00] VITALS: BP 130/58
[2018-12-27] MEDS: NovoLOG Insulin Flexpen SUBQ SCH ×4 (06:03→21:00)
[2018-12-27 08:00] VITALS: BP 124/60
[2018-12-27 10:31] LABS: EOSINOPHILS % (AUTO) 1.3 % (0.0-3.0); HEMATOCRIT 43.1 % (37.0-47.0); LYMPHOCYTES % (AUTO) 10.5 % (20.0-45.0); MEAN CORPUSCULAR VOLUME 82 FL (80-99); MONOCYTES % (AUTO) 6.1 % (1.0-10.0); PLATELET COUNT 527 K/UL (150-450); RED BLOOD COUNT 5.25 M/UL (4.20-5.40); RED CELL DISTRIBUTION WIDTH 12.4 % (11.6-14.8); WHITE BLOOD COUNT 17.3 K/UL (4.8-10.8)
[2018-12-27] MEDS: metFORMIN 500mg tab ORAL SCH ×2 (10:33→17:09)
[2018-12-27 10:34] LABS: ANION GAP 4 mmol/L (5-15); BLOOD UREA NITROGEN 17 mg/dL (7-18); CALCIUM 9.9 MG/DL (8.5-10.1); CARBON DIOXIDE 38 MMOL/L (21-32); CHLORIDE 102 MMOL/L (98-107); CREATININE 0.8 MG/DL (0.55-1.30); POTASSIUM 3.8 MMOL/L (3.5-5.1); SODIUM 144 MMOL/L (136-145)
[2018-12-27] MEDS: GlipiZIDE 5mg tab ORAL SCH (10:34)
[2018-12-27] MEDS: Aspirin EC 81mg tab ORAL SCH (10:34)
[2018-12-27] MEDS: Losartan 25mg tab ORAL SCH (10:34)
[2018-12-27] MEDS: Heparin 5000 units/ml inj SUBQ SCH ×2 (11:24→21:00)
[2018-12-27 11:57] VITALS: BP 127/69
--- NOTE | 2018-12-27 15:06 | Diagnostic Imaging Report ---
Indication: Chest pain Technique: One view of the chest Comparison: 12/23/2018 Findings: Lungs and pleural spaces are clear. The heart size is upper limits normal. There is no significant interim change Impression: Negative
[2018-12-27 16:00] VITALS: BP 121/79
[2018-12-27] MEDS: Haloperidol 5mg/ml Inj IM PRN (18:19)
[2018-12-27 20:00] VITALS: BP 124/72
[2018-12-28] VITALS: BP 108/71
[2018-12-28] MEDS: LORazepam Inj 2mg/ml 1ml IV PRN (00:02)
[2018-12-28 02:08] LABS: APPEARANCE,URINE CLEAR; BILIRUBIN, URINE NEGATIVE (NEGATIVE); GLUCOSE, URINE (UA) NEGATIVE (NEGATIVE); KETONES,URINE NEGATIVE (NEGATIVE); LEUKOCYTE ESTERASE ,URINE NEGATIVE (NEGATIVE); NITRITE,URINE NEGATIVE (NEGATIVE); PH,URINE 6 (4.5-8.0); PROTEIN,URINE 2+ (NEGATIVE); UROBILINOGEN,URINE NORMAL MG/DL (0.0-1.0)
[2018-12-28 02:20] LABS: COLOR,URINE YELLOW
[2018-12-28 04:00] VITALS: BP 114/68
[2018-12-28] MEDS: NovoLOG Insulin Flexpen SUBQ SCH ×4 (05:44→21:51)
[2018-12-28 08:00] VITALS: BP 124/73
[2018-12-28] MEDS: Aspirin EC 81mg tab ORAL SCH (08:25)
[2018-12-28] MEDS: GlipiZIDE 5mg tab ORAL SCH (08:25)
[2018-12-28] MEDS: metFORMIN 500mg tab ORAL SCH ×2 (08:25→17:29)
[2018-12-28] MEDS: Losartan 25mg tab ORAL SCH (08:25)
[2018-12-28] MEDS: Heparin 5000 units/ml inj SUBQ SCH ×2 (08:27→20:40)
--- NOTE | 2018-12-28 09:54 | General Progress Note ---
Assessment/Plan Problem List: (1) UTI (urinary tract infection) ICD Codes: N39.0 - Urinary tract infection, site not specified SNOMED: 80886224 (2) Status asthmaticus ICD Codes: J45.902 - Unspecified asthma with status asthmaticus SNOMED: 12354109 (3) HTN (hypertension) ICD Codes: I10 - Essential (primary) hypertension SNOMED: 53244628 (4) DM (diabetes mellitus) ICD Codes: E11.9 - Type 2 diabetes mellitus without complications SNOMED: 10445297 Status: stable Assessment/Plan: psych rx o2 prn and resp rx prn dc lasix repeat labs medically stable to transfer to psych Subjective ROS Limited/Unobtainable: No Constitutional: Reports: malaise, weakness HEENT: Reports: no symptoms Cardiovascular: Reports: no symptoms Respiratory: Reports: no symptoms Gastrointestinal/Abdominal: Reports: no symptoms Genitourinary: Reports: no symptoms Neurologic/Psychiatric: Reports: anxiety, depressed, emotional problems, pre- existing deficit Endocrine: Reports: no symptoms Hematologic/Lymphatic: Reports: no symptoms Allergies: Coded Allergies: NO KNOWN ALLERGIES (Unverified Allergy, Unknown, 09/17/18) All Systems: reviewed and negative except above Subjective no events o2 sats normal on room air very agitated and aggressive elevated wbc- UA and cxr negative. nontoxic appearing Objective Last 24 Hour Vital Signs Date Time Temp Pulse Resp B/P (MAP) Pulse Ox O2 Delivery O2 Flow Rate FiO2 12/28/18 09:18 95 Room Air 21 12/28/18 08:25 124/73 12/28/18 08:00 98.1 83 22 124/73 (90) 93 12/28/18 04:00 98.3 91 19 114/68 (83) 98 12/28/18 00:45 Room Air 12/28/18 00:24 94 20 96 12/28/18 00:00 98.7 91 20 108/71 (83) 98 12/27/18 23:00 Room Air 12/27/18 22:52 97 16 98 Facial 30 12/27/18 22:52 97 Bi-Pap 30 12/27/18 20:00 98.8 88 20 124/72 (89) 97 12/27/18 16:00 98.0 76 20 121/79 (93) 97 11/18/19 11:57 98.0 89 18 127/69 (88) 98 12/27/18 10:34 124/60 Intake and Output 12/27/18 12/28/18 19:00 07:00 Intake Total 500 ml 250 ml Balance 500 ml 250 ml Intake Oral 250 ml Other 500 ml # Voids 2 Laboratory Tests 12/28/18 01:00: Urine Color Yellow, Urine Appearance Clear, Urine pH 6, Urine Specific Harmony 1.015, Urine Protein 2+H, Urine Glucose (UA) Negative, Urine Ketones Negative, Urine Blood 2+H, Urine Nitrite Negative, Urine Bilirubin Negative, Urine Urobilinogen Normal, Urine Leukocyte Esterase Negative, Urine RBC 2-4H, Urine WBC 2-4, Urine Squamous Epithelial Cells Few, Urine Bacteria Few Height (Feet): 5 Height (Inches): 4.00 Weight (Pounds): 173 Objective General Appearance: WD/WN, alert/agitated Neck: supple Cardiovascular: normal rate Respiratory/Chest: chest wall non-tender, lungs clear, normal breath sounds Abdomen: normal bowel sounds, non tender, soft, no organomegaly Edema: no edema noted Arm (L), no edema noted Arm (R), no edema noted Leg (L), no edema noted Leg (R), no edema noted Pedal (L), no edema noted Pedal (R), no edema noted 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
--- NOTE | 2018-12-28 09:55 | CDS Physician Query ---
Clarification is required for compliance, coding accuracy, and to reflect severity of illness for this patient. Dear Dr. Terence Alva Date: 12/28/2018 CDS name: Ena Mcfarland Clinical Documentation states: HNP: 63-year-old female with a history of hypertension and diabetes, admitted with complaints of altered mental status, suspect secondary to UTI and early sepsis. Labs and vitals on admission: WBC 14, HR 102, RR 20, Temp 97.3 Treatment: IV pip-tazo 12/20 to 12/25, IV ceftriaxone 12/20 A possible diagnosis of sepsis was made in the medical record on 12/20. Upon review, it is difficult to determine whether this diagnosis has been ruled in, ruled out,or is still being worked up. Please indicate below the status of the aforementioned diagnosis. [] Treated and resolve [] Presumed and treated [x] Currently under treatment [x] Still being worked-up [] Ruled out Present on Admission: [x] Yes [] No [] Clinically Undetermined Physician signature Date Please also document in your Progress Notes and/or Discharge Summary and indicate if the condition was present on admission. FREDOD
[2018-12-28] MEDS ORDERED: LORazepam Inj 2mg/ml 1ml IV PRN (10:00)
[2018-12-28] MEDS: Haloperidol 5mg/ml Inj IM PRN ×2 (10:05→20:39)
[2018-12-28 10:49] LABS: BASOPHILS % (AUTO) 1.2 % (0.0-2.0); EOSINOPHILS % (AUTO) 4.1 % (0.0-3.0); HEMATOCRIT 40.4 % (37.0-47.0); HEMOGLOBIN 12.9 G/DL (12.0-16.0); LYMPHOCYTES % (AUTO) 13.9 % (20.0-45.0); MEAN CORPUSCULAR VOLUME 81 FL (80-99); NEUTROPHILS % (AUTO) 75.9 % (45.0-75.0); PLATELET COUNT 470 K/UL (150-450); RED BLOOD COUNT 4.97 M/UL (4.20-5.40); RED CELL DISTRIBUTION WIDTH 12.6 % (11.6-14.8); WHITE BLOOD COUNT 14.8 K/UL (4.8-10.8)
[2018-12-28 11:49] VITALS: BP 121/60
[2018-12-28 12:07] LABS: ALANINE AMINOTRANSFERASE 27 U/L (12-78); ALBUMIN 2.5 G/DL (3.4-5.0); ALBUMIN/GLOBULIN RATIO 0.5 (1.0-2.7); ALKALINE PHOSPHATASE 117 U/L (46-116); ANION GAP 3 mmol/L (5-15); ASPARTATE AMINO TRANSFERASE 31 U/L (15-37); BILIRUBIN,TOTAL 0.3 MG/DL (0.2-1.0); BLOOD UREA NITROGEN 18 mg/dL (7-18); CALCIUM 9.3 MG/DL (8.5-10.1); CARBON DIOXIDE 34 MMOL/L (21-32); CHLORIDE 99 MMOL/L (98-107); CREATININE 0.8 MG/DL (0.55-1.30); POTASSIUM 3.8 MMOL/L (3.5-5.1); SODIUM 136 MMOL/L (136-145)
[2018-12-28] MEDS ORDERED: LORazepam 1mg tab ORAL PRN (13:30)
[2018-12-28] MEDS ORDERED: FLUPHENAZINE DECANOATE 25 MG/ML IM SCH (15:00)
[2018-12-28 16:00] VITALS: BP 121/78
--- NOTE | 2018-12-28 17:45 | Consultation ---
DATE OF CONSULTATION: 12/28/2018 CONSULTING PHYSICIAN: Jonathan Hopkins M.D. HISTORY OF PRESENT ILLNESS: This is a 63-year-old female with a history of psychiatric disorder, most likely schizophrenia who has been admitted to the hospital for confusion and altered mental status. The patient has a history of diabetes and hypertension. The patient is yelling and screaming. The patient is confused, disoriented, delusional. Unable to provide any history. The patient is having memory impairment. PAST PSYCHIATRIC HISTORY: Most likely schizophrenia, unable to gather any information. PAST MEDICAL HISTORY: Hypertension, diabetes. ALLERGIES: No known drug allergies. SUBSTANCE ABUSE HISTORY: No known history of illicit drug use or alcohol. MENTAL STATUS EXAMINATION: The patient is alert, disoriented. Mood is agitated. Affect is flat. Thought process is disorganized. Thought content, no suicidal or homicidal ideation. ASSESSMENT: Whitethorn I Schizophrenia. Whitethorn II Deferred. Whit[place]orn III Hypertension and diabetes. Whitethorn IV Low. Whitethorn V 20. PLAN: 1. We will start the patient on risperidone. 2. Fluphenazine Decanoate. 3. Ativan p.r.n. 4. We will continue to follow and readjust the medications. Jonathan Hopkins M.D. DR: BUDDY JOB#: [id number] CC:
[2018-12-28 20:00] VITALS: BP 136/76
[2018-12-28] MEDS ORDERED: Haloperidol 5mg/ml Inj IM ONE (22:45)
[2018-12-28] MEDS ORDERED: DiphenhydrAMINE 50mg/ml Inj IM ONE (22:45)
[2018-12-29] VITALS: BP 115/65
[2018-12-29 04:00] VITALS: BP 120/70
[2018-12-29] MEDS: NovoLOG Insulin Flexpen SUBQ SCH ×4 (06:28→21:05)
[2018-12-29 08:00] VITALS: BP 142/80
[2018-12-29] MEDS: Aspirin EC 81mg tab ORAL SCH (08:06)
[2018-12-29] MEDS: GlipiZIDE 5mg tab ORAL SCH (08:06)
[2018-12-29] MEDS: metFORMIN 500mg tab ORAL SCH ×2 (08:07→17:05)
[2018-12-29] MEDS: Losartan 25mg tab ORAL SCH (08:07)
[2018-12-29] MEDS: Heparin 5000 units/ml inj SUBQ SCH ×2 (08:09→21:04)
--- NOTE | 2018-12-29 08:10 | General Progress Note ---
Assessment/Plan Problem List: (1) UTI (urinary tract infection) ICD Codes: N39.0 - Urinary tract infection, site not specified SNOMED: 12672903 (2) Status asthmaticus ICD Codes: J45.902 - Unspecified asthma with status asthmaticus SNOMED: 99626227 (3) HTN (hypertension) ICD Codes: I10 - Essential (primary) hypertension SNOMED: 07948280 (4) DM (diabetes mellitus) ICD Codes: E11.9 - Type 2 diabetes mellitus without complications SNOMED: 51624040 Status: stable Assessment/Plan: psych rx o2 prn and resp rx prn monitor labs medically stable to transfer to psych Subjective Allergies: Coded Allergies: NO KNOWN ALLERGIES (Unverified Allergy, Unknown, 09/17/18) Subjective no events o2 sats normal on room air very agitated and aggressive elevated wbc- UA and cxr negative. nontoxic appearing wbc down Objective Last 24 Hour Vital Signs Date Time Temp Pulse Resp B/P (MAP) Pulse Ox O2 Delivery O2 Flow Rate FiO2 12/29/18 04:00 97.6 80 16 120/70 (87) 96 12/29/18 00:00 99.1 87 17 115/65 (82) 94 12/28/18 21:00 Room Air 12/28/18 20:00 98.6 88 18 136/76 (96) 94 12/28/18 19:56 96 Room Air 21 12/28/18 16:00 98.8 87 17 121/78 (92) 94 12/28/18 11:50 21 12/28/18 11:49 98.8 77 28 121/60 (80) 97 12/28/18 09:18 95 Room Air 21 12/28/18 08:25 124/73 Intake and Output 12/28/18 12/29/18 19:00 07:00 Intake Total 1010 ml 585 ml Balance 1010 ml 585 ml Intake Oral 360 ml IV Total 650 ml 585 ml # Voids 5 3 # Bowel Movements 1 Laboratory Tests 12/28/18 10:20: White Blood Count 14.8H, Red Blood Count 4.97, Hemoglobin 12.9, Hematocrit 40.4 , Mean Corpuscular Volume 81, Mean Corpuscular Hemoglobin 25.9L, Mean Corpuscular Hemoglobin Concent 31.8L, Red Cell Distribution Width 12.6, Platelet Count 470H, Mean Platelet Volume 6.3L, Neutrophils (%) (Auto) 75.9H, Lymphocytes (%) (Auto) 13.9L, Monocytes (%) (Auto) 5.0, Eosinophils (%) (Auto) 4.1H, Basophils (%) (Auto) 1.2, Sodium Level 136, Potassium Level 3.8, Chloride Level 99, Carbon Dioxide Level 34H, Anion Gap 3L, Blood Urea Nitrogen 18, Creatinine 0.8, Estimat Glomerular Filtration Rate > 60, Glucose Level 150H, Calcium Level 9.3, Total Bilirubin 0.3, Aspartate Amino Transf (AST/SGOT) 31, Alanine Aminotransferase (ALT/SGPT) 27, Alkaline Phosphatase 117H, Total Protein 7.7, Albumin 2.5L, Globulin 5.2, Albumin/Globulin Ratio 0.5L Height (Feet): 5 Height (Inches): 4.00 Weight (Pounds): 174 Objective General Appearance: WD/WN, alert/agitated Neck: supple Cardiovascular: normal rate Respiratory/Chest: chest wall non-tender, lungs clear, normal breath sounds Abdomen: normal bowel sounds, non tender, soft, no organomegaly Edema: no edema noted Arm (L), no edema noted Arm (R), no edema noted Leg (L), no edema noted Leg (R), no edema noted Pedal (L), no edema noted Pedal (R), no edema noted 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
[2018-12-29 09:27] LABS: BASOPHILS % (AUTO) 0.7 % (0.0-2.0); HEMATOCRIT 41.1 % (37.0-47.0); LYMPHOCYTES % (AUTO) 15.1 % (20.0-45.0); MEAN CORPUSCULAR VOLUME 81 FL (80-99); MONOCYTES % (AUTO) 6.1 % (1.0-10.0); PLATELET COUNT 503 K/UL (150-450); RED BLOOD COUNT 5.06 M/UL (4.20-5.40); RED CELL DISTRIBUTION WIDTH 13.6 % (11.6-14.8)
[2018-12-29 12:39] VITALS: BP 121/57
[2018-12-29] MEDS ORDERED: LORazepam Inj 2mg/ml 1ml IM PRN (15:46)
[2018-12-29 16:00] VITALS: BP 137/73
[2018-12-29 20:00] VITALS: BP 144/79
--- NOTE | 2018-12-29 22:15 | Progress Note ---
DATE: 12/29/2018 SUBJECTIVE: The patient is yelling and screaming, presents with disorganized speech and behavior, responding to internal stimuli. The patient has been refusing some of the medication. The patient is unable to understand, process, and communicate rationally. The patient is medication. MENTAL STATUS EXAMINATION: The patient is alert and oriented times to self. Mood is agitated. Affect is flat. Thought process is disorganized. Thought content, no suicidal or homicidal ideation. ASSESSMENT: Schizophrenia. PLAN: 1. We will increase risperidone 2 mg at bedtime. 2. The patient lacks capacity to make decision. Jonathan Hopkins M.D. DR: FERNANDEZ JOB#: [id number] CC: TREVOR
[2018-12-30] VITALS: BP 146/83
[2018-12-30 04:00] VITALS: BP 137/72
[2018-12-30] MEDS: NovoLOG Insulin Flexpen SUBQ SCH ×4 (06:24→20:20)
[2018-12-30 08:00] VITALS: BP 151/84
[2018-12-30] MEDS: GlipiZIDE 5mg tab ORAL SCH (08:33)
[2018-12-30] MEDS: Losartan 25mg tab ORAL SCH (08:35)
[2018-12-30] MEDS: Aspirin EC 81mg tab ORAL SCH (08:35)
[2018-12-30] MEDS: metFORMIN 500mg tab ORAL SCH ×2 (08:35→18:34)
[2018-12-30] MEDS: Heparin 5000 units/ml inj SUBQ SCH (08:36)
[2018-12-30 12:00] VITALS: BP 134/85
--- NOTE | 2018-12-30 13:54 | General Progress Note ---
Assessment/Plan Problem List: (1) UTI (urinary tract infection) ICD Codes: N39.0 - Urinary tract infection, site not specified SNOMED: 79211390 (2) Status asthmaticus ICD Codes: J45.902 - Unspecified asthma with status asthmaticus SNOMED: 24674790 (3) HTN (hypertension) ICD Codes: I10 - Essential (primary) hypertension SNOMED: 67569403 (4) DM (diabetes mellitus) ICD Codes: E11.9 - Type 2 diabetes mellitus without complications SNOMED: 88752474 Status: stable, progressing Assessment/Plan: psych rx o2 prn and resp rx prn monitor labs medically stable to transfer to psych Subjective ROS Limited/Unobtainable: Yes Constitutional: Reports: weakness HEENT: Reports: no symptoms Cardiovascular: Reports: no symptoms Respiratory: Reports: no symptoms Gastrointestinal/Abdominal: Reports: no symptoms Neurologic/Psychiatric: Reports: anxiety, emotional problems, pre-existing deficit Endocrine: Reports: no symptoms Hematologic/Lymphatic: Reports: no symptoms Allergies: Coded Allergies: NO KNOWN ALLERGIES (Unverified Allergy, Unknown, 09/17/18) All Systems: reviewed and negative except above Subjective no events. wbc trending down. no fever or chills. less agitated. Objective Last 24 Hour Vital Signs Date Time Temp Pulse Resp B/P (MAP) Pulse Ox O2 Delivery O2 Flow Rate FiO2 12/30/18 12:00 97.8 89 18 134/85 (101) 94 12/30/18 11:32 96 Room Air 21 12/30/18 09:00 Room Air 12/30/18 08:35 151/84 12/30/18 08:00 98.3 95 18 151/84 (106) 94 12/30/18 04:00 97.4 89 18 137/72 (93) 95 12/30/18 00:00 97.0 104 20 146/83 (104) 96 12/29/18 21:00 Room Air 12/29/18 20:00 95 Room Air 21 12/29/18 20:00 97.9 105 18 144/79 (100) 95 12/29/18 16:00 99.1 89 18 137/73 (94) 95 Intake and Output 12/29/18 12/30/18 18:59 06:59 Intake Total 1425 ml 780 ml Balance 1425 ml 780 ml Intake Oral 840 ml IV Total 585 ml 780 ml # Voids 5 2 Height (Feet): 5 Height (Inches): 4.00 Weight (Pounds): 174 Objective General Appearance: WD/WN, alert/agitated Neck: supple Cardiovascular: normal rate Respiratory/Chest: chest wall non-tender, lungs clear, normal breath sounds Abdomen: normal bowel sounds, non tender, soft, no organomegaly Edema: no edema noted Arm (L), no edema noted Arm (R), no edema noted Leg (L), no edema noted Leg (R), no edema noted Pedal (L), no edema noted Pedal (R), no edema noted 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
[2018-12-30 16:00] VITALS: BP 137/79
[2018-12-30] MEDS ORDERED: 1/2 NS 1000ml IV ONE (16:59)
[2018-12-30 20:00] VITALS: BP 141/81
[2018-12-31] VITALS: BP 126/67
[2018-12-31 04:00] VITALS: BP 116/70
--- NOTE | 2018-12-31 05:15 | Progress Note ---
DATE: 12/30/2018 SUBJECTIVE: The patient is calmer, more cooperative. The patient was not yelling today. Still delusional. MENTAL STATUS EXAMINATION: The patient is alert, oriented times self and place. Mood is agitated. Affect is flat. Thought process is concrete. Thought content, no suicidal or homicidal ideation. ASSESSMENT: Schizophrenia. PLAN: 1. The patient will be continued on current medications. 2. Provide the patient reality orientation and supportive psychotherapy. Jonathan Hopkins M.D. DR: BUDDY JOB#: [id number] CC:
[2018-12-31] MEDS: NovoLOG Insulin Flexpen SUBQ SCH ×4 (06:04→20:40)
[2018-12-31 06:33] LABS: BASOPHILS % (AUTO) 0.4 % (0.0-2.0); EOSINOPHILS % (AUTO) 5.6 % (0.0-3.0); HEMATOCRIT 40.8 % (37.0-47.0); HEMOGLOBIN 13.1 G/DL (12.0-16.0); LYMPHOCYTES % (AUTO) 17.9 % (20.0-45.0); MEAN CORPUSCULAR VOLUME 81 FL (80-99); MONOCYTES % (AUTO) 8.3 % (1.0-10.0); NEUTROPHILS % (AUTO) 67.9 % (45.0-75.0); PLATELET COUNT 540 K/UL (150-450); RED BLOOD COUNT 5.02 M/UL (4.20-5.40); RED CELL DISTRIBUTION WIDTH 13.8 % (11.6-14.8); WHITE BLOOD COUNT 12.1 K/UL (4.8-10.8)
[2018-12-31 06:39] LABS: INR 0.9 (0.9-1.1)
--- NOTE | 2018-12-31 07:44 | General Progress Note ---
Assessment/Plan Problem List: (1) UTI (urinary tract infection) ICD Codes: N39.0 - Urinary tract infection, site not specified SNOMED: 18554089 (2) Status asthmaticus ICD Codes: J45.902 - Unspecified asthma with status asthmaticus SNOMED: 96015283 (3) HTN (hypertension) ICD Codes: I10 - Essential (primary) hypertension SNOMED: 09661665 (4) DM (diabetes mellitus) ICD Codes: E11.9 - Type 2 diabetes mellitus without complications SNOMED: 81628031 Status: stable, progressing Assessment/Plan: psych rx o2 prn and resp rx prn monitor labs- cbc outpt gyne eval medically stable to transfer to psych Subjective ROS Limited/Unobtainable: Yes Constitutional: Reports: malaise, weakness HEENT: Reports: no symptoms Cardiovascular: Reports: no symptoms Respiratory: Reports: no symptoms Gastrointestinal/Abdominal: Reports: no symptoms Genitourinary: Reports: no symptoms Neurologic/Psychiatric: Reports: anxiety, emotional problems Endocrine: Reports: no symptoms Hematologic/Lymphatic: Reports: no symptoms Allergies: Coded Allergies: NO KNOWN ALLERGIES (Unverified Allergy, Unknown, 09/17/18) All Systems: reviewed and negative except above Subjective had some bloody vaginal dc. aspirin and heparin dcd. less agitated Objective Last 24 Hour Vital Signs Date Time Temp Pulse Resp B/P (MAP) Pulse Ox O2 Delivery O2 Flow Rate FiO2 12/31/18 04:00 97.4 89 20 116/70 (85) 95 12/31/18 00:00 97.9 96 18 126/67 (86) 95 12/30/18 20:42 Room Air 12/30/18 20:11 96 Room Air 21 12/30/18 20:00 97.6 93 20 141/81 (101) 97 12/30/18 16:00 98.0 100 18 137/79 (98) 96 12/30/18 12:00 97.8 89 18 134/85 (101) 94 12/30/18 11:32 96 Room Air 21 12/30/18 09:00 Room Air 12/30/18 08:35 151/84 12/30/18 08:00 98.3 95 18 151/84 (106) 94 Intake and Output 12/30/18 12/31/18 19:00 07:00 Intake Total 1435 ml 260 ml Balance 1435 ml 260 ml Intake Oral 720 ml IV Total 715 ml 260 ml # Voids 5 # Bowel Movements 1 1 Laboratory Tests 12/31/18 04:39: White Blood Count 12.1H, Red Blood Count 5.02, Hemoglobin 13.1, Hematocrit 40.8 , Mean Corpuscular Volume 81, Mean Corpuscular Hemoglobin 26.0L, Mean Corpuscular Hemoglobin Concent 32.0, Red Cell Distribution Width 13.8, Platelet Count 540H, Mean Platelet Volume 6.2L, Neutrophils (%) (Auto) 67.9, Lymphocytes (%) (Auto) 17.9L, Monocytes (%) (Auto) 8.3, Eosinophils (%) (Auto) 5.6H, Basophils (%) (Auto) 0.4, Prothrombin Time 9.8, Prothromb Time International Ratio 0.9, Activated Partial Thromboplast Time 28 Height (Feet): 5 Height (Inches): 4.00 Weight (Pounds): 174 Objective General Appearance: WD/WN, alert/agitated Neck: supple Cardiovascular: normal rate Respiratory/Chest: chest wall non-tender, lungs clear, normal breath sounds Abdomen: normal bowel sounds, non tender, soft, no organomegaly Edema: no edema noted Arm (L), no edema noted Arm (R), no edema noted Leg (L), no edema noted Leg (R), no edema noted Pedal (L), no edema noted Pedal (R), no edema noted 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
[2018-12-31 08:00] VITALS: BP 124/78
[2018-12-31] MEDS: Losartan 25mg tab ORAL SCH (08:51)
[2018-12-31] MEDS: metFORMIN 500mg tab ORAL SCH ×2 (08:51→17:17)
[2018-12-31] MEDS: GlipiZIDE 5mg tab ORAL SCH (08:52)
[2018-12-31 12:00] VITALS: BP 121/77
[2018-12-31 16:00] VITALS: BP 120/70
--- NOTE | 2018-12-31 19:45 | Progress Note ---
DATE: 12/31/2018 SUBJECTIVE: The patient is less agitated, more manageable, continues to respond to internal stimuli, poor insight into her current cognition, easily agitated. MENTAL STATUS EXAMINATION: The patient is alert and oriented times self, still confused. Mood is agitated. Affect is flat. Thought process is concrete. Thought content, no suicidal or homicidal ideation. Cognition is impaired. Insight and judgment is non-existent. ASSESSMENT: Schizoaffective disorder. PLAN: 1. The patient will be continued on current medication. 2. Provide the patient with reality orientation and supportive therapy. 3. Continue the risperidone. Jonathan Hopkins M.D. DR: Alea JOB#: [id number] CC:
[2018-12-31 20:00] VITALS: BP 124/78
[2019-01-01] VITALS: BP 139/82
[2019-01-01 04:00] VITALS: BP 149/80
[2019-01-01] MEDS: NovoLOG Insulin Flexpen SUBQ SCH ×4 (05:42→20:09)
[2019-01-01 08:00] VITALS: BP 130/81
[2019-01-01] MEDS: metFORMIN 500mg tab ORAL SCH ×2 (09:07→17:36)
[2019-01-01] MEDS: GlipiZIDE 5mg tab ORAL SCH (09:07)
[2019-01-01] MEDS: Losartan 25mg tab ORAL SCH (09:07)
[2019-01-01 12:00] VITALS: BP 113/74
--- NOTE | 2019-01-01 12:53 | General Progress Note ---
Assessment/Plan Problem List: (1) UTI (urinary tract infection) ICD Codes: N39.0 - Urinary tract infection, site not specified SNOMED: 28779026 (2) Status asthmaticus ICD Codes: J45.902 - Unspecified asthma with status asthmaticus SNOMED: 86120971 (3) HTN (hypertension) ICD Codes: I10 - Essential (primary) hypertension SNOMED: 41656056 (4) DM (diabetes mellitus) ICD Codes: E11.9 - Type 2 diabetes mellitus without complications SNOMED: 51444993 Status: stable, progressing Assessment/Plan: psych rx o2 prn and resp rx prn monitor labs- cbc outpt gyne eval refer to snf Subjective Allergies: Coded Allergies: NO KNOWN ALLERGIES (Unverified Allergy, Unknown, 09/17/18) Subjective no events. w/o complaints. more cooperative. no bleeding Objective Last 24 Hour Vital Signs Date Time Temp Pulse Resp B/P (MAP) Pulse Ox O2 Delivery O2 Flow Rate FiO2 01/01/19 09:07 130/81 01/01/19 08:00 97.8 86 19 130/81 (97) 95 01/01/19 08:00 Room Air 01/01/19 04:00 97.9 101 20 149/80 (103) 96 01/01/19 00:00 98.3 104 20 139/82 (101) 99 12/31/18 21:00 Room Air 12/31/18 20:00 98.0 105 20 124/78 (93) 98 12/31/18 18:55 96 Room Air 21 12/31/18 16:00 98.5 90 16 120/70 (87) 98 Intake and Output 12/31/18 01/01/19 19:00 07:00 Intake Total 600 ml 100 ml Balance 600 ml 100 ml Intake Oral 600 ml 100 ml # Voids 3 2 Height (Feet): 5 Height (Inches): 4.00 Weight (Pounds): 174 Objective General Appearance: WD/WN, alert/agitated Neck: supple Cardiovascular: normal rate Respiratory/Chest: chest wall non-tender, lungs clear, normal breath sounds Abdomen: normal bowel sounds, non tender, soft, no organomegaly Edema: no edema noted Arm (L), no edema noted Arm (R), no edema noted Leg (L), no edema noted Leg (R), no edema noted Pedal (L), no edema noted Pedal (R), no edema noted 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
[2019-01-01 13:41] LABS: BASOPHILS % (AUTO) 0.8 % (0.0-2.0); EOSINOPHILS % (AUTO) 3.8 % (0.0-3.0); HEMATOCRIT 46.2 % (37.0-47.0); HEMOGLOBIN 14.5 G/DL (12.0-16.0); LYMPHOCYTES % (AUTO) 17.2 % (20.0-45.0); MEAN CORPUSCULAR VOLUME 82 FL (80-99); MONOCYTES % (AUTO) 9.6 % (1.0-10.0); NEUTROPHILS % (AUTO) 68.6 % (45.0-75.0); PLATELET COUNT 586 K/UL (150-450); RED BLOOD COUNT 5.64 M/UL (4.20-5.40); WHITE BLOOD COUNT 13.5 K/UL (4.8-10.8)
[2019-01-01 13:55] LABS: ALANINE AMINOTRANSFERASE 27 U/L (12-78); ALBUMIN 2.9 G/DL (3.4-5.0); ALBUMIN/GLOBULIN RATIO 0.5 (1.0-2.7); ALKALINE PHOSPHATASE 142 U/L (46-116); ANION GAP 4 mmol/L (5-15); ASPARTATE AMINO TRANSFERASE 22 U/L (15-37); BILIRUBIN,TOTAL 0.2 MG/DL (0.2-1.0); BLOOD UREA NITROGEN 12 mg/dL (7-18); CALCIUM 9.3 MG/DL (8.5-10.1); CARBON DIOXIDE 31 MMOL/L (21-32); CHLORIDE 98 MMOL/L (98-107); CREATININE 0.8 MG/DL (0.55-1.30); POTASSIUM 3.5 MMOL/L (3.5-5.1); SODIUM 133 MMOL/L (136-145)
[2019-01-01 16:00] VITALS: BP 114/64
[2019-01-01 20:00] VITALS: BP 131/68
[2019-01-02] VITALS: BP 129/80
[2019-01-02 04:00] VITALS: BP 156/73
[2019-01-02] MEDS: NovoLOG Insulin Flexpen SUBQ SCH ×5 (05:47→21:09)
[2019-01-02 08:00] VITALS: BP 124/64
[2019-01-02] MEDS: metFORMIN 500mg tab ORAL SCH ×2 (08:47→17:25)
[2019-01-02] MEDS: GlipiZIDE 5mg tab ORAL SCH (08:47)
[2019-01-02] MEDS: Losartan 25mg tab ORAL SCH (08:50)
--- NOTE | 2019-01-02 11:06 | General Progress Note ---
Assessment/Plan Problem List: (1) UTI (urinary tract infection) ICD Codes: N39.0 - Urinary tract infection, site not specified SNOMED: 24451919 (2) Status asthmaticus ICD Codes: J45.902 - Unspecified asthma with status asthmaticus SNOMED: 58828509 (3) HTN (hypertension) ICD Codes: I10 - Essential (primary) hypertension SNOMED: 47115852 (4) DM (diabetes mellitus) ICD Codes: E11.9 - Type 2 diabetes mellitus without complications SNOMED: 34228787 Status: stable, progressing Assessment/Plan: psych rx o2 prn and resp rx prn monitor labs- cbc outpt gyne eval refer to snf Subjective ROS Limited/Unobtainable: No Constitutional: Reports: malaise, weakness HEENT: Reports: no symptoms Cardiovascular: Reports: no symptoms Respiratory: Reports: no symptoms Gastrointestinal/Abdominal: Reports: no symptoms Genitourinary: Reports: no symptoms Neurologic/Psychiatric: Reports: anxiety, emotional problems Endocrine: Reports: no symptoms Hematologic/Lymphatic: Reports: no symptoms Allergies: Coded Allergies: NO KNOWN ALLERGIES (Unverified Allergy, Unknown, 09/17/18) All Systems: reviewed and negative except above Subjective no events. w/o complaints. more cooperative. no bleeding Objective Last 24 Hour Vital Signs Date Time Temp Pulse Resp B/P (MAP) Pulse Ox O2 Delivery O2 Flow Rate FiO2 01/02/19 08:50 124/64 01/02/19 08:00 97.7 73 16 124/64 (84) 97 01/02/19 04:00 98.4 116 23 156/73 (100) 98 01/02/19 00:00 98.0 104 19 129/80 (96) 97 01/01/19 21:00 Room Air 01/01/19 20:00 98.2 111 18 131/68 (89) 97 01/01/19 16:00 98.1 99 21 114/64 (81) 97 01/01/19 12:00 97.1 94 20 113/74 (87) 96 Intake and Output 01/01/19 01/02/19 18:59 06:59 Intake Total 2700 ml 600 ml Balance 2700 ml 600 ml Intake Oral 600 ml Other 2700 ml # Bowel Movements 1 Laboratory Tests 01/01/19 13:11: White Blood Count 13.5H, Red Blood Count 5.64H, Hemoglobin 14.5, Hematocrit 46.2 , Mean Corpuscular Volume 82, Mean Corpuscular Hemoglobin 25.7L, Mean Corpuscular Hemoglobin Concent 31.4L, Red Cell Distribution Width 14.0, Platelet Count 586H, Mean Platelet Volume 6.3L, Neutrophils (%) (Auto) 68.6, Lymphocytes (%) (Auto) 17.2L, Monocytes (%) (Auto) 9.6, Eosinophils (%) (Auto) 3.8H, Basophils (%) (Auto) 0.8, Sodium Level 133L, Potassium Level 3.5, Chloride Level 98, Carbon Dioxide Level 31, Anion Gap 4L, Blood Urea Nitrogen 12 , Creatinine 0.8, Estimat Glomerular Filtration Rate > 60, Glucose Level 117H, Calcium Level 9.3, Total Bilirubin 0.2, Aspartate Amino Transf (AST/SGOT) 22, Alanine Aminotransferase (ALT/SGPT) 27, Alkaline Phosphatase 142H, Total Protein 8.3H, Albumin 2.9L, Globulin 5.4, Albumin/Globulin Ratio 0.5L Height (Feet): 5 Height (Inches): 4.00 Weight (Pounds): 174 Objective General Appearance: WD/WN, alert/agitated Neck: supple Cardiovascular: normal rate Respiratory/Chest: chest wall non-tender, lungs clear, normal breath sounds Abdomen: normal bowel sounds, non tender, soft, no organomegaly Edema: no edema noted Arm (L), no edema noted Arm (R), no edema noted Leg (L), no edema noted Leg (R), no edema noted Pedal (L), no edema noted Pedal (R), no edema noted 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
[2019-01-02 12:05] VITALS: BP 126/79
[2019-01-02 16:08] VITALS: BP 118/61
[2019-01-02 20:00] VITALS: BP 109/69
[2019-01-03] VITALS: BP 105/70
[2019-01-03 04:00] VITALS: BP 123/72
[2019-01-03] MEDS: NovoLOG Insulin Flexpen SUBQ SCH ×2 (05:45→12:28)
[2019-01-03 08:00] VITALS: BP 121/69
[2019-01-03] MEDS: Losartan 25mg tab ORAL SCH ×2 (09:00→09:55)
[2019-01-03] MEDS: GlipiZIDE 5mg tab ORAL SCH ×2 (09:00→09:55)
[2019-01-03] MEDS: metFORMIN 500mg tab ORAL SCH ×2 (09:00→09:55)
[2019-01-03 12:00] VITALS: BP 132/59
[2019-01-03] MEDS ORDERED: ACETAMINOPHEN325 M1 ORAL (13:47)
[2019-01-03] MEDS ORDERED: PANTOPRAZOLE SO40 MG ORAL (13:51)
[2019-01-03] MEDS ORDERED: LORAZEPAM4 MG/1 M1 IV (13:56)
[2019-01-03] MEDS ORDERED: ATIVAN2 MG/1 ML IM (13:56)
[2019-01-03] MEDS ORDERED: ATIVAN2 MG/1 ML IV (13:56)
[2019-01-03] MEDS ORDERED: RISPERDAL1 MG PO (14:00)
[2019-01-03] MEDS ORDERED: GLIPIZIDE5 MG ORAL (14:02)
[2019-01-03] MEDS ORDERED: HALOPERIDOL5 MG/1 ML IM (14:05)
[2019-01-03] MEDS ORDERED: NOVOLOG100 UNITS1 (14:08)
--- NOTE | 2019-01-04 03:30 | Progress Note ---
DATE: 01/03/2019 SUBJECTIVE: The patient is doing well. Decreased behavior issues. Less agitated. Calm and cooperative. MENTAL STATUS EXAMINATION: Alert, oriented times self and place. Mood is less agitated. Affect is flat. Thought process is disorganized. Thought content, no suicidal or homicidal ideation. ASSESSMENT: Schizophrenia. PLAN: 1. The patient will be discharged. 2. She will follow up with a psychiatrist. Jonathan Hopkins M.D. DR: BUDDY JOB#: [id number] CC:
--- NOTE | 2019-01-04 12:30 | Discharge Summary ---
Discharge Summary Discharge Summary _ DATE OF ADMISSION: 12/20/2018 DATE OF DISCHARGE: 01/03/2019 DISCHARGED BY: Dr. Alva REASON FOR ADMISSION: 63 years old female with past medical history of CVA, seizure disorder, hypertension, hypercholesterolemia, COPD, sleep apnea, diabetes mellitus type 2 , was brought by music therapy specialist with complaints of altered mental status. Patient was found on the ground , covered in the urine. Patient was markedly confused and altered. Patient apparently was living on the streets. She was unable to care for herself at home. [employer] was summoned and they subsequently summoned paramedics to evaluate the patient and transfer for further management. Upon evaluation in D vital signs reveal elevated blood pressure 155/92, otherwise were stable. Laboratory work-up revealed leukocytosis WBC 14.2, stable hemoglobin , hematocrit and platelet count. ABG was stable. Stable electrolytes and renal parameters. Stable LFT. Troponin negative.EKG revealed sinus rhythm, no acute ischemic changes. Urinalysis revealed evidence of urinary tract infection. Urine toxicology screen was negative. Serum salicylates, Tylenol and alcohol levels were negative. Chest x-ray revealed no acute cardiopulmonary pathology. Patient was agitated and required sedation for combativeness. Patient subsequently admitted for further management. CONSULTANTS: psychiatrist [facility]: Patient admitted to medical surgical floor. Patient started on empiric antibiotics and IV hydration. Outpatient medications were resumed. Venous duplex bilateral lower extremity revealed no evidence of acute DVT. VQ scan revealed low probability for for pulmonary emboli. CT of the head revealed no acute intracranial pathology. No mass-effect , edema or acute bleeding . Mild sinusitis. Supplemental oxygen provided and titrated as needed to keep pulse oximetry above 92%. Pulse oximetry was stable on room air prior to discharge. Urine culture revealed E. coli. Blood cultures were negative. Repeated urine culture was negative. Patient completed treatment for urinary tract infection. Antiplatelet therapy with aspirin continued. Blood pressure was managed with Cozaar and remained stable. Blood sugar was managed with metformin, glipizide and sliding scale of insulin as needed. DVT and GI prophylaxis provided. Supportive care provided. Patient was working with a physical therapist. Fall precautions maintained. Patient noted to have bloody vaginal discharge. Subsequently aspirin and heparin were discontinued. No further episodes of bloody vaginal discharge. Hemoglobin and hematocrit remained at baseline. Further evaluation by [facility] will be arranged as outpatient. Psychiatrist closely followed. Per psychiatrist, patient had schizophrenia. Psychiatric medication regimen was optimized. Reality orientation and supportive therapy provided. Placement was found and secured at [facility]. Patient subsequently was [facility] to [facility] for [facility] of care. FINAL DIAGNOSES: Probably sepsis E. coli UTI Metabolic encephalopathy Hypertension Diabetes mellitus DISCHARGE MEDICATIONS: See Medication Reconciliation list. DISCHARGE INSTRUCTIONS: Patient was discharged to the [facility] facility. Follow up with medical doctor at the facility. I have been assigned to dictate discharge summary for this account. I was not involved in the patient's management. Leslye Quevedo NP Jan 04, 2019 12:30
== END 2019-01-03 16:16 | DRG 871 ==
LOC: EDBD 12:29 → EMR 13:20 → 4E 13:23 → EDBEDREQ 13:32 → 2W 21:27 → 4E 12-24 21:01
DX: A41.9 Sepsis, unspecified organism (principal); G93.41 Metabolic encephalopathy; N39.0 Urinary tract infection, site not specified; J45.902 Unspecified asthma with status asthmaticus; I50.30 Unspecified diastolic (congestive) heart failure; I11.0 Hypertensive heart disease with heart failure; F20.9 Schizophrenia, unspecified; B96.20 Unspecified Escherichia coli [E. coli] as the cause of diseases classified elsewhere; E11.9 Type 2 diabetes mellitus without complications
CPT/HCPCS: 36415; 36600; 70450; 71045; 78579; 78580; 80048; 80053; 80307; 81001; 81003; 82550; 82803; 82962; 83735; 84484; 85025; 85610; 85730; 87040; 87086; 87181; 93005; 93970; 94660; 94664; 96361; 96365; 96372; 96375; 99285; A9503; G0480; J1815; J7030; J8499

== ENCOUNTER 2019-03-25 19:08 | Emergency (ER) | payer SELFPAY ==
[~2019-03-25] VITALS: Ht 154.9 cm; Wt 84.4 kg
[~2019-03-25 19:08] MED LIST changes: +ACETAMINOPHEN325 M1 ORAL; +ATIVAN2 MG/1 ML IM; +ATIVAN2 MG/1 ML IV; +ATORVASTATIN CA10 MG ORAL; +COZAAR25 MG ORAL; +HALOPERIDOL5 MG/1 ML IM; +LORAZEPAM4 MG/1 M1 IV; +NOVOLOG100 UNITS1; +PANTOPRAZOLE SO40 MG ORAL; +RISPERDAL1 MG PO; +VENTOLIN HFA18 GM INH
[2019-03-25 19:45] VITALS: BP 148/80
--- NOTE | 2019-03-25 19:45 | NUR ---
ED Nurse Note: Patient walked in to ER, with unknown complain. Patient is talking non-sence, stating that [facility] is a conspiracy, and they injected wrong medication. Patient presented AAO x2, VSS at this time.
--- NOTE | 2019-03-25 20:09 | NUR ---
ED Nurse Note: Patient was able to ambulate to the bathroom with steady gait
--- NOTE | 2019-03-25 20:10 | NUR ---
ED Nurse Note: blood and urine specimen collected, sent down
--- NOTE | 2019-03-25 20:55 | Emergency Room Report ---
History of Present Illness General Chief Complaint: General Complaint Source: Patient Present Illness HPI Disclaimer: Please note that this report is being documented using [employer]ap[employer] technology. This can lead to erroneous entry secondary to incorrect interpretation by the dictating instrument. HPI: 63-year-old female with history of hypertension, diabetes, schizophrenia presents for evaluation of "being sick." The patient refuses to get specific about her symptoms. She states she has been in multiple hospitals and doctors continue to "screw up" on her causing her significant side effects due to "medications she does not need." She will not tell me whether or not she is currently compliant with her medication regimen. All I can get out of the patient is that she has myalgias and arthralgias though they have been longstanding, several months in duration. From what I can tell there no acute changes in her health though she is nonspecific. She did not headache, chest pain and cough. She reported feeling cold but denied fevers. Otherwise she does not provide significant information. She is combative with staff. PMH: Schizophrenia, hypertension, hyperlipidemia, diabetes PSH: Patient did not answer Allergies: None reported Social Hx: Patient did not answer Allergies: Coded Allergies: NO KNOWN ALLERGIES (Unverified Allergy, Unknown, 09/17/18) Nursing Documentation-PMH Hx Cardiac Problems: Yes - Leukemia Hx Hypertension: Yes Hx Pacemaker: No Hx Asthma: Yes Hx COPD: Yes Hx Diabetes: Yes Hx Cancer: No Hx Gastrointestinal Problems: No Hx Dialysis: No Hx Neurological Problems: No Hx Cerebrovascular Accident: Yes Hx Seizures: Yes Hx Headaches: Yes Hx Weakness: Yes Hx Fatigue: Yes Review of Systems All Other Systems: negative except mentioned in HPI Physical Exam Vital Signs Date Time Temp Pulse Resp B/P (MAP) Pulse Ox O2 Delivery O2 Flow Rate FiO2 03/25/19 19:23 98.1 102 17 148/80 (102) 98 Room Air General: Awake and alert, no acute distress HEENT: NC/AT. EOMI. Cardiovascular: [place] tachycardia. S1 and S2 normal. No murmur appreciated Resp: Normal work of breathing. No cough, wheezing or crackles appreciated Abdomen: Abdomen is soft, nondistended. Nontender Skin: Intact. No abrasions, laceration or rash over the exposed skin MSK: Normal tone and bulk. Moving all extremities. Diffuse myalgias and arthralgias but no obvious deformity, focal tenderness or limitation to range of motion. Neuro: Awake and alert. Oriented to self and place. She is combative with staff and avoidance. She is refusing to answer questions. She is somewhat tangential. Medical Decision Making Diagnostic Impression: Primary Impression: Hyperglycemia Additional Impression: Myalgia ER Course 63-year-old female history of diabetes, schizophrenia presents for evaluation of myalgias. Patient does not provide significant history though she does complain of longstanding arthralgias myalgias. We will obtain screening labs given the poor historian Laboratory Tests Test 03/25/19 20:20 White Blood Count 12.9 K/UL (4.8-10.8) H Red Blood Count 5.09 M/UL (4.20-5.40) Hemoglobin 13.3 G/DL (12.0-16.0) Hematocrit 44.4 % (37.0-47.0) Mean Corpuscular Volume 87 FL (80-99) Mean Corpuscular Hemoglobin 26.2 PG (27.0-31.0) L Mean Corpuscular Hemoglobin Concent 30.1 G/DL (32.0-36.0) L Red Cell Distribution Width 14.6 % (11.6-14.8) Platelet Count 403 K/UL (150-450) Mean Platelet Volume 7.3 FL (6.5-10.1) Neutrophils (%) (Auto) 62.7 % (45.0-75.0) Lymphocytes (%) (Auto) 21.2 % (20.0-45.0) Monocytes (%) (Auto) 6.9 % (1.0-10.0) Eosinophils (%) (Auto) 8.0 % (0.0-3.0) H Basophils (%) (Auto) 1.2 % (0.0-2.0) Urine Color Pale yellow Urine Appearance Clear Urine pH 6.0 (4.5-8.0) Urine Specific [place] 1.015 (1.005-1.035) Urine Protein 2+ (NEGATIVE) H Urine Glucose (UA) 1+ (NEGATIVE) H Urine Ketones Negative (NEGATIVE) Urine Blood Negative (NEGATIVE) Urine Nitrite Negative (NEGATIVE) Urine Bilirubin Negative (NEGATIVE) Urine Urobilinogen Normal MG/DL (0.0-1.0) Urine Leukocyte Esterase Negative (NEGATIVE) Urine RBC 0-2 /HPF (0 - 2) Urine WBC 0-2 /HPF (0 - 2) Urine Squamous Epithelial Cells Few /LPF (NONE/OCC) Urine Bacteria Few /HPF (NONE) Sodium Level 143 MMOL/L (136-145) Potassium Level 4.1 MMOL/L (3.5-5.1) Chloride Level 103 MMOL/L (98-107) Carbon Dioxide Level 32 MMOL/L (21-32) Anion Gap 8 mmol/L (5-15) Blood Urea Nitrogen 20 mg/dL (7-18) H Creatinine 1.1 MG/DL (0.55-1.30) Estimate Glomerular Filtration Rate 50.0 mL/min (>60) Glucose Level 228 MG/DL (74-106) H Calcium Level 9.1 MG/DL (8.5-10.1) Total Bilirubin 0.2 MG/DL (0.2-1.0) Aspartate Amino Transferase (AST) 14 U/L (15-37) L Alanine Aminotransferase (ALT) 19 U/L (12-78) Alkaline Phosphatase 156 U/L (46-116) H Total Creatine Kinase 81 U/L (26-308) Total Protein 7.9 G/DL (6.4-8.2) Albumin 3.3 G/DL (3.4-5.0) L Globulin 4.6 g/dL Albumin/Globulin Ratio 0.7 (1.0-2.7) L Reevaluation Time: 22:52 Last Vital Signs Date Time Temp Pulse Resp B/P (MAP) Pulse Ox O2 Delivery O2 Flow Rate FiO2 03/25/19 19:45 102 17 Room Air 03/25/19 19:45 98.1 148/80 98 Reevaluation Impression Labs have returned within normal limits. Slight elevation of white count though differential unremarkable. Chemistry shows elevated blood glucose liver 228 without a gap. Renal function and liver function within normal limits. Urine noninfectious. The patient was very reassured by these results. I have refilled her glipizide. She can follow-up with clinic and PMD. She understands reasons to return to the emergency department. She was discharged home. Disposition: HOME, SELF-CARE Condition: Stable Scripts Glipizide* (GLIPIZIDE*) 5 Mg Tablet 5 MG ORAL DAILY for 30 Days, #30 TAB Prov: Eder Santamaria MD 03/25/19 Eder Santamaria MD Mar 25, 2019 20:55
[2019-03-25 21:09] LABS: BASOPHILS % (AUTO) 1.2 % (0.0-2.0); HEMATOCRIT 44.4 % (37.0-47.0); HEMOGLOBIN 13.3 G/DL (12.0-16.0); LYMPHOCYTES % (AUTO) 21.2 % (20.0-45.0); MEAN CORPUSCULAR VOLUME 87 FL (80-99); MONOCYTES % (AUTO) 6.9 % (1.0-10.0); NEUTROPHILS % (AUTO) 62.7 % (45.0-75.0); PLATELET COUNT 403 K/UL (150-450); RED BLOOD COUNT 5.09 M/UL (4.20-5.40); RED CELL DISTRIBUTION WIDTH 14.6 % (11.6-14.8); WHITE BLOOD COUNT 12.9 K/UL (4.8-10.8)
[2019-03-25 21:11] LABS: ANION GAP 8 mmol/L (5-15); BLOOD UREA NITROGEN 20 mg/dL (7-18); CALCIUM 9.1 MG/DL (8.5-10.1); CARBON DIOXIDE 32 MMOL/L (21-32); CHLORIDE 103 MMOL/L (98-107); CREATININE 1.1 MG/DL (0.55-1.30); POTASSIUM 4.1 MMOL/L (3.5-5.1); SODIUM 143 MMOL/L (136-145)
[2019-03-25 21:16] LABS: ALANINE AMINOTRANSFERASE 19 U/L (12-78); ALBUMIN 3.3 G/DL (3.4-5.0); ALBUMIN/GLOBULIN RATIO 0.7 (1.0-2.7); ALKALINE PHOSPHATASE 156 U/L (46-116); ASPARTATE AMINO TRANSFERASE 14 U/L (15-37); BILIRUBIN,TOTAL 0.2 MG/DL (0.2-1.0); CREATINE KINASE 81 U/L (26-308)
[2019-03-25 21:32] LABS: APPEARANCE,URINE CLEAR; COLOR,URINE PALE YELLOW
[2019-03-25 21:33] LABS: BILIRUBIN, URINE NEGATIVE (NEGATIVE); GLUCOSE, URINE (UA) 1+ (NEGATIVE); KETONES,URINE NEGATIVE (NEGATIVE); LEUKOCYTE ESTERASE ,URINE NEGATIVE (NEGATIVE); NITRITE,URINE NEGATIVE (NEGATIVE); PROTEIN,URINE 2+ (NEGATIVE); UROBILINOGEN,URINE NORMAL MG/DL (0.0-1.0)
[2019-03-25] MEDS ORDERED: GLIPIZIDE5 MG ORAL (22:27)
[2019-03-25 22:40] VITALS: BP 148/80
== END 2019-03-25 22:40 | disposition home or self-care (01) ==
LOC: EMR 19:41
DX: M79.10 Myalgia, unspecified site (principal); E11.65 Type 2 diabetes mellitus with hyperglycemia; I10 Essential (primary) hypertension; J44.9 Chronic obstructive pulmonary disease, unspecified; Z86.73 Personal history of transient ischemic attack (TIA), and cerebral infarction without residual deficits; G40.909 Epilepsy, unspecified, not intractable, without status epilepticus
CPT/HCPCS: 36415; 80053; 81003; 82550; 85025; 99284

== ENCOUNTER 2019-05-25 16:39 | Emergency (ER) | payer SELFPAY ==
[~2019-05-25] VITALS: Ht 167.6 cm; Wt 90.7 kg
[2019-05-25 16:45] VITALS: BP 136/74
--- NOTE | 2019-05-25 16:45 | NUR ---
ED Nurse Note: Pt presents to the ED for medical evaluation. ERMD bedside. Upon asking pt questions, she states she has no complaints and cannot state why she is in the ED. Pt presenting with bizarre behavior. Pt is aaox4, breathing is normal and unlabored, no acute distress noted.
--- NOTE | 2019-05-25 16:55 | NUR ---
ED Nurse Note: Pt denies any pain and wants no medical treatment. Pt is requesting to be DC and go home, ERMD aware.
[2019-05-25] MEDS ORDERED: ACETAMINOPHEN325 M1 ORAL (16:57)
[2019-05-25 17:00] VITALS: BP 132/79
--- NOTE | 2019-05-25 17:00 | NUR ---
ER DISCHARGE NOTE: Patient is cleared to be discharged per ERMD, pt is aox4, on room air, with stable vital signs. pt was given dc and prescription instructions, pt was able to verbalize understanding, pt id band removed. pt is able to ambulate with steady gait. pt took all belongings.
--- NOTE | 2019-05-25 17:06 | Emergency Room Report ---
History of Present Illness General Chief Complaint: General Complaint Source: Patient Present Illness HPI Disclaimer: Please note that this report is being documented using PivotDeskON technology. This can lead to erroneous entry secondary to incorrect interpretation by the dictating instrument. HPI: 63-year-old female with history of hypertension, diabetes, schizophrenia presents for evaluation of "being sick." The patient refuses to get specific about her symptoms. Similar presentation last week. She states she is in chronic pain from breaking every single bone in her body from head to toe. She took herself off of medication stating that she is her own doctor and is concerned that every pharmacy has tainted medications. She denies any fever, chills, cough, vomiting, diarrhea. She keeps complaining that she is "sick." She wants to be tested for "poison." Cannot say specifically why she believes she is being poisoned. She has no other acute complaints at this time. PMH: Schizophrenia, hypertension, hyperlipidemia, diabetes PSH: Multiple broken bones per patient Allergies: None reported Social Hx: Patient did not answer Allergies: Coded Allergies: NO KNOWN ALLERGIES (Unverified Allergy, Unknown, 09/17/18) COVID-19 Screening Contact w/high risk pt: No Recent Travel to affected area: No Experienced COVID-19 symptoms?: No Patient History Now: No Nursing Documentation-PMH Hx Hypertension: Yes Hx Pacemaker: No Hx Asthma: Yes Hx COPD: Yes Hx Diabetes: Yes Hx Cancer: No Hx Gastrointestinal Problems: No Hx Dialysis: No Hx Neurological Problems: No Hx Cerebrovascular Accident: Yes Hx Seizures: Yes Hx Headaches: Yes Hx Weakness: Yes Hx Fatigue: Yes Review of Systems All Other Systems: negative except mentioned in HPI Physical Exam Vital Signs Date Time Temp Pulse Resp B/P (MAP) Pulse Ox O2 Delivery O2 Flow Rate FiO2 05/25/19 16:30 98.8 98 19 136/74 (94) 98 Room Air General: Awake and alert, no acute distress HEENT: NC/AT. EOMI. Cardiovascular: RRR. S1 and S2 normal. No murmur appreciated Resp: Normal work of breathing. No cough, wheezing or crackles appreciated Skin: Intact. No abrasions, laceration or rash over the exposed skin MSK: Normal tone and bulk. Moving all extremities. No obvious deformity. Neuro: Awake and alert. Mentating appropriately. Medical Decision Making Diagnostic Impression: Primary Impression: Encounter for medical screening examination ER Course Is a 63-year-old female with a history of schizophrenia presenting for nonspecific medical complaints. She is reporting head to toe pain but no acute injury. Denies any infectious symptoms at this time. Patient has paranoia regarding the safety of medications and was refusing all interventions at this time. I offered blood work to check blood sugars, urinalysis for urinary tract infection however she refused. She then asked to leave the emergency department. She does not appear to be in any acute distress. Similar behavior to prior ER visits. Low concern for acute illness at this time. Referred to primary care clinics. Last Vital Signs Date Time Temp Pulse Resp B/P (MAP) Pulse Ox O2 Delivery O2 Flow Rate FiO2 05/25/19 16:30 98.8 98 19 136/74 (94) 98 Room Air Disposition: HOME, SELF-CARE Condition: Stable Scripts Acetaminophen* (ACETAMINOPHEN 325MG TABLET*) 325 Mg Tablet 650 MG ORAL Q6H PRN for For Pain, #30 TAB Prov: Eder Santamaria MD 05/25/19 Referrals: [facility] Patient Instructions: Medical Screening Exam, DASH Eating Plan Additional Instructions: Follow up with primary care clinic for reevaluation and to discuss your ongoing medical compalints. Return to the emergency department with any new or worsening symptoms Eder Santamaria MD May 25, 2019 17:06
== END 2019-05-25 17:00 | disposition home or self-care (01) ==
LOC: EMR 16:50
DX: R52 Pain, unspecified (principal); F20.9 Schizophrenia, unspecified; E11.9 Type 2 diabetes mellitus without complications; I10 Essential (primary) hypertension; E78.5 Hyperlipidemia, unspecified; J44.9 Chronic obstructive pulmonary disease, unspecified; Z86.73 Personal history of transient ischemic attack (TIA), and cerebral infarction without residual deficits; G40.909 Epilepsy, unspecified, not intractable, without status epilepticus
CPT/HCPCS: 99281

== ENCOUNTER 2019-10-08 22:00 | Emergency (ER) | payer MEDICARE ==
[~2019-10-08] VITALS: Ht 167.6 cm; Wt 90.7 kg
[2019-10-08 22:15] VITALS: BP 148/89
--- NOTE | 2019-10-08 22:15 | NUR ---
ED Nurse Note: Patient brought into ED from home by PRINCESS RA 29 for c/o chest pain. Per PRINCESS, pt 12 lead ekg was normal on scene. Upon ED arrival, patient is stating "everything hurts". She is unable to give clear history and is rambling unneccessary words. When asked if patient has chest pain, she states yes, but cannot give clear onset or nature of pain. Patient is aaox4, breathing is normal and is in no acute distress at this time. Safety measures met; will continue to monitor patient for change in condition.
[2019-10-08] MEDS ORDERED: Aspirin Baby 81mg ORAL ONE (22:30)
[2019-10-08] MEDS ORDERED: LORazepam 1mg tab ORAL ONE (22:45)
--- NOTE | 2019-10-08 23:01 | Emergency Room Report ---
History of Present Illness General Chief Complaint: Pain Present Illness HPI 63-year-old female with history of schizophrenia, hypertension, diabetes noncompliant with medications here because "everything hurts because I broke every bone in my body" years ago. Patient unable to give a clear history as to when the pain started or what exactly she is suffering from pain. She says that "everything hurts" but denies any focal trauma. Says "I was brushing my teeth and blood was just gushing out everywhere" several weeks ago but was unable to give me any further details. She is ambulating throughout the emergency department and standing comfortably at the bedside. She refuses to lay down because "I do not want to ." She denies any homicidal or suicidal ideation, drug use, alcohol use, hallucinations. Allergies: Coded Allergies: NO KNOWN ALLERGIES (Unverified Allergy, Unknown, 09/17/18) COVID-19 Screening Contact w/high risk pt: No Recent Travel to affected area: No Experienced COVID-19 symptoms?: No COVID-19 Testing performed SEISMIC ENGINEER: No Nursing Documentation-PMH Hx Cardiac Problems: Yes Hx Hypertension: Yes Hx Pacemaker: No Hx Asthma: Yes Hx COPD: Yes Hx Diabetes: Yes Hx Cancer: Yes Hx Gastrointestinal Problems: Yes Hx Dialysis: No Hx Neurological Problems: No Hx Cerebrovascular Accident: Yes Hx Seizures: Yes Hx Headaches: Yes Hx Weakness: Yes Hx Fatigue: Yes Review of Systems All Other Systems: negative except mentioned in HPI Physical Exam Vital Signs Date Time Temp Pulse Resp B/P (MAP) Pulse Ox O2 Delivery O2 Flow Rate FiO2 10/08/19 21:57 99.0 88 18 148/89 (108) 99 Room Air Sp02 EP Interpretation: reviewed, normal General Appearance: no apparent distress, alert, GCS 15, non-toxic Head: normocephalic, atraumatic Eyes: bilateral eye normal inspection, bilateral eye PERRL ENT: hearing grossly normal, normal pharynx, no angioedema, normal voice Neck: full range of motion, supple/symm/no masses Respiratory: chest non-tender, lungs clear, normal breath sounds, speaking full sentences Cardiovascular #1: regular rate, rhythm, no edema Cardiovascular #2: 2+ carotid (R), 2+ carotid (L), 2+ radial (R), 2+ radial (L) , 2+ dorsalis pedis (R), 2+ dorsalis pedis (L) Gastrointestinal: normal bowel sounds, non tender, soft, non-distended, no guarding, no rebound Rectal: deferred Genitourinary: normal inspection, no CVA tenderness Musculoskeletal: back normal, normal range of motion, calf tenderness, gait/ station normal, non-tender Neurologic: alert, motor strength/tone normal, oriented x3, sensory intact, responsive, speech normal Psychiatric: other - Circumferential and tangential speech Reflexes: 3+ bicep (R), 3+ bicep (L), 3+ tricep (R), 3+ tricep (L), 3+ knee (R) , 3+ knee (L) Lymphatic: no adenopathy Medical Decision Making Diagnostic Impression: Primary Impression: Generalized pain Additional Impression: Anxiety ER Course 63-year-old female with history of schizophrenia noncompliant on medications here complaining "everything hurts." Patient was in no distress whatsoever and was laughing and smiling in the emergency department and was ambulating without any difficulty and tolerating p.o. well. Chest x-ray: No infiltrate/effusion. Mediastinum within normal limits EKG: EKG: NSR, no ischemia, intervals WNL. No ectopy Rhythm strip: patient monitored for arrhythmias - no malignant dysrhythmias, runs of PVCs, nor pauses noted Labs revealed a mild leukocytosis. Chest x-ray was negative and urinalysis showed no evidence of infection. Patient was told to follow-up with her primary care provider. Discharged in stable condition. Last Vital Signs Date Time Temp Pulse Resp B/P (MAP) Pulse Ox O2 Delivery O2 Flow Rate FiO2 10/08/19 21:57 99.0 88 18 148/89 (108) 99 Room Air Scripts Acetaminophen* (ACETAMINOPHEN 325MG TABLET*) 325 Mg Tablet 325 MG ORAL Q4H PRN for pain], #20 TAB Prov: Fran Khan M.D. 10/09/19 Referrals: NOT CHOSEN SUZIE/,REFERRING (PCP) Fran Khan M.D. Oct 08, 2019 23:01
--- NOTE | 2019-10-08 23:01 | Diagnostic Imaging Report ---
EXAM: XR Chest, 1 View CLINICAL HISTORY: CP TECHNIQUE: Frontal view of the chest. COMPARISON: Radiograph dated 02/04/2019 FINDINGS: Lungs: Unremarkable. No consolidation. Pleural space: Unremarkable. No pneumothorax. Heart: The cardiac silhouette is mildly enlarged, and unchanged as compared to prior imaging. Mediastinum: Unremarkable. Bones/joints: Unremarkable. Vasculature: The aorta is tortuous. IMPRESSION: No acute findings in the chest.
[2019-10-08 23:21] LABS: EOSINOPHILS % (AUTO) 5.6 % (0.0-3.0); HEMATOCRIT 43.9 % (37.0-47.0); HEMOGLOBIN 13.9 G/DL (12.0-16.0); LYMPHOCYTES % (AUTO) 19.4 % (20.0-45.0); MEAN CORPUSCULAR VOLUME 86 FL (80-99); MONOCYTES % (AUTO) 8.7 % (1.0-10.0); NEUTROPHILS % (AUTO) 65.3 % (45.0-75.0); PLATELET COUNT 420 K/UL (150-450); RED BLOOD COUNT 5.09 M/UL (4.20-5.40); RED CELL DISTRIBUTION WIDTH 13.6 % (11.6-14.8); WHITE BLOOD COUNT 13.5 K/UL (4.8-10.8)
[2019-10-08 23:32] LABS: ANION GAP 6 mmol/L (5-15); BLOOD UREA NITROGEN 19 mg/dL (7-18); CARBON DIOXIDE 29 MMOL/L (21-32); CHLORIDE 99 MMOL/L (98-107); CREATININE 0.8 MG/DL (0.55-1.30); POTASSIUM 5.6 MMOL/L (3.5-5.1); SODIUM 133 MMOL/L (136-145)
[2019-10-08 23:37] LABS: ALANINE AMINOTRANSFERASE 22 U/L (12-78); ALBUMIN 3.2 G/DL (3.4-5.0); ALBUMIN/GLOBULIN RATIO 0.6 (1.0-2.7); ALKALINE PHOSPHATASE 139 U/L (46-116); ASPARTATE AMINO TRANSFERASE 47 U/L (15-37); BILIRUBIN,TOTAL 0.4 MG/DL (0.2-1.0)
[2019-10-09 00:02] LABS: APPEARANCE,URINE CLEAR; BILIRUBIN, URINE NEGATIVE (NEGATIVE); COLOR,URINE PALE YELLOW; GLUCOSE, URINE (UA) NEGATIVE (NEGATIVE); KETONES,URINE NEGATIVE (NEGATIVE); LEUKOCYTE ESTERASE ,URINE NEGATIVE (NEGATIVE); NITRITE,URINE NEGATIVE (NEGATIVE); PH,URINE 6 (4.5-8.0); PROTEIN,URINE 1+ (NEGATIVE); UROBILINOGEN,URINE NORMAL MG/DL (0.0-1.0)
--- NOTE | 2019-10-09 00:15 | NUR ---
ED Nurse Note: Patient is sleeping at this time. NAD. Will continue to monitor.
[2019-10-09] MEDS ORDERED: ACETAMINOPHEN325 M1 ORAL (00:17)
[2019-10-09 02:00] VITALS: BP 138/92
--- NOTE | 2019-10-09 02:00 | NUR ---
ER DISCHARGE NOTE: Patient is cleared to be discharged per ERMD, pt is aox4, on room air, with stable vital signs. pt was given dc and prescription instructions, pt was able to verbalize understanding, pt id band and iv site removed without complications. pt is able to ambulate with steady gait. pt took all belongings and patient significant other picked her up.
== END 2019-10-09 02:00 | disposition home or self-care (01) ==
LOC: EDBD 22:00 → EMR 22:16
DX: R52 Pain, unspecified (principal); F41.9 Anxiety disorder, unspecified; F20.9 Schizophrenia, unspecified; I10 Essential (primary) hypertension; J44.9 Chronic obstructive pulmonary disease, unspecified; E11.9 Type 2 diabetes mellitus without complications; Z85.9 Personal history of malignant neoplasm, unspecified; Z91.14 Patient's other noncompliance with medication regimen; Z86.73 Personal history of transient ischemic attack (TIA), and cerebral infarction without residual deficits; D72.829 Elevated white blood cell count, unspecified
CPT/HCPCS: 36415; 71045; 80053; 81003; 84484; 85025; 99284

== ENCOUNTER 2020-02-24 10:50 | Emergency (ER) | payer SELFPAY ==
--- NOTE | 2020-02-24 11:30 | NUR ---
ED Nurse Note: pt not in waiting room
--- NOTE | 2020-02-24 11:40 | NUR ---
ED Nurse Note: pt left without being seen
== END 2020-02-24 15:00 | disposition left against medical advice (07) ==
LOC: EMR 13:51
DX: R52 Pain, unspecified (principal); Z53.21 Procedure and treatment not carried out due to patient leaving prior to being seen by health care provider